=== PATIENT | male | born 1955 | race Caucasian/White ===

== ENCOUNTER 2020-07-14 07:34 | Outpatient (REF) | payer OTHER, SELFPAY | END 2020-07-14 07:35 | disposition home or self-care (01) | LOC: HO.LAB 07:34 | PROVIDERS: PCP Internal Medicine; Visit Provider Internal Medicine | DX: Z12.5 Encounter for screening for malignant neoplasm of prostate (principal) | CPT/HCPCS: 84153 ==

== ENCOUNTER 2021-01-11 09:42 | Outpatient (REF) | payer MEDICARE, SELFPAY ==
[2021-01-11 10:59] LABS: MANUAL DIFF FLAG NO
[2021-01-11 11:07] LABS: Basophils Percent Auto 0.6 % (0-2); Eosinophils Absolute Auto 0.1 X10*3/uL (0.0-0.4); Eosinophils Percent Auto 1.7 % (0-4); Hematocrit 47.8 % (42-52); Hemoglobin 15.9 g/dl (14.0-18.0); Imm Gran Abs Auto 0.01 X10*3/uL (0.00-0.03); Imm Gran Pct Auto 0.2 % (0.0-0.4); Lymphocytes Absolute Auto 1.4 X10*3/uL (1.2-4.9); Lymphocytes Percent Auto 25.9 % (20-40); Mean Corpuscular HGB Conc 33.3 g/dl (31.0-36.0); Mean Corpuscular Hemoglobin 32.7 pg (27.0-33.0); Mean Corpuscular Volume 98.4 fL (80-98); Mean Platelet Volume 11.4 fL (9.4-12.4); Monocytes Absolute Auto 0.5 X10*3/uL (0.1-1.2); Monocytes Percent Auto 10.3 % (2-11); Neutrophils Absolute Auto 3.2 X10*3/uL (2.0-8.3); Neutrophils Percent Auto 61.3 % (45-73); Platelet Count 145 X10*3/uL (160-400); Red Blood Count 4.86 X10*6/uL (4.60-5.80); White Blood Count 5.2 X10*3/uL (4.8-10.8)
[2021-01-11 11:45] LABS: Cholesterol 167 mg/dL; HDL Cholesterol 50 mg/dL; LDL Cholesterol Calculated 96 mg/dl; Triglycerides 107 mg/dL
[2021-01-11 12:01] LABS: Alanine Aminotransferase 14 U/L (0-40); Albumin Level 4.4 g/dL (3.5-5.0); Alkaline Phosphatase 78 U/L (39-117); Anion Gap 10 (12-20); Aspartate Amino Transferase 16 U/L (5-37); Bilirubin Total 1.2 mg/dL (0.0-1.0); Blood Urea Nitrogen 18 mg/dL (9-16); Calcium 8.8 mg/dL (8.4-10.2); Carbon Dioxide 30 mmol/L (22-29); Chloride 106 mmol/L (96-108); Estimated Glomerular Filt Rate 58; Glucose Random 90 mg/dL (60-115); Potassium 4.4 mmol/L (3.3-5.1); Sodium 142 mmol/L (135-145)
[2021-01-11 12:07] LABS: Thyroid Stimulating Hormone 0.64 uIU/mL (0.32-4.0)
[2021-01-14 21:16] LABS: Transferrin 249 mg/dL (188-341)
[2021-01-18 12:27] LABS: VITAMIN D (1,25 OH) D3 49 pg/mL; Vit D (1,25-Dihydroxy) Total 49 pg/mL (18-72); Vitamin D (1,25 OH) D2 <8 pg/mL
== END 2021-01-11 09:43 | disposition home or self-care (01) ==
LOC: HO.LAB 09:42
PROVIDERS: Absent Provider Internal Medicine; PCP Internal Medicine; Visit Provider Orthopaedic Surgery
DX: E78.9 Disorder of lipoprotein metabolism, unspecified (principal); K59.00 Constipation, unspecified; E46 Unspecified protein-calorie malnutrition; E55.9 Vitamin D deficiency, unspecified; M25.551 Pain in right hip
CPT/HCPCS: 36415; 80053; 80061; 82652; 84134; 84443; 84466; 85025

== ENCOUNTER 2021-07-27 08:35 | Outpatient (REF) | payer MEDICARE, OTHER, SELFPAY ==
[2021-07-27 08:56] LABS: MANUAL DIFF FLAG NO
[2021-07-27 09:13] LABS: Basophils Percent Auto 0.9 % (0-2); Eosinophils Absolute Auto 0.1 X10*3/uL (0.0-0.4); Eosinophils Percent Auto 2.6 % (0-4); Hematocrit 44.7 % (42-52); Imm Gran Abs Auto 0.01 X10*3/uL (0.00-0.03); Imm Gran Pct Auto 0.2 % (0.0-0.4); Lymphocytes Percent Auto 23.2 % (20-40); Mean Corpuscular HGB Conc 33.6 g/dl (31.0-36.0); Mean Corpuscular Hemoglobin 33.2 pg (27.0-33.0); Mean Corpuscular Volume 98.9 fL (80-98); Mean Platelet Volume 11.3 fL (9.4-12.4); Monocytes Absolute Auto 0.5 X10*3/uL (0.1-1.2); Monocytes Percent Auto 11.5 % (2-11); Neutrophils Absolute Auto 2.6 X10*3/uL (2.0-8.3); Neutrophils Percent Auto 61.6 % (45-73); Platelet Count 152 X10*3/uL (160-400); Red Blood Count 4.52 X10*6/uL (4.60-5.80); Red Cell Distribution Width 12.5 % (11.0-16.0); White Blood Count 4.3 X10*3/uL (4.8-10.8)
[2021-07-27 09:53] LABS: Alanine Aminotransferase 19 U/L (0-40); Albumin Level 4.2 g/dL (3.5-5.0); Alkaline Phosphatase 78 U/L (39-117); Anion Gap 10 (12-20); Aspartate Amino Transferase 32 U/L (5-37); Bilirubin Total 1.1 mg/dL (0.0-1.0); Blood Urea Nitrogen 12 mg/dL (9-16); Calcium 9.2 mg/dL (8.4-10.2); Carbon Dioxide 29 mmol/L (22-29); Chloride 104 mmol/L (96-108); Estimated Glomerular Filt Rate > 60; Glucose Random 101 mg/dL (60-115); Potassium 4.2 mmol/L (3.3-5.1); Sodium 139 mmol/L (135-145); Total Protein 6.7 g/dL (6.5-8.0)
[2021-07-27 10:13] LABS: Free T4 (Free Thyroxine) 0.92 ng/dL (0.71-1.85)
[2021-07-27 10:14] LABS: Prostate Specific Antigen Scr 1.43 ng/mL (<0.05-4.0); Thyroid Stimulating Hormone 0.47 uIU/mL (0.32-4.0)
[2021-07-27 10:28] LABS: Appearance Urine CLEAR; Color Urine YELLOW; Glucose Urine UA NEG (NEG); Leukocyte Esterase Urine NEG (NEG); Nitrite Urine NEG (NEG); Urine Blood NEG (NEG); Urine Ketones NEG (NEG); Urine Protein NEG (NEG-TRACE)
[2021-07-29 08:01] LABS: HIV AB/AG Nonreactive (Nonreactive); HIV Num 1 0.06 S/CO (0.00-0.99); ~Hepatitis C Antibody Nonreactive (Nonreactive)
== END 2021-07-27 08:36 | disposition home or self-care (01) ==
LOC: HO.LAB 08:35
PROVIDERS: PCP Internal Medicine; Visit Provider Internal Medicine
DX: Z12.5 Encounter for screening for malignant neoplasm of prostate (principal); Z11.59 Encounter for screening for other viral diseases; Z11.4 Encounter for screening for human immunodeficiency virus [HIV]; M89.49 Other hypertrophic osteoarthropathy, multiple sites; R63.4 Abnormal weight loss
CPT/HCPCS: 36415; 80053; 81003; 84153; 84439; 84443; 85025; 86803; 87389

== ENCOUNTER 2022-08-02 07:13 | Outpatient (REF) | payer MEDICARE, SELFPAY ==
[2022-08-02 07:29] LABS: MANUAL DIFF FLAG NO
[2022-08-02 08:09] LABS: Basophils Absolute Auto 0.1 X10*3/uL (0.0-0.2); Basophils Percent Auto 0.8 % (0-2); Eosinophils Absolute Auto 0.3 X10*3/uL (0.0-0.4); Eosinophils Percent Auto 5.6 % (0-4); Hematocrit 47.9 % (42.0-52.0); Hemoglobin 16.1 g/dl (14.0-18.0); Imm Gran Abs Auto 0.01 X10*3/uL (0.00-0.03); Imm Gran Pct Auto 0.2 % (0.0-0.4); Lymphocytes Absolute Auto 1.6 X10*3/uL (1.2-4.9); Lymphocytes Percent Auto 27.1 % (20-40); Mean Corpuscular HGB Conc 33.6 g/dl (31.0-36.0); Mean Corpuscular Hemoglobin 32.3 pg (27.0-33.0); Mean Platelet Volume 10.7 fL (9.4-12.4); Monocytes Absolute Auto 0.6 X10*3/uL (0.1-1.2); Monocytes Percent Auto 10.8 % (2-11); Neutrophils Absolute Auto 3.3 x10*3/uL (2.0-8.3); Neutrophils Percent Auto 55.5 % (45-73); Platelet Count 159 X10*3/uL (160-400); Red Blood Count 4.99 X10*6/uL (4.60-5.80); Red Cell Distribution Width 12.2 % (11.0-16.0); White Blood Count 5.9 X10*3/uL (4.8-10.8)
[2022-08-02 08:19] LABS: Estimated Average Glucose 108 mg/dL; Hemoglobin A1c % 5.4 %
[2022-08-02 08:44] LABS: Alanine Aminotransferase 14 U/L (0-40); Albumin Level 4.2 g/dL (3.5-5.0); Alkaline Phosphatase 76 U/L (39-117); Anion Gap 13 (12-20); Aspartate Amino Transferase 20 U/L (5-37); Bilirubin Total 0.9 mg/dL (0.0-1.0); Blood Urea Nitrogen 14 mg/dL (9-16); Calcium 9.4 mg/dL (8.4-10.2); Carbon Dioxide 29 mmol/L (22-29); Chloride 104 mmol/L (96-108); Cholesterol 168 mg/dL; Estimated Glomerular Filt Rate 58; Glucose Random 94 mg/dL (60-115); HDL Cholesterol 47 mg/dL; LDL Cholesterol Calculated 96 mg/dl; Potassium 4.4 mmol/L (3.3-5.1); Sodium 142 mmol/L (135-145); Total Protein 6.8 g/dL (6.5-8.0); Triglycerides 129 mg/dL
[2022-08-02 09:06] LABS: Free T4 (Free Thyroxine) 0.96 ng/dL (0.71-1.85); Prostate Specific Antigen 1.76 ng/mL (<0.05-4.0); Thyroid Stimulating Hormone 1.04 uIU/mL (0.32-4.0)
== END 2022-08-02 07:14 | disposition home or self-care (01) ==
LOC: HO.LAB 07:13
PROVIDERS: PCP Internal Medicine; Visit Provider Internal Medicine
DX: M15.9 Polyosteoarthritis, unspecified (principal); M79.641 Pain in right hand; M79.642 Pain in left hand; R73.01 Impaired fasting glucose; R53.81 Other malaise; R53.83 Other fatigue; D69.6 Thrombocytopenia, unspecified; Z12.5 Encounter for screening for malignant neoplasm of prostate; Z13.220 Encounter for screening for lipoid disorders
CPT/HCPCS: 36415; 80053; 80061; 83036; 84153; 84439; 84443; 85025

== ENCOUNTER 2023-02-28 08:49 | Outpatient (REF) | payer MEDICARE, OTHER, SELFPAY ==
[2023-02-28 09:07] LABS: MANUAL DIFF FLAG NO
[2023-02-28 09:16] LABS: Basophils Absolute Auto 0.1 X10*3/uL (0.0-0.2); Basophils Percent Auto 0.9 % (0-2); Eosinophils Absolute Auto 0.2 X10*3/uL (0.0-0.4); Eosinophils Percent Auto 4.2 % (0-4); Hematocrit 46.5 % (42.0-52.0); Hemoglobin 15.8 g/dl (14.0-18.0); Imm Gran Abs Auto 0.01 X10*3/uL (0.00-0.03); Imm Gran Pct Auto 0.2 % (0.0-0.4); Lymphocytes Absolute Auto 1.5 X10*3/uL (1.2-4.9); Lymphocytes Percent Auto 25.5 % (20-40); Mean Corpuscular Volume 97.1 fL (80.0-98.0); Mean Platelet Volume 10.8 fL (9.4-12.4); Monocytes Absolute Auto 0.7 X10*3/uL (0.1-1.2); Monocytes Percent Auto 11.3 % (2-11); Neutrophils Absolute Auto 3.3 x10*3/uL (2.0-8.3); Neutrophils Percent Auto 57.9 % (45-73); Platelet Count 149 X10*3/uL (160-400); Red Blood Count 4.79 X10*6/uL (4.60-5.80); Red Cell Distribution Width 12.1 % (11.0-16.0); White Blood Count 5.7 X10*3/uL (4.8-10.8)
[2023-02-28 09:47] LABS: Alanine Aminotransferase 21 U/L (0-40); Alkaline Phosphatase 69 U/L (39-117); Anion Gap 10 (12-20); Aspartate Amino Transferase 21 U/L (5-37); Bilirubin Total 0.9 mg/dL (0.0-1.0); Blood Urea Nitrogen 15 mg/dL (9-16); Calcium 9.1 mg/dL (8.4-10.2); Carbon Dioxide 29 mmol/L (22-29); Chloride 105 mmol/L (96-108); Estimated Glomerular Filt Rate 57; Glucose Random 87 mg/dL (60-115); Potassium 4.1 mmol/L (3.3-5.1); Sodium 140 mmol/L (135-145); Total Protein 6.5 g/dL (6.5-8.0)
== END 2023-02-28 08:50 | disposition home or self-care (01) ==
LOC: HO.LAB 08:49
PROVIDERS: PCP Internal Medicine; Visit Provider Internal Medicine
DX: M15.9 Polyosteoarthritis, unspecified (principal)
CPT/HCPCS: 36415; 80053; 85025

== ENCOUNTER 2023-04-08 13:06 | Outpatient (REF) | payer MEDICARE, OTHER, SELFPAY ==
[2023-04-08 14:32] LABS: Blood Urea Nitrogen 17 mg/dL (9-16); Estimated Glomerular Filt Rate 57
== END 2023-04-08 13:07 | disposition home or self-care (01) ==
LOC: HO.LAB 13:06
PROVIDERS: PCP Internal Medicine; Visit Provider Internal Medicine
DX: R79.89 Other specified abnormal findings of blood chemistry (principal)
CPT/HCPCS: 36415; 82565; 84520

== ENCOUNTER 2023-04-16 08:30 | Outpatient (REF) | payer MEDICARE, OTHER, SELFPAY ==
--- NOTE | ~2023-04-16 | US_ITS ---
EXAMINATION: US RETROPERITONEAL LIMITED (RENAL ONLY) CLINICAL INFORMATION: Renal insufficiency. COMPARISON: None available. TECHNIQUE: Real-time imaging of the kidneys. FINDINGS: RIGHT KIDNEY: 12.6 x 5.6 x 5.8 cm (SAG x AP x TRV). The kidney is normal in size, contour, and echogenicity. Renal cortical thickness is normal. No calculi or focal parenchymal lesions. No hydronephrosis. LEFT KIDNEY: 12.9 x 6.0 x 5.3 cm (SAG x AP x TRV). The kidney is normal in size, contour, and echogenicity. Renal cortical thickness is normal. No calculi or focal parenchymal lesions. No hydronephrosis. US/US renal BI IMPRESSION: No evidence of obstruction, suspicious mass or shadowing calculus. The renal cortex appears normal in thickness and the renal length is within normal limits on each side
== END 2023-04-16 08:31 | disposition home or self-care (01) ==
LOC: HO.US 08:30
PROVIDERS: PCP Internal Medicine; Visit Provider Internal Medicine
DX: N28.9 Disorder of kidney and ureter, unspecified (principal)
CPT/HCPCS: 76775

== ENCOUNTER 2023-04-24 17:44 | Emergency (ER) | payer MEDICARE, OTHER, SELFPAY ==
--- NOTE | ~2023-04-24 | CT_ITS ---
EXAMINATION: CT HEAD WITHOUT CONTRAST CT CERVICAL SPINE WITHOUT CONTRAST CLINICAL INFORMATION: Fall, pain. COMPARISON: None TECHNIQUE: Contiguous axial imaging was performed from the skull base to vertex without intravenous administration of contrast. Contiguous axial imaging was performed from the upper chest through the skull base without intravenous administration of contrast. Coronal and sagittal reformats were obtained at the acquisition workstation. This CT examination was performed using dose optimization techniques as appropriate, variously including the following: *Automated exposure control *Adjustment of mA and/or kV according to patient size (this includes techniques or standardized protocols for targeted exams where dose is matched to indication/reason for exam; i.e. extremities or head) *Use of iterative reconstruction technique DLP: 751 and 607 mGy-cm FINDINGS: Head: There is no evidence of acute intracranial hemorrhage or edematous territorial infarction. A few foci of hypoattenuation in the periventricular and deep white matter are consistent with mild microangiopathy. Luis-white matter differentiation is preserved. Proportional prominence of the ventricles and sulcal spaces. No evidence for obstructive hydrocephalus. No abnormal mass effect or midline shift. No extra-axial fluid collections. No acute soft tissue or osseous abnormalities. Partial opacification of the frontal sinuses and ethmoidal air cells. Small air-fluid level in the sphenoidal sinuses. The mastoids and middle ear cavities are clear. Cervical Spine: The atlantooccipital and atlantoaxial articulations remain well aligned. Straightening of the normal cervical lordosis. Otherwise, there is anatomic alignment of the vertebral bodies and posterior elements. No evidence of acute fracture or subluxation. Mild to moderate multilevel cervical spondylosis leading to various degrees of neural foraminal encroachment. There is no prevertebral soft tissue swelling. The thyroid gland and remaining cervical soft tissues are normal in appearance. The lung apices demonstrate no abnormalities. CT/CT cervical spine wo IV con IMPRESSION: 1. No acute intracranial pathology. 2. No acute cervical spinal fractures or malalignment. 3. Paranasal sinus disease. Correlate clinically for acute sinusitis.
--- NOTE | ~2023-04-24 | XR_ITS ---
EXAMINATION: XR WRIST, RIGHT CLINICAL INFORMATION: Fall, pain. COMPARISON: None available. TECHNIQUE: Four views of the right wrist. FINDINGS: No evidence of acute fractures or subluxation. Moderate joint space narrowing and subcortical sclerosis of the first carpometacarpal joint and triscaphe space. No erosions or abnormal soft tissue calcifications. No unexpected radiopaque foreign bodies. XR/XR wrist RT min 3V IMPRESSION: 1. No acute fractures or subluxation. 2. 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
--- NOTE | ~2023-04-24 | XR_ITS ---
EXAMINATION: XR SHOULDER, RIGHT CLINICAL INFORMATION: Fall. COMPARISON: None available. TECHNIQUE: Four views of the right shoulder. FINDINGS: No acute fractures or subluxation. Moderate narrowing with subcortical sclerosis and proliferative changes in the acromioclavicular joint suggesting degenerative osteoarthritis. No abnormal soft tissue calcifications. Included portions of the right-sided ribs and right lung are within normal limits. XR/XR shoulder RT min 2V IMPRESSION: 1. No acute fractures or subluxation. 2. 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
[2023-04-24 18:47] VITALS: BP 145/91; PULSE 66; RESP 18; TEMP 36.6; O2SAT 95; BMI 33.5
--- NOTE | 2023-04-24 18:49 | ED_ITS ---
HPI - General Adult General Chief complaint: Fall Stated complaint: Fall Time Seen by Provider: 04/24/23 20:51 Source: patient Mode of arrival: ambulatory Limitations: no limitations History of Present Illness HPI narrative: Patient is a 67 year old assigned male at with a history of cervical arthritis presenting to the emergency department today with right wrist, should, and head pain after a fall. Patient states that he was attempting to step around a curb when she tripped and fell, striking his head. Patient denies any loss of consciousness. Patient states that his right wrist and 5th finger knuckle are what hurts the most. Patient denies any dizziness, lightheadedness, abdominal pain, nausea, vomiting, fever, chills, blurry vision, double vision, loss of vision, chest pain, difficulty breathing, shortness of breath, back pain, night sweats, pain with urination, increased urinary frequency, increased urinary urgency, blood in his urine or stool, syncope or a near syncopal episode, bowel incontinence, bladder incontinence, bowel retention, bladder retention, or any other complaints at this time. Onset (ago): hour(s) Location: head, right and upper extremity Severity: mild Severity scale (1-10): 3 Quality: aching and dull Pain Consistency: constant Relieving factors: none Exacerbating factors: none Associated symptoms: denies other symptoms Treatments prior to arrival: none Related Data Allergies Allergy/AdvReac Type Severity Reaction Status Date / Time amoxicillin [AMOXICILLIN] Allergy Unknown HIVES Verified 04/24/23 18:55 diclofenac [DICLOFENAC] Allergy Unknown HIVES Verified 04/24/23 18:55 Review of Systems Constitutional: Constitutional: Reports no additional constitutional complaints, Denies chills, Denies fever(s) and Denies night sweats Eyes: Eyes: Reports no additional eye complaints, Denies blurry vision, Denies change in vision, Denies diplopia, Denies eye discharge, Denies loss of vision and Denies eye pain ENT: Denies dizziness Cardiovascular: Cardiovascular: Reports no additional cardiovascular complaints, Denies chest pain, Denies lightheadedness, Denies Loss of Consciousness and Denies dyspnea Respiratory: Respiratory: Reports no additional respiratory complaints and Denies dyspnea Gastrointestinal: Gastrointestinal: Reports no additional gastrointestinal complaints, Denies abdominal pain, Denies melena, Denies hematochezia, Denies change in bowel habits and Denies change in stool character Genitourinary: Genitourinary: Reports no additional male genitourinary complaints, Denies hematuria, Denies oliguria, Denies difficulty urinating, Denies dysuria, Denies urinary frequency, Denies urinary hesitancy, Denies urinary incontinence and Denies urinary urgency Musculoskeletal: Musculoskeletal: Reports no additional musculoskeletal complaints, Denies numbness and Denies tingling Comments: right shoulder pain, right wrist / 5th knuckle pain, and headache Neurologic: Denies dizziness, Denies loss of vision, Denies numbness and Denies tingling Psychiatric: Psychiatric: Reports no additional psychiatric complaints Endocrine: Endocrine: Reports no additional endocrine complaints Hematologic/Lymphatic: Hematologic/Lymphatic: Reports no additional hematologic/lymphatic complaints Allergic/Immunologic: Allergic/Immunologic: Reports no additional allergic/immunologic complaints PMFSH Past Medical History Attestation statement: The following information was validated with the patient. Source: old records reviewed and nursing notes reviewed Social History Social History Advance Directives: No Advance Directives Information Provided: No Physical Exam ED Vital Signs: Vital Signs - 24 hr 04/24/23 18:47 Temperature 98 F Pulse Rate 66 Respiratory Rate 18 Blood Pressure 145/91 H Pulse Oximetry 95 Oxygen Delivery Method Room Air BMI result Body Mass Index 33.5 Const General: cooperative, no acute distress, alert and awake Nutritional Appearance: well nourished Orientation/consciousness: patient oriented x3 Limitations: no limitations HENMT Head: Yes normal to inspection and Yes atraumatic Ears: hearing grossly normal bilaterally and external ears normal General nose exam: Normal external nose present, no nasal discharge noted and no epistaxis Face and sinus: Yes normal facial exam, No abrasion and No laceration Mouth: Normal oral and palatal mucosa present, no drooling and no muffled voice Eyes General: appearance normal, both eyes and all related structures Periorbital: periorbital findings normal Eyelids: Yes eyelids normal Conjunctivae: conjunctivae normal Pupils: Equal, round and reactive pupils present EOM: EOMs intact bilaterally Neck Neck: Yes normal visual inspection, Yes full ROM and Yes no lymphadenopathy Chest Chest palpation & inspection: normal inspection of the chest Resp Effort & Inspection: normal respiratory effort and able to speak in complete sentences GI Inspection: Yes normal to inspection Neuro General: patient oriented x3 and moves all extremities Cranial nerves: Yes Equal, round and reactive pupils present Cognition (Neuro): normal cognition Motor exam (neuro): 5/5 motor strength present throughout Sensory Exam: Normal double simultaneous stimulation for sensation Coordination: [id number] test normal Extrem Other: abrasions present to the lateral aspect of the right forearm, no active bleeding, no gaping areas. Pain with palpation of the right 5th MCP joint and right wrist General: Yes full ROM and Yes capillary refill normal Psych Appearance: grossly normal Mental Status: mental status grossly normal Affect: normal affect Attitude: cooperative Thought process: Normal thought process present Thought content: Normal thought content present Insight: Good insight present (Psych) Course Course Course Narrative: RME performed by Ann Lorenzo PA-C. Patient is a 67 year old assigned male at presenting to the emergency department with a fall. 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 Patient denies any loss of consciousness. Imaging ordered. Patient placed back in the waiting room pending room availability and results. Medications Administered Discontinued Medications Generic Name Dose Route Start Last Admin Trade Name Freq PRN Reason Stop Dose Admin Bacitracin 1 appl 04/24/23 20:58 04/24/23 21:33 Bacitracin Oint 0.9 Gm Packet TOPICAL 04/24/23 20:59 1 appl ONCE ONE Administration Protocol Procedures Orthopedic Splinting/Casting Injury #1: Side: right Upper Extremity Injury Location: wrist and hand Upper Extremity Immobilizer: sling/shoulder immobilizer and ulnar gutter Medical Decision Making Medical Decision Making MDM Narrative: Patient is a 67] year old assigned male at with a history of cervical arthritis presenting to the emergency department today with right wrist / 5th knuckle pain, right shoulder pain, and a headache. Patient's physical exam was as noted in the physical exam portion of this chart. Patient's right wrist and right shoulder x-rays showed no acute process. Patient's head and C-Spine CTs showed no acute process. Given the patient's pain upon palpation to the right 5th MCP joint and wrist, I splinted the patient's right wrist in an ulnar gutter splint with a sling. Patient's PMS was intact prior to and after splint and sling placement. Patient's abrasions were covered with bacitracin and non- adherent gauze before splint placement. I explained my physical exam findings as well as all test results to the patient. I answered all questions asked by the patient. I stressed the importance of the patient taking his medication as prescribed. I stressed the importance of the patient following up with his primary care provider and an orthopedic provider. I stressed the importance of the patient returning to the emergency department immediately if his symptoms were to worsen or if he were to develop any dizziness, shortness of breath, difficulty breathing, chest pain, blurry vision, loss of vision, nausea, vomiting, abdominal pain, fever, chills, back pain, or any other complaints. Patient verbalized agreement and understanding with this treatment plan and discharge. Differential Diagnosis Differential Diagnoses: The differential diagnosis associated with the presentation includes Right wrist fx Rght wrist sprain Right wrist strain Fall Independent Interpretation I performed an independent interpretation of an: Plain X-Ray Interpretation: My interpretation is in agreement with the radiologist's impression of these imaging studies. EXAMINATION: CT HEAD WITHOUT CONTRAST CT CERVICAL SPINE WITHOUT CONTRAST CLINICAL INFORMATION: Fall, pain.? COMPARISON: None TECHNIQUE: Contiguous axial imaging was performed from the skull base to vertex without intravenous administration of contrast. Contiguous axial imaging was performed from the upper chest through the skull base without intravenous administration of contrast. Coronal and sagittal reformats were obtained at the acquisition workstation. This CT examination was performed using dose optimization techniques as appropriate, variously including the following: *Automated exposure control *Adjustment of mA and/or kV according to patient size (this includes techniques or standardized protocols for targeted exams where dose is matched to indication/reason for exam; i.e. extremities or head) *Use of iterative reconstruction technique DLP: 751 and 607 mGy-cm FINDINGS: Head: There is no evidence of acute intracranial hemorrhage or edematous territorial infarction. A few foci of hypoattenuation in the periventricular and deep white matter are consistent with mild microangiopathy. Luis-white matter differentiation is preserved. Proportional prominence of the ventricles and sulcal spaces. No evidence for obstructive hydrocephalus. No abnormal mass effect or midline shift. No extra-axial fluid collections. No acute soft tissue or osseous abnormalities. Partial opacification of the frontal sinuses and ethmoidal air cells. Small air-fluid level in the sphenoidal sinuses. The mastoids and middle ear cavities are clear. Cervical Spine: The atlantooccipital and atlantoaxial articulations remain well aligned. Straightening of the normal cervical lordosis. Otherwise, there is anatomic alignment of the vertebral bodies and posterior elements. No evidence of acute fracture or subluxation. Mild to moderate multilevel cervical spondylosis leading to various degrees of neural foraminal encroachment. There is no prevertebral soft tissue swelling. The thyroid gland and remaining cervical soft tissues are normal in appearance. The lung apices demonstrate no abnormalities. CT/CT head/brain wo IV con IMPRESSION: 1.? No acute intracranial pathology. 2.? No acute cervical spinal fractures or malalignment. 3.? Paranasal sinus disease. Correlate clinically for acute sinusitis. Dictated By: Mary Zuniga Signed By: Electronically signed by Rosalino 04/24/232024 EXAMINATION: XR WRIST, RIGHT CLINICAL INFORMATION: Fall, pain.? COMPARISON: None available.? TECHNIQUE: Four views of the right wrist. FINDINGS: No evidence of acute fractures or subluxation. Moderate joint space narrowing and subcortical sclerosis of the first carpometacarpal joint and triscaphe space. No erosions or abnormal soft tissue calcifications. No unexpected radiopaque foreign bodies.? XR/XR wrist RT min 3V IMPRESSION: 1.? No acute fractures or subluxation. 2.? 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 Dictated By: Mary Zuniga Signed By: Electronically signed by Mary Zuniga 04/24/231930 EXAMINATION: XR SHOULDER, RIGHT CLINICAL INFORMATION: Fall.? COMPARISON: None available.? TECHNIQUE: Four views of the right shoulder. FINDINGS: No acute fractures or subluxation. Moderate narrowing with subcortical sclerosis and proliferative changes in the acromioclavicular joint suggesting degenerative osteoarthritis. No abnormal soft tissue calcifications. Included portions of the right-sided ribs and right lung are within normal limits.? XR/XR shoulder RT min 2V IMPRESSION: 1.? No acute fractures or subluxation. 2.? 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 Dictated By: Mary Zuniga Signed By: Electronically signed by Rosalino 04/24/231928 Radiology Impression Discussion of test interpretation with radiology: I have reviewed the radiologist's reading. Discharge Plan Discharge Clinical Impression: Sprain of right wrist, Abrasion Patient Disposition: Home, Self-Care Instructions: Sprain (ED) Additional Instructions: Follow up with your primary care provider and an orthopedic provider. Return to the emergency department immediately if your symptoms worsen or if you develop any dizziness, shortness of breath, difficulty breathing, chest pain, blurry vision, loss of vision, nausea, vomiting, abdominal pain, fever, chills, back pain, or any other complaints. Referrals: [facility] [Provider Group] (Call to establish and follow up with an orthopedic provider.) Donald Pérez MD [Primary Care Provider] - Interventions: ED Discharge Assessment Last Done: 04/24/23 21:34 Discharge Date/Time: 04/24/23 22:14 Print Language: Monegasque
[2023-04-24] MEDS: Bacitracin Oint 0.9 GM PACKET 1 APPL TOPICAL (21:33)
== END 2023-04-24 22:14 | disposition home or self-care (01) ==
PROVIDERS: Emergency Provider Emergency Medicine; PCP Internal Medicine
DX: S63.501A Unspecified sprain of right wrist, initial encounter (principal); S50.811A Abrasion of right forearm, initial encounter; W10.1XXA Fall (on)(from) sidewalk curb, initial encounter; R51.9 Headache, unspecified; Y93.9 Activity, unspecified; Y92.480 Sidewalk as the place of occurrence of the external cause; Y99.9 Unspecified external cause status
CPT/HCPCS: 29125; 70450; 72125; 73030; 73110; 99283; 99284

== ENCOUNTER 2023-05-06 12:54 | Outpatient (AMB) | payer MEDICARE, SELFPAY ==
--- NOTE | 2023-05-06 13:15 | MHC.OFFVIS ---
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 Patient reports that he had a fall landing on right shoulder, arm and hip. He [place] [facility] [place] where xrays were taken and was placed in a splint. Currently he has pain in his 5th MCP joint as well as swelling. States tenderness in his right shoulder. Denies numbness or tingling. Hx of hip replacement in January of 2021. 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 He was seen at ER where x-rays were performed and he was placed in a splint. He states he has pain and swelling in his 5th MCP joint. He also c/o tenderness in is right shoulder. He denies any numbness or tingling. [facility] Surgical History (Updated 05/06/23 @ 13:22 by ESSIE Kay) History of right hip replacement Social History (Updated 05/06/23 @ 13:28 by ESSIE Kay) Patient Tobacco Use Status: Never used Tobacco Current occupational status: retired Review of Systems Const All systems reviewed & are unremarkable except as noted in HPI and below Physical Exam Vital Signs: BMI result Body Mass Index 33.5 Extrem Other: Right 5th metacarpal: Pain along the 5th mcp. No pain along the anatomical snuffbox. He is able to make a full fist and fully extend. He does have pain along the Scapholunate distribution. Pain with compression. NVI. Results Reviewed Results Reviewed: Xrays were obtained in the office today and personally reviewed by me of the right hand negative for obvious fracture or dislocation. Assessment & Plan Assessment & Plan (1) Sprain of right wrist: Code(s): S63.501A - Unspecified sprain of right wrist, initial encounter Plan We discussed options which include OT, NSAIDs and bracing. The patient will proceed with PT and NSAIDs. He was given a comfort wrist splint to wear at night and with any type of strenuous activities for the next 3 weeks. If symptoms persist or worsens, patient will contact the office, otherwise follow-up as needed. Orders: Orders XR hand RT min 3V Today M79.641 - Pain in right hand OT Evaluation and Treatment Today S63.501A - Unspecified sprain of right wrist, initial encounter Patient Instructions: Scribed for Dillon Clark PA-C, by Sunny Arango medical detailist, on 05/06/2023 at 1:00 PM EST. I, Dillon Clark PA-C, have personally reviewed and agree with the information entered by the scribe. Coding Level of Care Code New Pt Level 3 (82897) Diagnoses Sprain of right wrist S63.501A
[2023-05-06 13:27] VITALS: BMI 33.5
== END 2023-05-06 14:26 | disposition home or self-care (01) ==
PROVIDERS: PCP Internal Medicine; Visit Provider Physician Assistant
DX: S63.501A Unspecified sprain of right wrist, initial encounter (principal)
CPT/HCPCS: 99203

== ENCOUNTER 2023-05-06 12:54 | Outpatient (REF) | payer MEDICARE, OTHER, SELFPAY ==
--- NOTE | ~2023-05-06 | XR_ITS ---
EXAMINATION: XR HAND, RIGHT CLINICAL INFORMATION: Pain in right hand COMPARISON: None available. TECHNIQUE: PA, lateral, and oblique views of the right hand. FINDINGS: The bones and soft tissues are normal. No fracture. Alignment is anatomic. Joint spaces are maintained. Nonspecific cyst is seen in the navicular bone. Small erosion is seen in the distal first metacarpal. No soft tissue calcifications. XR/XR hand RT min 3V IMPRESSION: No acute bony abnormality.
== END 2023-05-06 12:55 | disposition home or self-care (01) ==
LOC: HO.HOSX 12:54
PROVIDERS: PCP Internal Medicine; Visit Provider Physician Assistant
DX: S63.501A Unspecified sprain of right wrist, initial encounter (principal); M79.641 Pain in right hand; M25.511 Pain in right shoulder; W19.XXXA Unspecified fall, initial encounter; Y93.9 Activity, unspecified; Y92.9 Unspecified place or not applicable; Y99.9 Unspecified external cause status
CPT/HCPCS: 73130; 99202

== ENCOUNTER 2023-07-14 14:00 | Outpatient (RCR) | payer MEDICARE, OTHER, SELFPAY ==
--- NOTE | 2023-07-14 15:09 | MHC.OT.DC ---
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 Continued low wrist pain with end range wrist flexion and extension and with strain at D5 MCP jt . Goals met for ROM , hand function and HEP Wrist discomfort with extensive mousing , spraying with a spray can, opening new jar lids and lifting greater than 5 pounds. Proximal forearm and upper arm pain with heavier weights. Quick DASH score 11.6 points Wrist flexion 60 deg. Wrist ext 70 deg [address]ination [address] R 67 lb L 110 lb Increase in right forearm circumference noted Pt is highly motivated and independent with his HEP. Slow improvement due to unrelated, undiagnosed proximal pathology Goals met Electronically Signed By: Serena Ceballos OT CHT CLT Reviewed/agree with student documentation: Therapist: Please Sign and return to therapist, thank you for your referral.
== END 2023-07-14 15:10 | disposition home or self-care (01) ==
LOC: HO.OT 14:00
PROVIDERS: PCP Internal Medicine; Visit Provider Physician Assistant
DX: S63.501A Unspecified sprain of right wrist, initial encounter (principal)
CPT/HCPCS: 97033; 97110; 97140; 97165

== ENCOUNTER 2023-08-12 12:55 | Outpatient (AMB) | payer MEDICARE, OTHER, SELFPAY ==
--- NOTE | 2023-08-12 13:06 | HO.SPINEOV ---
Intake Intake Visit Reasons: second opinion on SX Intake Note: Mr. Vincent is here today c/o neck and low back pain. Seeking 2nd opinion. MRI done @ [facility]/brought disc. 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 Mehdi Vincent for right arm weakness. HPI: This patient has a longstanding history of posterior neck pain and intermittent right supra clavicular and shoulder pain. Currently has no radiating pain down his arm. His main complaint is atrophy of his biceps and diffuse arm weakness and intermittent numbness of his palmar side of his hand. The weakness is not progressive. In fact, his strength has improved with physical therapy and exercises. 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 He has seen 3 other surgeons. Two of them recommended an anterior diskectomy and fusion while another surgeon advised him to undergo a nonfusion surgery to decompress the C5 and C6 nerve root. A 2nd complaint is moderate right-sided back pain without radiculopathy. He had a diskectomy done 35 years ago. Physical Exam: Pleasant male. On inspection there is atrophy of the biceps musculature. 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 Normal strength on the left arm and lower extremities. Sensory exam is intact. Biceps reflexes absent on the left side. Brachioradial reflex seems to be slightly diminished compared to the left side. Triceps reflexes are absent bilaterally. The left side is unaffected Radiological Studies: MRI of the cervical spine shows multilevel cervical spondylosis. No spinal cord compression. There is [id number] stenosis of the right C4 foramen and moderate to severe C5 and C6 foraminal stenosis with compression of the exiting nerve roots. Impression/Plan: Clinically this patient is suffering from at least a C6 radiculopathy but the C5 nerve root also seems to be involved( deltoid weakness). This corresponds with the MRI findings of C5 and C6 nerve root involvement. However I do think that a plexopathy needs to be excluded. He is scheduled to undergo an EMG in the near future. I am anxious to see what the results are. I told him that I would offer him a posterior C5-C6 foraminotomy if he does not want a fusion. I think this is a very reasonable approach as he only has unilateral symptoms. However, I stressed to him that surgery to improve weakness is not a good indication. I would only offer him surgery if he has progression of his weakness or if he develops radicular pain assuming that his symptoms are coming from the cervical spine. Thank you for allowing me to participate in your patients care. total time spent was 60 minutes in counseling ,coordination of plan, personal review of imaging, surgical decision making and subsequent plan Srinivas Renteria MD, PhD [facility] Trained Neurosurgeon Director, [facility] Coding Level of Care Code New Pt Level 5 (04103) Diagnoses Cervical spondylosis with radiculopathy M47.22
== END 2023-08-12 14:39 | disposition home or self-care (01) ==
PROVIDERS: PCP Internal Medicine; Visit Provider Neurological Surgery
DX: M47.22 Other spondylosis with radiculopathy, cervical region (principal)
CPT/HCPCS: 99205

== ENCOUNTER → 2023-08-12 12:55 | Outpatient (BNVA) | payer MEDICARE, OTHER, SELFPAY | PROVIDERS: PCP Internal Medicine; Visit Provider Neurological Surgery | DX: M47.22 Other spondylosis with radiculopathy, cervical region (principal) | CPT/HCPCS: 99202 ==

== ENCOUNTER 2023-09-11 06:05 | Outpatient (REF) | payer MEDICARE, OTHER, SELFPAY ==
[2023-09-11 06:28] LABS: MANUAL DIFF FLAG NO
[2023-09-11 07:53] LABS: Appearance Urine Clear; Color Urine Yellow; Glucose Urine UA Negative (Negative); Leukocyte Esterase Urine Negative (Negative); Nitrite Urine Negative (Negative); PH 5.5 (5.0-9.0); Specific Gravity - Urine 1.015 (1.005-1.025); Urine Blood Negative (Negative); Urine Ketones Negative (Negative); Urine Protein Negative (Neg-Trace)
[2023-09-11 07:58] LABS: Estimated Average Glucose 111 mg/dL; Hemoglobin A1c % 5.5 % (<6.0)
[2023-09-11 08:00] LABS: Basophils Percent Auto 0.6 % (0-2); Eosinophils Absolute Auto 0.2 X10*3/uL (0.0-0.4); Eosinophils Percent Auto 3.1 % (0-4); Hematocrit 43.9 % (42.0-52.0); Hemoglobin 14.9 g/dl (14.0-18.0); Imm Gran Abs Auto 0.01 X10*3/uL (0.00-0.03); Imm Gran Pct Auto 0.2 % (0.0-0.4); Lymphocytes Absolute Auto 1.4 X10*3/uL (1.2-4.9); Lymphocytes Percent Auto 26.7 % (20-40); Mean Corpuscular HGB Conc 33.9 g/dl (31.0-36.0); Mean Corpuscular Hemoglobin 32.9 pg (27.0-33.0); Mean Corpuscular Volume 96.9 fL (80.0-98.0); Mean Platelet Volume 11.4 fL (9.4-12.4); Monocytes Absolute Auto 0.4 X10*3/uL (0.1-1.2); Monocytes Percent Auto 8.2 % (2-11); Neutrophils Absolute Auto 3.2 x10*3/uL (2.0-8.3); Neutrophils Percent Auto 61.2 % (45-73); Platelet Count 164 X10*3/uL (160-400); Red Blood Count 4.53 X10*6/uL (4.60-5.80); Red Cell Distribution Width 12.5 % (11.0-16.0); White Blood Count 5.2 X10*3/uL (4.8-10.8)
[2023-09-11 08:43] LABS: Alanine Aminotransferase 27 U/L (0-40); Albumin Level 3.7 g/dL (3.5-5.0); Alkaline Phosphatase 58 U/L (39-117); Anion Gap 10 (12-20); Aspartate Amino Transferase 25 U/L (5-37); Bilirubin Total 0.6 mg/dL (0.0-1.0); Blood Urea Nitrogen 14 mg/dL (9-16); Calcium 8.8 mg/dL (8.4-10.2); Carbon Dioxide 27 mmol/L (22-29); Chloride 109 mmol/L (96-108); Estimated Glomerular Filt Rate > 60; Glucose Random 90 mg/dL (60-115); Potassium 3.5 mmol/L (3.3-5.1); Sodium 142 mmol/L (135-145); Total Protein 6.6 g/dL (6.5-8.0)
[2023-09-11 08:51] LABS: Thyroid Stimulating Hormone 0.83 uIU/mL (0.32-4.0)
[2023-09-11 08:56] LABS: Prostate Specific Antigen Scr 1.69 ng/mL (<0.05-4.0)
== END 2023-09-11 06:06 | disposition home or self-care (01) ==
LOC: HO.LAB 06:05
PROVIDERS: PCP Internal Medicine; Visit Provider Internal Medicine
DX: M54.12 Radiculopathy, cervical region (principal); M62.521 Muscle wasting and atrophy, not elsewhere classified, right upper arm; R73.01 Impaired fasting glucose; Z13.220 Encounter for screening for lipoid disorders; Z12.5 Encounter for screening for malignant neoplasm of prostate
CPT/HCPCS: 36415; 80053; 81003; 83036; 84153; 84443; 85025

== ENCOUNTER 2024-09-14 06:53 | Outpatient (REF) | payer MEDICARE, OTHER, SELFPAY ==
[2024-09-14 07:28] LABS: MANUAL DIFF FLAG NO
[2024-09-14 07:39] LABS: Basophils Percent Auto 0.5 % (0-2); Eosinophils Absolute Auto 0.2 X10*3/uL (0.0-0.4); Eosinophils Percent Auto 2.9 % (0-4); Hematocrit 46.3 % (42.0-52.0); Imm Gran Abs Auto 0.01 X10*3/uL (0.00-0.03); Imm Gran Pct Auto 0.2 % (0.0-0.4); Lymphocytes Absolute Auto 1.2 X10*3/uL (1.2-4.9); Lymphocytes Percent Auto 21.1 % (20-40); Mean Corpuscular HGB Conc 34.6 g/dl (31.0-36.0); Mean Corpuscular Hemoglobin 32.7 pg (27.0-33.0); Mean Corpuscular Volume 94.7 fL (80.0-98.0); Mean Platelet Volume 10.7 fL (9.4-12.4); Monocytes Absolute Auto 0.6 X10*3/uL (0.1-1.2); Monocytes Percent Auto 11.6 % (2-11); Neutrophils Absolute Auto 3.5 x10*3/uL (2.0-8.3); Neutrophils Percent Auto 63.7 % (45-73); Platelet Count 158 X10*3/uL (160-400); Red Blood Count 4.89 X10*6/uL (4.60-5.80); Red Cell Distribution Width 12.4 % (11.0-16.0); White Blood Count 5.5 X10*3/uL (4.8-10.8)
[2024-09-14 07:46] LABS: Appearance Urine Clear; Color Urine Dark Yellow; Glucose Urine UA Negative (Negative); Leukocyte Esterase Urine Negative (Negative); Nitrite Urine Negative (Negative); PH 5.5 (5.0-9.0); Specific Gravity - Urine 1.015 (1.005-1.025); Urine Blood Negative (Negative); Urine Ketones Negative (Negative); Urine Protein Negative (Neg-Trace)
[2024-09-14 07:53] LABS: Estimated Average Glucose 108 mg/dL; Hemoglobin A1C 140.6685 umol/L; Hemoglobin A1c % 5.4 % (<6.0); Total Hemoglobin (HGBA1C) 3975.0222 umol/L
[2024-09-14 08:11] LABS: Alanine Aminotransferase 22 U/L (0-40); Alkaline Phosphatase 83 U/L (39-117); Anion Gap 13 (12-20); Aspartate Amino Transferase 25 U/L (5-37); Bilirubin Total 0.9 mg/dL (0.0-1.0); Blood Urea Nitrogen 13 mg/dL (9-16); Calcium 9.3 mg/dL (8.4-10.2); Carbon Dioxide 26 mmol/L (22-29); Chloride 107 mmol/L (96-108); Cholesterol 149 mg/dL (<200); Estimated Glomerular Filt Rate > 60; Glucose Random 97 mg/dL (60-115); HDL Cholesterol 46 mg/dL (>40); LDL Cholesterol Calculated 82 mg/dL (<100); Potassium 3.7 mmol/L (3.3-5.1); Sodium 142 mmol/L (135-145); Total Protein 6.8 g/dL (6.5-8.0); Triglycerides 109 mg/dL (<150)
[2024-09-14 08:23] LABS: Prostate Specific Antigen Scr 2.32 ng/mL (<0.05-4.0)
[2024-09-14 08:31] LABS: Thyroid Stimulating Hormone 1.25 uIU/mL (0.32-4.0)
--- OUTSIDE RECORDS SUMMARY | 2024-09-14 22:42 | XMS_ITS | Data Portability ---
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 Pt had some upper trap compensation and difficulty moving the arm through full ROM but no significant symptoms. Plan: 2x a week for 6 week. Jamaican NMES w/ strengthening activities. [email or web address] Not available 07/19/2024 16:13:33 07/26/2024 07/26/2024 NMES parameters: 5/5 on/off, 50% duty cycle, 50BPS Assessment: Pt able to do all exercise with minimal issue. Pt had some upper trap compensation and difficulty moving the arm through full ROM but no significant symptoms. Plan: 2x a week for 6 week. [place] NMES w/ strengthening activities. [email or web address] Not available 07/28/2024 13:57:14 07/28/2024 07/28/2024 NMES parameters: 5/5 on/off, 50% duty cycle, 50BPS Assessment: Pt able to do all exercise with minimal issue. Pt had some upper trap compensation and difficulty moving the arm through full ROM but no significant symptoms. Plan: 2x a week for 6 week. [place] NMES w/ strengthening activities. Not available 07/31/2024 22:03:50 08/03/2024 08/03/2024 NMES parameters: 5/5 on/off, 50% duty cycle, 50BPS Assessment: Pt able to do all exercise without increase in symptoms. Pt noted some fatigue. Upper trap compensation still noted with movements into flexion and away from the body. Plan: 2x a week for 6 week. [place] NMES w/ strengthening activities. Not available 08/05/2024 16:01:05 08/23/2024 08/23/2024 NMES parameters: 5/5 on/off, 50% duty cycle, 50BPS Assessment: Pt able to do all exercise without increase in symptoms. Pt noted some fatigue. Reduced upper trap compensation noted today. Plan: 2x a week for 6 week. [place] NMES w/ strengthening activities. [email or web address] Not available 08/24/2024 09:29:18 Plan of Treatment Reminders Order Date Submit Date Provider Last Modified By Organization Details Last Modified Time Details Appointments PT ANY 30 2023 03:00P M ADI LUKE DPT Not available Not available Not available PT INITIAL EVAL 2024 03:00P M Savita Garcia, RESEARCH SCHOLAR Not available Not available Not available PT FOLLOW-U P 2024 03:00P M Savita Garcia, RESEARCH SCHOLAR Not available Not available Not available PT FOLLOW-U P 2024 03:00P M Savita Garcia, RESEARCH SCHOLAR Not available Not available Not available PT FOLLOW-U P 2024 03:00P M Savita Garcia, RESEARCH SCHOLAR Not available Not available Not available PT FOLLOW-U P 2024 03:00P M Savita Garcia, RESEARCH SCHOLAR Not available Not available Not available PT FOLLOW-U P 2024 03:00P M Savita Garcia, RESEARCH SCHOLAR Not available Not available Not available PT FOLLOW-U P 2024 03:00P M Savita Garcia, RESEARCH SCHOLAR Not available Not available Not available PT FOLLOW-U P 2024 03:00P M Savita Garcia, RESEARCH SCHOLAR Not available Not available Not available Lab None recorded . Referral None recorded . Procedures None recorded . Surgeries None recorded . Imaging None recorded . Medication Orders None recorded . Patient Targets Encounter Date Encounter Id Patient Goals Patient Target Last Modified By Organization Details Last Modified Time 07/19/2024 [id number] prison goal of Right Shoulder Strength -[id number] Not available Not available Not available long term care administrator goal of Right Shoulder Strength -[id number] Not available Not available Not available long term care administrator goal of Right Shoulder Strength -[id number] Not available Not available Not available 3 weeks of Sleeping -[id number] Not available Not available Not available 3 weeks of Overall ADL's NOTE Not available Not available Not available prison goal of Overall ADL's -[id number] Not available Not available Not available long term care administrator goal of Reaching NOTE Not available Not available Not available long term care administrator goal of Lifting -[id number] Not available Not available Not available 3 weeks of Pain NOTE Not available Not available Not available prison goal of Pain NOTE Not available Not available Not available 07/26/2024 [id number] prison goal of Right Shoulder Strength -[id number] Not available Not available Not available long term care administrator goal of Right Shoulder Strength -[id number] Not available Not available Not available long term care administrator goal of Right Shoulder Strength -[id number] Not available Not available Not available 3 weeks of Sleeping -026092 Not available Not available Not available 3 weeks of Overall ADL's NOTE Not available Not available Not available long term care administrator goal of Overall ADL's -[id number] Not available Not available Not available long term care administrator goal of Reaching NOTE Not available Not available Not available long term care administrator goal of Lifting -[id number] Not available Not available Not available 3 weeks of Pain NOTE Not available Not available Not available prison goal of Pain NOTE Not available Not available Not available 07/28/2024 [id number] long term care administrator goal of Right Shoulder Strength -[id number] Not available Not available Not available prison goal of Right Shoulder Strength -[id number] Not available Not available Not available long term care administrator goal of Right Shoulder Strength -[id number] Not available Not available Not available 3 weeks of Sleeping -[id number] Not available Not available Not available 3 weeks of Overall ADL's NOTE Not available Not available Not available long term care administrator goal of Overall ADL's -[id number] Not available Not available Not available prison goal of Reaching NOTE Not available Not available Not available prison goal of Lifting -046924 Not available Not available Not available 3 weeks of Pain NOTE Not available Not available Not available prison goal of Pain NOTE Not available Not available Not available 08/03/2024 [id number] prison goal of Right Shoulder Strength -[id number] Not available Not available Not available prison goal of Right Shoulder Strength -[id number] Not available Not available Not available long term care administrator goal of Right Shoulder Strength -[id number] Not available Not available Not available 3 weeks of Sleeping -252487 Not available Not available Not available 3 weeks of Overall ADL's NOTE Not available Not available Not available long term care administrator goal of Overall ADL's -[id number] Not available Not available Not available prison goal of Reaching NOTE Not available Not available Not available long term care administrator goal of Lifting -[id number] Not available Not available Not available 3 weeks of Pain NOTE Not available Not available Not available long term care administrator goal of Pain NOTE Not available Not available Not available 08/23/2024 [id number] prison goal of Right Shoulder Strength -399349 Not available Not available Not available long term care administrator goal of Right Shoulder Strength -[id number] Not available Not available Not available long term care administrator goal of Right Shoulder Strength -[id number] Not available Not available Not available 3 weeks of Sleeping -048170 Not available Not available Not available 3 weeks of Overall ADL's NOTE Not available Not available Not available prison goal of Overall ADL's -[id number] Not available Not available Not available prison goal of Reaching NOTE Not available Not available Not available long term care administrator goal of Lifting -[id number] Not available Not available Not available 3 weeks of Pain NOTE Not available Not available Not available long term care administrator goal of Pain NOTE Not available Not available Not available Patient InstructionsNo instructions recorded. Reason for Referral None Reported. Procedures Surgical History Date Name Laterality Status Provider Name and Address Organization Details Recorded Time 4 76901 Therapeutic Exercise (1:1) completed ADI LUKE DPT [address] [facility], [place], [address], [facility] 05/25/2024 22:30:29 4 15669 Therapeutic Exercise (1:1) completed ADI LUKE DPT [address] [facility], [place], [address], [facility] 05/15/2024 19:00:39 4 19631 Therapeutic Exercise (1:1) completed ADI LUKE DPT [address], [place], [address], [facility] 05/10/2024 14:13:34 4 32794 Therapeutic Exercise (1:1) completed ADI LUKE DPT [address], [place], [address], [facility] 05/06/2024 09:30:20 4 14857 Therapeutic Exercise (1:1) completed ADI LUKE, DPT [address], [place], [address], [facility] 04/29/2024 15:35:43 4 58944 Therapeutic Exercise (1:1) completed ADI LUKE, DPT [address], [place], [address], [facility] 04/26/2024 15:40:11 4 41600 Therapeutic Exercise (1:1) completed ADI LUKE, DPT [address], [place], [address], [facility] 04/24/2024 18:36:24 4 45636 Therapeutic Exercise (1:1) completed ADI LUKE, DPT [address], [place], [address], [facility] 04/20/2024 08:02:00 4 30068: Manual therapy completed ADI LUKE, DPT [address], [place], [address], [facility] 04/20/2024 08:02:14 4 78520 Therapeutic Exercise (1:1) completed ADI LUKE, DPT [address], [place], [address], [facility] 04/12/2024 16:54:43 4 01791 Therapeutic Exercise (1:1) completed ADI LUKE, DPT [address], [place], [address], [facility] 04/10/2024 21:14:32 4 88058 Therapeutic Exercise (1:1) completed ADI LUKE, DPT [address], [place], [address], [facility] 04/05/2024 18:44:20 4 73940 Therapeutic Exercise (1:1) completed ADI LUKE DPT [address], [place], [address], [facility] 04/03/2024 20:11:04 4 49122 Therapeutic Exercise (1:1) completed ADI LUKE DPT [address], [place], [address], [facility] 03/30/2024 08:23:10 4 21992 Therapeutic Exercise (1:1) completed ADI LUKE DPT [address], [place], [address], [facility] 03/27/2024 23:05:31 4 64144 Therapeutic Exercise (1:1) completed ADI LUKE DPT [address], [place], [address], [facility] 03/24/2024 07:44:55 4 61091 Therapeutic Exercise (1:1) completed ADI LUKE DPT [address], [place], [address], [facility] 03/17/2024 16:53:43 4 63785 Therapeutic Exercise (1:1) completed ADI LUKE DPT [address], [place], [address], [facility] 03/15/2024 21:42:53 4 75044 Therapeutic Exercise (1:1) completed ADI LUKE, DPT [address], [place], [address], [facility] 03/11/2024 15:23:42 4 76049 Therapeutic Exercise (1:1) completed ADI LUKE, DPT [address], [place], [address], [facility] 03/04/2024 11:54:05 4 87085 Therapeutic Exercise (1:1) completed ADI LUKE DPT [address], [place], [address], [facility] 03/03/2024 08:14:46 4 30844 Therapeutic Exercise (1:1) completed ADI LUKE DPT [address], [place], [address], [facility] 02/24/2024 13:47:11 4 59647 Therapeutic Exercise (1:1) completed ADI LUKE DPT [address], [place], [address], [facility] 02/23/2024 10:20:06 4 78614 Therapeutic Exercise (1:1) completed ADI LUKE DPT [address], [place], [address], [facility] 02/19/2024 12:42:15 4 27118: Low complexity PT Eval completed ADI LUKE DPT [address], [place], [address], [facility] 02/19/2024 12:42:20 4 G8419 BMI Outside Normal Parameters, F/U not Documented completed ADI LUKE DPT [address], [place], [address], [facility] 02/19/2024 12:45:35 4 G8427 Current Medication Documented completed ADI LUKE DPT [address], [place], [address], [facility] 02/19/2024 12:45:40 Imaging Results None recorded. Procedure Notes None recorded. Medical Equipment None Reported. Medications Name Sig Start Date Stop Date Status Note LastModified by Organization Details LastModified Time methocarbamol 750 mg tablet TAKE 1 TABLET BY MOUTH 3 TIMES A DAY NEEDED FOR POST-OP SPASMS active Not Available Not Available No t Available gabapentin 100 mg capsule active Not Available Not Available N ot Available Vitals None Recorded Social History None recorded. Functional Status None recorded. Mental Status None recorded. Family History Nothing Reported. Medical History No medical history recorded. Past Encounters Encounter ID Performer Location Encounter Start Date Encounter Closed Date Diagnosis/Indication Diagnosis SNOMED-CT Code Diagnosis ICD10 Code [id number] [facility] [address] [place] [address] 02/17/2024 15:21:04 02/19/2024 07:26:01 Muscle atrophy 25830351 M62.50 [id number] [facility] [address] [place] [address] 02/22/2024 14:19:17 02/22/2024 16:06:17 Muscle atrophy 12972470 M62.50 [id number] [facility] [address] [place] [address] 02/24/2024 11:58:38 02/24/2024 13:59:25 Muscle atrophy 62566991 M62.50 [id number] [facility] [address] [place] [address] 03/02/2024 14:29:24 03/02/2024 15:41:03 Muscle atrophy 44447879 M62.50 [id number] ADI LUKE DPT [facility] [address] [place] [address] 03/04/2024 08:21:22 03/04/2024 09:38:32 Muscle atrophy 69575917 M62.50 [id number] ADI LUKE DPT [facility] [address] [place] [address] 03/11/2024 13:24:23 03/11/2024 16:07:03 Muscle atrophy 53503583 M62.50 [id number] ADI LUKE DPT [facility] [address] [place] [address] 03/14/2024 14:53:25 03/14/2024 15:59:36 Muscle atrophy 94799559 M62.50 [id number] ADI LUKE DPT [facility] [address] [place] [address] 03/16/2024 14:51:18 03/16/2024 16:02:02 Muscle atrophy 05145063 M62.50 [id number] ADI LUKE, DPT [facility] [address] [place] [address] 03/22/2024 14:48:02 03/22/2024 16:45:17 Muscle atrophy 66986333 M62.50 [id number] ADI LUKE, DPT [facility] [address] [place] [address] 03/25/2024 14:54:34 03/25/2024 15:40:00 Muscle atrophy 83023355 M62.50 [id number] ADI LUEK, DPT [facility] [address] [place] [address] 03/29/2024 15:23:01 03/29/2024 16:36:21 Muscle atrophy 46164315 M62.50 [id number] ADI LUKE, DPT [facility] [address] [place] [address] 04/01/2024 14:21:15 04/01/2024 16:11:49 Muscle atrophy 31367083 M62.50 [id number] ADI LUKE, DPT [facility] [address] [place] [address] 04/05/2024 15:21:15 04/05/2024 17:03:04 Muscle atrophy 74017528 M62.50 [id number] ADI LUKE, DPT [facility] [address] [place] [address] 04/08/2024 13:50:28 04/08/2024 15:15:12 Muscle atrophy 60222835 M62.50 [id number] ADI LUKE, DPT [facility] [address] [place] [address] 04/12/2024 14:53:04 04/12/2024 17:21:48 Muscle atrophy 41116393 M62.50 [id number] ADI LUKE, DPT [facility] [address] [place] [address] 04/19/2024 14:57:12 04/19/2024 16:43:31 Muscle atrophy 33395671 M62.50 [id number] ADI LUKE, DPT [facility] [address], [place] [address] 04/22/2024 13:56:28 04/22/2024 15:37:05 Muscle atrophy 83499697 M62.50 [id number] ADI LUKE, DPT [facility] [address], [place] [address] 04/26/2024 14:52:05 04/26/2024 15:46:02 Muscle atrophy 42160117 M62.50 [id number] ADI LUKE, DPT [facility] [address], [place] [address] 04/29/2024 13:51:22 04/29/2024 15:25:59 Muscle atrophy 02628459 M62.50 [id number] ADI LUKE, DPT [facility] [address], [place] [address] 05/05/2024 15:51:20 05/05/2024 17:31:59 Muscle atrophy 55789140 M62.50 [id number] ADI LUKE, DPT [facility] [address], [place] [address] 05/10/2024 12:17:37 05/10/2024 13:34:40 Muscle atrophy 04019901 M62.50 [id number] ADI LUKE, DPT [facility] [address], [place] [address] 05/13/2024 14:21:35 05/13/2024 15:26:24 Muscle atrophy 45992026 M62.50 [id number] ADI LUKE, DPT [facility] [address], [place] [address] 05/24/2024 11:21:08 05/24/2024 12:35:32 Muscle atrophy 94641932 M62.50 [id number] ADI LUKE, DPT [facility] [address], [place] [address] 05/27/2024 14:28:33 05/27/2024 15:59:03 Muscle atrophy 78804195 M62.50 [id number] ADI LUKE, DPT [facility] [address], [place] [address] 05/31/2024 10:39:06 05/31/2024 11:38:07 Muscle atrophy 28587167 M62.50 [id number] ADI LUKE, DPT [facility] [address], [place] [address] 06/07/2024 10:23:57 06/07/2024 15:35:33 Muscle atrophy 70838589 M62.50 [id number] ADI LUKE, DPT [facility] [address], [place] [address] 06/10/2024 12:49:32 06/10/2024 14:11:12 Muscle atrophy 10753723 M62.50 [id number] ADI LUKE, DPT [facility] [address], [place] [address] 06/21/2024 14:58:11 06/21/2024 16:18:26 Muscle atrophy 68515396 M62.50 [id number] ADI LUKE, DPT [facility] [address], [place] [address] 06/24/2024 15:22:18 06/24/2024 16:07:12 Muscle atrophy 63061832 M62.50 [id number] ADI LUKE, DPT [facility] [address], [place] [address] 06/28/2024 11:56:06 06/28/2024 13:21:44 Muscle atrophy 07065273 M62.50 [id number] ADI LUKE, DPT [facility] [address], [place] [address] 07/01/2024 13:48:59 07/01/2024 15:05:45 Muscle atrophy 70520854 M62.50 [id number] ADI LUKE, DPT [facility] [address], [place] [address] 07/04/2024 14:50:13 07/04/2024 16:00:31 Muscle atrophy 39259686 M62.50 [id number] ADI LUKE, DPT [facility] [address], [place] [address] 07/06/2024 14:54:15 07/06/2024 15:44:19 Muscle atrophy 39338875 M62.50 [id number] ADI LUKE, DPT [facility] [address], [place] [address] 07/13/2024 14:56:46 07/13/2024 15:57:58 Muscle atrophy 60684193 M62.50 [id number] ADI LUKE, [facility] [address] [place] [address] 07/19/2024 14:53:30 07/19/2024 16:22:51 Muscle atrophy 86731692 M62.50 [id number] ADI LUKE DPT [facility] [address] [place] [address] 07/26/2024 14:53:11 07/26/2024 16:06:19 Muscle atrophy 90204875 M62.50 [id number] ADI LUKE DPT [facility] [address] [place] [address] 07/28/2024 14:52:01 07/28/2024 16:31:47 Muscle atrophy 94831479 M62.50 [id number] [facility] [address] [place] [address] 08/03/2024 14:50:13 08/03/2024 15:44:28 Muscle atrophy 70247723 M62.50 [id number] [facility] [address] [place] [address] 08/23/2024 14:53:35 08/23/2024 15:58:43 Muscle atrophy 61263069 M62.50 Health Concerns Section Related Observation LastModified by Organization Detai ls LastModified Time None Recorded Concern Status LastModified by Organization Details LastModified Time None Recorded Advance Directives Directive None Recorded Payers Encounter Date Sequence Insurance Name Policy Number Policy [place] Covered Member ID [place] Member ID Guarantor Name 07/19/2024 2 [facility] [id number] Mehdi Vincent [id number] Mehdi Vincent 07/19/2024 1 [place] [employer] Mehdi Vincent [id number] Mehdi Vincent 07/26/2024 2 [facility] [id number] Mehdi Vincent [id number] Mehdi Vincent 07/26/2024 1 [place] [employer] Mehdi Vincent [id number] Mehdi Vincent 07/28/2024 2 [facility] [id number] Mehdi Duranczak [id number] Mehdi Duranczak 07/28/2024 1 [place] [facility] Mehdi Vincent [id number] Mehdi Vincent 08/03/2024 2 [facility] [id number] Mehdi Vincent [id number] Mehdi Duranczak 08/03/2024 1 [place] [facility] Mehdi Vincent [id number] Mehdi Vincent 08/23/2024 2 [facility] [id number] Mehdi Vincent [id number] Mehdi Duranczak 08/23/2024 1 [place] [facility] Mehdi Vincent [id number] Mehdi Duranczak Notes Date Note Type Note Provider Name and Address Organization Details Recorded Time 07/19/2024 text/html Pt reports that he is doing well today. Pt notes that he was able to lift his arm to above shoulder height to open his garage door over the weekend without issue. ADI LUKE DPT [address], [place], [address], [facility] 07/19/2024 16:13:47 07/26/2024 text/html Pt reports that he is doing well overall. Pt notes that he feels that doing ER to a 90-90 position is getting easier. Pt says that he didn't have any soreness following his last visit. ADI LUKE DPT [address], [place], [address], [facility] 07/28/2024 13:58:25 07/28/2024 text/html Pt reprots that he continues to do well and that he still sees some progress. Pt says that things like reaching overhead continue to improve. ADI LUKE DPT [address], [place], [address], [facility] 07/31/2024 22:05:00 08/03/2024 text/html Pt reports that he is doing well today but is having an arthritis day which has caused some achiness. Pt says that he continues to do his exercises in the gym and feels that he continues to make small gains. ADI LUKE, CAROLYN [address], [place], [address], [facility] 08/05/2024 16:01:59 08/23/2024 text/html Pt reports that he is doing well overall today and has noticed some improvements over the last couple weeks. Pt says that he has been able to raise his arm to shoulder level with reduced effort and hold it there. Pt also says that he has been noticing less shrugging during activities like that. ADI LUKE DPT [address], [place], [address], [facility] 08/24/2024 09:29:37
--- OUTSIDE RECORDS SUMMARY | 2024-09-14 22:42 | XMS_ITS | Continuity of Care Document ---
Author Organization [place] - [facility] [place] [facility] Address [address] [place] [address] Care Team Providers Care Brake Specialist Name Role Phone ELIZABETH WESLEY Referring Provider Assessment Encounter Date Assessment Date Assessment LastModified by Organization Details LastModified Time 08/23/2024 08/23/2024 NMES parameters: 5/5 on/off, 50% duty cycle, 50BPS Assessment: Pt able to do all exercise without increase in symptoms. Pt noted some fatigue. Reduced upper trap compensation noted today. Plan: 2x a week for 6 week. Hong Konger NMES w/ strengthening activities. [email or web address] Not available 08/24/2024 09:29:18 Plan of Treatment Reminders Order Date Submit Date Provider Last Modified By Organization Details Last Modified Time Details Appointments PT ANY 30 2023 03:00P M ADI LUKE, DPT Not available Not available Not available PT INITIAL EVAL 2024 03:00P M Savita Garcia, WASTE WATER OPERATOR Not available Not available Not available PT FOLLOW-U P 2024 03:00P M Savita Garcia, WASTE WATER OPERATOR Not available Not available Not available PT FOLLOW-U P 2024 03:00P M Savita Garcia, WASTE WATER OPERATOR Not available Not available Not available PT FOLLOW-U P 2024 03:00P M Savita Garcia, WASTE WATER OPERATOR Not available Not available Not available PT FOLLOW-U P 2024 03:00P M Savita Garcia, WASTE WATER OPERATOR Not available Not available Not available PT FOLLOW-U P 2024 03:00P M Savita Garcia, WASTE WATER OPERATOR Not available Not available Not available PT FOLLOW-U P 2024 03:00P M Savita Garcia, WASTE WATER OPERATOR Not available Not available Not available PT FOLLOW-U P 2024 03:00P M Savita Garcia, WASTE WATER OPERATOR Not available Not available Not available Lab None recorded . Referral None recorded . Procedures None recorded . Surgeries None recorded . Imaging None recorded . Medication Orders None recorded . Patient Targets Encounter Date Encounter Id Patient Goals Patient Target Last Modified By Organization Details Last Modified Time 08/23/2024 [id number] alf goal of Right Shoulder Strength -[id number] Not available Not available Not available terminal gauger goal of Right Shoulder Strength -[id number] Not available Not available Not available alf goal of Right Shoulder Strength -[id number] Not available Not available Not available 3 weeks of Sleeping -408232 Not available Not available Not available 3 weeks of Overall ADL's NOTE Not available Not available Not available terminal gauger goal of Overall ADL's -[id number] Not available Not available Not available terminal gauger goal of Reaching NOTE Not available Not available Not available alf goal of Lifting -[id number] Not available Not available Not available 3 weeks of Pain NOTE Not available Not available Not available terminal gauger goal of Pain NOTE Not available Not available Not available Patient InstructionsNo instructions recorded. Reason for Referral None Reported. Procedures Surgical History Date Name Laterality Status Provider Name and Address Organization Details Recorded Time 4 43819 Therapeutic Exercise (1:1) completed ADI LUKE DPT [address] [facility], [place], [address], [facility] 05/25/2024 22:30:29 4 09205 Therapeutic Exercise (1:1) completed ADI LUKE DPT [address] [facility], [place], [address], [facility] 05/15/2024 19:00:39 4 28299 Therapeutic Exercise (1:1) completed ADI LUKE DPT [address], [place], [address], [facility] 05/10/2024 14:13:34 4 97273 Therapeutic Exercise (1:1) completed ADI LUKE DPT [address], [place], [address], [facility] 05/06/2024 09:30:20 4 83507 Therapeutic Exercise (1:1) completed ADI LUKE, DPT [address], [place], [address], [facility] 04/29/2024 15:35:43 4 95091 Therapeutic Exercise (1:1) completed ADI LUKE, DPT [address], [place], [address], [facility] 04/26/2024 15:40:11 4 05158 Therapeutic Exercise (1:1) completed ADI LUKE, DPT [address], [place], [address], [facility] 04/24/2024 18:36:24 4 40967 Therapeutic Exercise (1:1) completed ADI LUKE, DPT [address], [place], [address], [facility] 04/20/2024 08:02:00 4 80035: Manual therapy completed ADI LUKE, DPT [address], [place], [address], [facility] 04/20/2024 08:02:14 4 01091 Therapeutic Exercise (1:1) completed ADI LUKE, DPT [address], [place], [address], [facility] 04/12/2024 16:54:43 4 90707 Therapeutic Exercise (1:1) completed ADI LUKE, DPT [address], [place], [address], [facility] 04/10/2024 21:14:32 4 18109 Therapeutic Exercise (1:1) completed ADI LUKE, DPT [address], [place], [address], [facility] 04/05/2024 18:44:20 4 91304 Therapeutic Exercise (1:1) completed ADI MARLY, DPT [address], [place], [address], [facility] 04/03/2024 20:11:04 4 27415 Therapeutic Exercise (1:1) completed ADI MARLY, DPT [address], [place], [address], [facility] 03/30/2024 08:23:10 4 13056 Therapeutic Exercise (1:1) completed ADI MARLY, DPT [address], [place], [address], [facility] 03/27/2024 23:05:31 4 37191 Therapeutic Exercise (1:1) completed ADI VALDOVINOSE, DPT [address], [place], [address], [facility] 03/24/2024 07:44:55 4 38026 Therapeutic Exercise (1:1) completed ADI VALDOVINOSE, DPT [address], [place], [address], [facility] 03/17/2024 16:53:43 4 47702 Therapeutic Exercise (1:1) completed ADI LUKE, DPT [address], [place], [address], [facility] 03/15/2024 21:42:53 4 17318 Therapeutic Exercise (1:1) completed ADI MARLY, DPT [address], [place], [address], [facility] 03/11/2024 15:23:42 4 69336 Therapeutic Exercise (1:1) completed ADI MARLY, DPT [address], [place], [address], [facility] 03/04/2024 11:54:05 4 65585 Therapeutic Exercise (1:1) completed ADI LUKE, DPT [address] [facility], [place], [address], [facility] 03/03/2024 08:14:46 4 21963 Therapeutic Exercise (1:1) completed ADI LUKE, DPT [address], [place], [address], [facility] 02/24/2024 13:47:11 4 30131 Therapeutic Exercise (1:1) completed ADI LUKE, DPT [address], [place], [address], [facility] 02/23/2024 10:20:06 4 20782 Therapeutic Exercise (1:1) completed ADI LUKE DPT [address], [place], [address], [facility] 02/19/2024 12:42:15 4 30397: Low complexity PT Eval completed ADI LUKE DPT [address], [place], [address], [facility] 02/19/2024 12:42:20 4 G8419 BMI Outside Normal Parameters, F/U not Documented completed ADI LUKE DPT [address], [place], [address], [facility] 02/19/2024 12:45:35 4 G8427 Current Medication Documented completed ADI LUKE, DPT [address], [place], [address], [facility] 02/19/2024 12:45:40 Imaging Results None recorded. Procedure [...] Diagnosis/Indication Diagnosis SNOMED-CT Code Diagnosis ICD10 Code [id number] ADI CAROLYN LUKE [facility] [address] [place] [address] 07/26/2024 14:53:11 07/26/2024 16:06:19 Muscle atrophy 73017385 M62.50 [id number] ROSEY CURRIET [facility] [address] [place] [address] 07/28/2024 14:52:01 07/28/2024 16:31:47 Muscle atrophy 34858108 M62.50 [id number] ROSEY CURRIET [facility] [address] [place] [address] 08/03/2024 14:50:13 08/03/2024 15:44:28 Muscle atrophy 96592944 M62.50 [id number] ROSEY CURRIET [facility] [address] [place] [address] 08/23/2024 14:53:35 08/23/2024 15:58:43 Muscle atrophy 37780436 M62.50 Health Concerns Section Related Observation LastModified by Organization Detai ls LastModified Time None Recorded Concern Status LastModified by Organization Details LastModified Time None Recorded Payers Encounter Date Sequence Insurance Name Policy Number Policy Solano Covered Member ID Solano Member ID Guarantor Name 08/23/2024 2 [facility] [id number] Mehdi Vincent [id number] Mehdi Vincent 08/23/2024 1 MEDICARE [place]: [employer] Mehdi Vincent [id number] Mehdi Vincent Notes Date Note Type Note Provider Name and Address Organization Details Recorded Time 08/23/2024 text/html Pt reports that he is doing well overall today and has noticed some improvements over the last couple weeks. Pt says that he has been able to raise his arm to shoulder level with reduced effort and hold it there. Pt also says that he has been noticing less shrugging during activities like that. AID LUKE, DPT [address], [place], [address], [facility] 08/24/2024 09:29:37
--- OUTSIDE RECORDS SUMMARY | 2024-09-14 22:43 | XMS_ITS | Continuity of Care Document ---
Author Organization [place] - [facility] Address [address] [place] [address] Care Team Providers Care Manager Food Beverage Name Role Phone ELIZABETH WESLEY Referring Provider [...] Plan: 2x a week for 6 week. [place] NMES w/ strengthening activities. Not available 07/19/2024 16:13:33 Plan of Treatment Reminders Order Date Submit Date Provider Last Modified By Organization Details Last Modified Time Details Appointments PT ANY 30 2023 03:00P M ADI LUKE DPT Not available Not available Not available PT INITIAL EVAL 2024 03:00P M Savita Garcia, MANAGER OPERATIONS AND PROCUREMENT Not available Not available Not available PT FOLLOW-U P 2024 03:00P M Savita Garcia, MANAGER OPERATIONS AND PROCUREMENT Not available Not available Not available PT FOLLOW-U P 2024 03:00P M Savita Garcia, MANAGER OPERATIONS AND PROCUREMENT Not available Not available Not available PT FOLLOW-U P 2024 03:00P M Savita Garcia, MANAGER OPERATIONS AND PROCUREMENT Not available Not available Not available PT FOLLOW-U P 2024 03:00P M Savita Garcia, MANAGER OPERATIONS AND PROCUREMENT Not available Not available Not available PT FOLLOW-U P 2024 03:00P M Savita Garcia, MANAGER OPERATIONS AND PROCUREMENT Not available Not available Not available PT FOLLOW-U P 2024 03:00P M Savita Radha, MANAGER OPERATIONS AND PROCUREMENT Not available Not available Not available PT FOLLOW-U P 2024 03:00P M Savita Radha, MANAGER OPERATIONS AND PROCUREMENT Not available Not available Not available Lab None recorded . Referral None recorded . Procedures None recorded . Surgeries None recorded . Imaging None recorded . Medication Orders None recorded . Patient Targets Encounter Date Encounter Id Patient Goals Patient Target Last Modified By Organization Details Last Modified Time 07/19/2024 [id number] USP goal of Right Shoulder Strength -[id number] Not available Not available Not available USP goal of Right Shoulder Strength -[id number] Not available Not available Not available terminal make up operator goal of Right Shoulder Strength -063274 Not available Not available Not available 3 weeks of Sleeping -957815 Not available Not available Not available 3 weeks of Overall ADL's NOTE Not available Not available Not available USP goal of Overall ADL's -[id number] Not available Not available Not available terminal make up operator goal of Reaching NOTE Not available Not available Not available USP goal of Lifting -[id number] Not available Not available Not available 3 weeks of Pain NOTE Not available Not available Not available USP goal of Pain NOTE Not available Not available Not available Patient InstructionsNo instructions recorded. Reason for Referral None Reported. Procedures Surgical History Date Name Laterality Status Provider Name and Address Organization Details Recorded Time 4 58916 Therapeutic Exercise (1:1) completed ADI LUKE DPT [address] [facility], [place], [address], [facility] 05/25/2024 22:30:29 4 05031 Therapeutic Exercise (1:1) completed ADI LUKE DPT [address], [place], [address], [facility] 05/15/2024 19:00:39 4 45148 Therapeutic Exercise (1:1) completed ROSEY CURRIET [address], [place], [address], [facility] 05/10/2024 14:13:34 4 69894 Therapeutic Exercise (1:1) completed ADI LUKE DPT [address], [place], [address], [facility] 05/06/2024 09:30:20 4 47374 Therapeutic Exercise (1:1) completed ADI LUKE, DPT [address], [place], [address], [facility] 04/29/2024 15:35:43 4 08261 Therapeutic Exercise (1:1) completed ADI LUKE, DPT [address], [place], [address], [facility] 04/26/2024 15:40:11 4 93159 Therapeutic Exercise (1:1) completed ADI LUKE, DPT [address], [place], [address], [facility] 04/24/2024 18:36:24 4 25826 Therapeutic Exercise (1:1) completed ADI LUKE, DPT [address], [place], [address], [facility] 04/20/2024 08:02:00 4 03724: Manual therapy completed ADI LUKE, DPT [address], [place], [address], [facility] 04/20/2024 08:02:14 4 54761 Therapeutic Exercise (1:1) completed ADI LUKE, DPT [address], [place], [address], [facility] 04/12/2024 16:54:43 4 21896 Therapeutic Exercise (1:1) completed ADI LUKE, DPT [address], [place], [address], [facility] 04/10/2024 21:14:32 4 11190 Therapeutic Exercise (1:1) completed ADI LUKE, DPT [address], [place], [address], [facility] 04/05/2024 18:44:20 4 22971 Therapeutic Exercise (1:1) completed ADI LUKE, DPT [address], [place], [address], [facility] 04/03/2024 20:11:04 4 74389 Therapeutic Exercise (1:1) completed ADI LUKE, DPT [address], [place], [address], [facility] 03/30/2024 08:23:10 4 15140 Therapeutic Exercise (1:1) completed ADI LUKE, DPT [address], [place], [address], [facility] 03/27/2024 23:05:31 4 19361 Therapeutic Exercise (1:1) completed ADI LUKE, DPT [address], [place], [address], [facility] 03/24/2024 07:44:55 4 31503 Therapeutic Exercise (1:1) completed ADI LUKE, DPT [address], [place], [address], [facility] 03/17/2024 16:53:43 4 90700 Therapeutic Exercise (1:1) completed ADI LUKE, DPT [address], [place], [address], [facility] 03/15/2024 21:42:53 4 04172 Therapeutic Exercise (1:1) completed ADI LUKE, DPT [address], [place], [address], [facility] 03/11/2024 15:23:42 4 06412 Therapeutic Exercise (1:1) completed ADI LUKE, DPT [address], [place], [address], [facility] 03/04/2024 11:54:05 4 37863 Therapeutic Exercise (1:1) completed ADI LUKE DPT [address], [place], [address], [facility] 03/03/2024 08:14:46 4 08689 Therapeutic Exercise (1:1) completed ADI LUKE DPT [address], [place], [address], [facility] 02/24/2024 13:47:11 4 02819 Therapeutic Exercise (1:1) completed ADI LUKE DPT [address], [place], [address], [facility] 02/23/2024 10:20:06 4 37875 Therapeutic Exercise (1:1) completed ADI LUKE DPT [address], [place], [address], [facility] 02/19/2024 12:42:15 4 28500: Low complexity PT Eval completed ADI LUKE DPT [address], [place], [address], [facility] 02/19/2024 12:42:20 4 G8419 BMI Outside Normal Parameters, F/U not Documented completed ADI LUKE DPT [address], [place], [address], [facility] 02/19/2024 12:45:35 4 G8427 Current Medication Documented completed ADI LUKE DPT [address], [place], [address], [facility] 02/19/2024 12:45:40 Imaging Results [...] Diagnosis/Indication Diagnosis SNOMED-CT Code Diagnosis ICD10 Code [id number] [facility] CURRI[facility] [address] [place] [address] 06/21/2024 14:58:11 06/21/2024 16:18:26 Muscle atrophy [id number] M62.50 [id number] ADI LUKE DPT [facility] [address] [place] [address] 06/24/2024 15:22:18 06/24/2024 16:07:12 Muscle atrophy 31320462 M62.50 [id number] ROSEY CURRIET [facility] [address] [place] [address] 06/28/2024 11:56:06 06/28/2024 13:21:44 Muscle atrophy 06142660 M62.50 [id number] ROSEY CURRIET [facility] [address] [place] [address] 07/01/2024 13:48:59 07/01/2024 15:05:45 Muscle atrophy 18263738 M62.50 [id number] ADI LUKE DPT [facility] [address] [place] [address] 07/04/2024 14:50:13 07/04/2024 16:00:31 Muscle atrophy 55504217 M62.50 [id number] ADI LUKE DPT [facility] [address] [place] [address] 07/06/2024 14:54:15 07/06/2024 15:44:19 Muscle atrophy 51543519 M62.50 [id number] ADI LUKE DPT [facility] [address] [place] [address] 07/13/2024 14:56:46 07/13/2024 15:57:58 Muscle atrophy 22247200 M62.50 [id number] ADI LUKE DPT [facility] [address] [place] [address] 07/19/2024 14:53:30 07/19/2024 16:22:51 Muscle atrophy 16792530 M62.50 Health Concerns Section Related Observation LastModified by Organization Detai ls LastModified Time None Recorded Concern Status LastModified by Organization Details LastModified Time None Recorded Payers Encounter Date Sequence Insurance Name Policy Number Policy Solano Covered Member ID Solano Member ID Guarantor Name 07/19/2024 2 [facility] [id number] Mehdi Vincent [id number] Mehdi Vincent 07/19/2024 1 MEDICARE [place]: [employer] Mehdi Vincent [id number] Mehdi Vincent Notes Date Note Type Note Provider Name and Address Organization Details Recorded Time 07/19/2024 text/html Pt reports that he is doing well today. Pt notes that he was able to lift his arm to above shoulder height to open his garage door over the weekend without issue. DAI LUKE, DPT [address], [place], [address], [facility] 07/19/2024 16:13:47
--- OUTSIDE RECORDS SUMMARY | 2024-09-14 22:43 | XMS_ITS | Continuity of Care Document ---
Author Organization [place] - [facility] [place] [facility] Address [address] [place] [address] Care Team Providers Care Watchstander Name Role Phone ELIZABETH WESLEY Referring Provider Assessment Encounter Date Assessment Date Assessment LastModified by Organization Details LastModified Time 08/03/2024 08/03/2024 NMES parameters: 5/5 on/off, 50% duty cycle, 50BPS Assessment: Pt able to do all exercise without increase in symptoms. Pt noted some fatigue. Upper trap compensation still noted with movements into flexion and away from the body. Plan: 2x a week for 6 week. Ethiopian NMES w/ strengthening activities. [email or web address] Not available 08/05/2024 16:01:05 Plan of Treatment Reminders Order Date Submit Date Provider Last Modified By Organization Details Last Modified Time Details Appointments PT ANY 30 2023 03:00P M ADI LUKE, DPT Not available Not available Not available PT INITIAL EVAL 2024 03:00P M Savita Garcia, CONSTRUCTION CRAFT LABORER Not available Not available Not available PT FOLLOW-U P 2024 03:00P M Savita Garcia, CONSTRUCTION CRAFT LABORER Not available Not available Not available PT FOLLOW-U P 2024 03:00P M Savita Garcia, CONSTRUCTION CRAFT LABORER Not available Not available Not available PT FOLLOW-U P 2024 03:00P M Savita Garcia, CONSTRUCTION CRAFT LABORER Not available Not available Not available PT FOLLOW-U P 2024 03:00P M Savita Garcia, CONSTRUCTION CRAFT LABORER Not available Not available Not available PT FOLLOW-U P 2024 03:00P M Savita Garcia, CONSTRUCTION CRAFT LABORER Not available Not available Not available PT FOLLOW-U P 2024 03:00P M Savita Lombardoadamarismichelle, CONSTRUCTION CRAFT LABORER Not available Not available Not available PT FOLLOW-U P 2024 03:00P M Savita Radha, CONSTRUCTION CRAFT LABORER Not available Not available Not available Lab None recorded . Referral None recorded . Procedures None recorded . Surgeries None recorded . Imaging None recorded . Medication Orders None recorded . Patient Targets Encounter Date Encounter Id Patient Goals Patient Target Last Modified By Organization Details Last Modified Time 08/03/2024 [id number] local intermodal truck driver goal of Right Shoulder Strength -[id number] Not available Not available Not available local intermodal truck driver goal of Right Shoulder Strength -[id number] Not available Not available Not available assisted goal of Right Shoulder Strength -[id number] Not available Not available Not available 3 weeks of Sleeping -175569 Not available Not available Not available 3 weeks of Overall ADL's NOTE Not available Not available Not available local intermodal truck driver goal of Overall ADL's -[id number] Not available Not available Not available assisted goal of Reaching NOTE Not available Not available Not available assisted goal of Lifting -[id number] Not available Not available Not available 3 weeks of Pain NOTE Not available Not available Not available local intermodal truck driver goal of Pain NOTE Not available Not available Not available Patient InstructionsNo instructions recorded. Reason for Referral None Reported. Procedures Surgical History Date Name Laterality Status Provider Name and Address Organization Details Recorded Time 4 53495 Therapeutic Exercise (1:1) completed ADI LUKE DPT [address] [place], [place], [address], [facility] 05/25/2024 22:30:29 4 76823 Therapeutic Exercise (1:1) completed ADI LUKE DPT [address] [place], [place], [address], [facility] 05/15/2024 19:00:39 4 25653 Therapeutic Exercise (1:1) completed ADI LUKE DPT [address], [place], [address], [facility] 05/10/2024 14:13:34 4 13977 Therapeutic Exercise (1:1) completed ADI LUKE DPT [address], [place], [address], [facility] 05/06/2024 09:30:20 4 93857 Therapeutic Exercise (1:1) completed ADI LUKE, DPT [address], [place], [address], [facility] 04/29/2024 15:35:43 4 19005 Therapeutic Exercise (1:1) completed ADI LUKE, DPT [address], [place], [address], [facility] 04/26/2024 15:40:11 4 37919 Therapeutic Exercise (1:1) completed ADI LUKE, DPT [address], [place], [address], [facility] 04/24/2024 18:36:24 4 33112 Therapeutic Exercise (1:1) completed ADI LUKE, DPT [address], [place], [address], [facility] 04/20/2024 08:02:00 4 17865: Manual therapy completed ADI LUKE, DPT [address], [place], [address], [facility] 04/20/2024 08:02:14 4 05331 Therapeutic Exercise (1:1) completed ADI LUKE, DPT [address], [place], [address], [facility] 04/12/2024 16:54:43 4 13473 Therapeutic Exercise (1:1) completed ADI LUKE, DPT [address], [place], [address], [facility] 04/10/2024 21:14:32 4 84752 Therapeutic Exercise (1:1) completed ADI LUKE, DPT [address], [place], [address], [facility] 04/05/2024 18:44:20 4 63007 Therapeutic Exercise (1:1) completed ADI LUKE DPT [address], [place], [address], [facility] 04/03/2024 20:11:04 4 59001 Therapeutic Exercise (1:1) completed ADI LUKE, DPT [address], [place], [address], [facility] 03/30/2024 08:23:10 4 41695 Therapeutic Exercise (1:1) completed ADI LUKE DPT [address], [place], [address], [facility] 03/27/2024 23:05:31 4 19937 Therapeutic Exercise (1:1) completed ADI LUKE DPT [address], [place], [address], [facility] 03/24/2024 07:44:55 4 01489 Therapeutic Exercise (1:1) completed ADI LUKE DPT [address], [place], [address], [facility] 03/17/2024 16:53:43 4 07104 Therapeutic Exercise (1:1) completed ADI LUKE DPT [address], [place], [address], [facility] 03/15/2024 21:42:53 4 42489 Therapeutic Exercise (1:1) completed ADI LUKE, DPT [address], [place], [address], [facility] 03/11/2024 15:23:42 4 62152 Therapeutic Exercise (1:1) completed ADI LUKE, DPT [address], [place], [address], [facility] 03/04/2024 11:54:05 4 31744 Therapeutic Exercise (1:1) completed ADI LUKE DPT [address], [place], [address], [facility] 03/03/2024 08:14:46 4 01481 Therapeutic Exercise (1:1) completed ADI LUKE DPT [address], [place], [address], [facility] 02/24/2024 13:47:11 4 74790 Therapeutic Exercise (1:1) completed ADI LUKE DPT [address], [place], [address], [facility] 02/23/2024 10:20:06 4 98142 Therapeutic Exercise (1:1) completed ADI LUKE DPT [address], [place], [address], [facility] 02/19/2024 12:42:15 4 68512: Low complexity PT Eval completed ADI LUKE DPT [address], [place], [address], [facility] 02/19/2024 12:42:20 4 G8419 BMI Outside Normal Parameters, F/U not Documented completed ADI LUKE DPT [address], [place], [address], [facility] 02/19/2024 12:45:35 4 G8427 Current Medication Documented completed ADI LUKE DPT [address], [place], [address], [facility] 02/19/2024 12:45:40 Imaging [...] Diagnosis/Indication Diagnosis SNOMED-CT Code Diagnosis ICD10 Code [id number] ADI BANDATAINE ROSEYT [facility] [address] [place] [address] 07/04/2024 14:50:13 07/04/2024 16:00:31 Muscle atrophy 99652596 M62.50 [id number] ADI ROSEY LUKET [facility] [address] [place] [address] 07/06/2024 14:54:15 07/06/2024 15:44:19 Muscle atrophy 01614581 M62.50 [id number] ROSEY CURRIET [facility] [address] [place] [address] 07/13/2024 14:56:46 07/13/2024 15:57:58 Muscle atrophy 86312171 M62.50 [id number] ROSEY CURRIET [facility] [address] [place] [address] 07/19/2024 14:53:30 07/19/2024 16:22:51 Muscle atrophy 81559715 M62.50 [id number] ADI ROSEY LUKET [facility] [address] [place] [address] 07/26/2024 14:53:11 07/26/2024 16:06:19 Muscle atrophy 80456083 M62.50 [id number] ADI LUKE DPT [facility] [address] [place] [address] 07/28/2024 14:52:01 07/28/2024 16:31:47 Muscle atrophy 32063338 M62.50 [id number] ADI LUKE DPT [facility] [address] [place] [address] 08/03/2024 14:50:13 08/03/2024 15:44:28 Muscle atrophy 21869297 M62.50 Health Concerns Section Related Observation LastModified by Organization Raghavendra johnson LastModified Time None Recorded Concern Status LastModified by Organization Details LastModified Time None Recorded Payers Encounter Date Sequence Insurance Name Policy Number Policy Solano Covered Member ID Solano Member ID Guarantor Name 08/03/2024 2 [facility] [id number] Mehdi Milan Carlton [id number] DeonKayli Vincent 08/03/2024 1 MEDICARE [place] [facility] DeonKayli Vincent [id number] Mehdi Vincent Notes Date Note Type Note Provider Name and Address Organization Details Recorded Time 08/03/2024 text/html Pt reports that he is doing well today but is having an arthritis day which has caused some achiness. Pt says that he continues to do his exercises in the gym and feels that he continues to make small gains. ADI LUKE, DPT [address], [place], [address], [facility] 08/05/2024 16:01:59
--- OUTSIDE RECORDS SUMMARY | 2024-09-14 22:43 | XMS_ITS | Continuity of Care Document ---
Author Organization [place] - [facility] [place] [facility] Address [address] [place] [address] Care Team Providers Care Insole Taper Name Role Phone ELIZABETH WESLEY Referring Provider [phone] Assessment Encounter Date Assessment Date Assessment LastModified by Organization Details LastModified Time 07/04/2024 07/04/2024 NMES parameters: 5/5 on/off, 50% duty cycle, 50BPS Assessment: Pt able to do all movements without increase in symptoms. Pt noted fatigue in the anterior shoulder and periscapular muscles. Pt needed verbal cues on occasion to correct upper trap compensation and improve lower and mid trap activation. Plan: 2x a week for 6 week. Montserratian NMES w/ strengthening activities. [email or web address] Not available 07/04/2024 16:08:34 Plan of Treatment Reminders Order Date Submit Date Provider Last Modified By Organization Details Last Modified Time Details Appointments PT ANY 30 2023 03:00P M ADI LUKE DPT Not available Not available Not available PT INITIAL EVAL 2024 03:00P M Savita Garcia, HANDLE TURNER Not available Not available Not available PT FOLLOW-U P 2024 03:00P M Savita Garcia, HANDLE TURNER Not available Not available Not available PT FOLLOW-U P 2024 03:00P M Savita Garcia, HANDLE TURNER Not available Not available Not available PT FOLLOW-U P 2024 03:00P M Savita Garcia, HANDLE TURNER Not available Not available Not available PT FOLLOW-U P 2024 03:00P M Savita Garcia, HANDLE TURNER Not available Not available Not available PT FOLLOW-U P 2024 03:00P M Savita Garcia, HANDLE TURNER Not available Not available Not available PT FOLLOW-U P 2024 03:00P M Savita Garcia, HANDLE TURNER Not available Not available Not available PT FOLLOW-U P 2024 03:00P M Savita Garcia, HANDLE TURNER Not available Not available Not available Lab None recorded . Referral None recorded . Procedures None recorded . Surgeries None recorded . Imaging None recorded . Medication Orders None recorded . Patient Targets Encounter Date Encounter Id Patient Goals Patient Target Last Modified By Organization Details Last Modified Time 07/04/2024 [id number] prison goal of Right Shoulder Strength -[id number] Not available Not available Not available ferry terminal agent goal of Right Shoulder Strength -[id number] Not available Not available Not available ferry terminal agent goal of Right Shoulder Strength -924823 Not available Not available Not available 3 weeks of Sleeping -542047 Not available Not available Not available 3 weeks of Overall ADL's NOTE Not available Not available Not available ferry terminal agent goal of Overall ADL's -167614 Not available Not available Not available prison goal of Reaching NOTE Not available Not available Not available ferry terminal agent goal of Lifting -193742 Not available Not available Not available 3 weeks of Pain NOTE Not available Not available Not available ferry terminal agent goal of Pain NOTE Not available Not available Not available Patient InstructionsNo instructions recorded. Reason for Referral None Reported. Procedures Surgical History Date Name Laterality Status Provider Name and Address Organization Details Recorded Time 4 57142 Therapeutic Exercise (1:1) completed ADI LUKE DPT [address], [place], [address], [facility] 05/25/2024 22:30:29 4 57346 Therapeutic Exercise (1:1) completed ADI LUKE DPT [address], [place], [address], [facility] 05/15/2024 19:00:39 4 98254 Therapeutic Exercise (1:1) completed ROSEY CURRIET [address], [place], [address], [facility] 05/10/2024 14:13:34 4 21485 Therapeutic Exercise (1:1) completed ADI MARLY, DPT [address], [place], [address], [facility] 05/06/2024 09:30:20 4 23506 Therapeutic Exercise (1:1) completed ADI VALDOVINOSE, DPT [address], [place], [address], [facility] 04/29/2024 15:35:43 4 55667 Therapeutic Exercise (1:1) completed ADI VALDOVINOSE, DPT [address], [place], [address], [facility] 04/26/2024 15:40:11 4 33559 Therapeutic Exercise (1:1) completed ADI LUKE, DPT [address], [place], [address], [facility] 04/24/2024 18:36:24 4 26174 Therapeutic Exercise (1:1) completed ADI VALDOVINOSE, DPT [address], [place], [address], [facility] 04/20/2024 08:02:00 4 35502: Manual therapy completed ADI LUKE, DPT [address], [place], [address], [facility] 04/20/2024 08:02:14 4 05659 Therapeutic Exercise (1:1) completed ADI LUKE, DPT [address], [place], [address], [facility] 04/12/2024 16:54:43 4 97007 Therapeutic Exercise (1:1) completed ADI LUKE, DPT [address], [place], [address], [facility] 04/10/2024 21:14:32 4 43462 Therapeutic Exercise (1:1) completed ADI LUKE, DPT [address], [place], [address], [facility] 04/05/2024 18:44:20 4 79895 Therapeutic Exercise (1:1) completed ADI LUKE, DPT [address], [place], [address], [facility] 04/03/2024 20:11:04 4 02189 Therapeutic Exercise (1:1) completed ADI LUKE, DPT [address], [place], [address], [facility] 03/30/2024 08:23:10 4 55021 Therapeutic Exercise (1:1) completed ADI LUKE, DPT [address], [place], [address], [facility] 03/27/2024 23:05:31 4 73567 Therapeutic Exercise (1:1) completed ADI LUKE, DPT [address], [place], [address], [facility] 03/24/2024 07:44:55 4 79504 Therapeutic Exercise (1:1) completed ADI LUKE, DPT [address], [place], [address], [facility] 03/17/2024 16:53:43 4 45176 Therapeutic Exercise (1:1) completed ADI LUKE, DPT [address], [place], [address], [facility] 03/15/2024 21:42:53 4 78789 Therapeutic Exercise (1:1) completed ADI LUKE, DPT [address], [place], [address], [facility] 03/11/2024 15:23:42 4 48606 Therapeutic Exercise (1:1) completed ADI LUKE, DPT [address], [place], [address], [facility] 03/04/2024 11:54:05 4 35564 Therapeutic Exercise (1:1) completed ADI VALDOVINOSE, DPT [address], [place], [address], [facility] 03/03/2024 08:14:46 4 30912 Therapeutic Exercise (1:1) completed ADI ULKE, DPT [address], [place], [address], [facility] 02/24/2024 13:47:11 4 82870 Therapeutic Exercise (1:1) completed ADI LUKE, DPT [address], [place], [address], [facility] 02/23/2024 10:20:06 4 71297 Therapeutic Exercise (1:1) completed ADI LUKE, DPT [address], [place], [address], [facility] 02/19/2024 12:42:15 4 16390: Low complexity PT Eval completed ADI LUKE, DPT [address], [place], [address], [facility] 02/19/2024 12:42:20 4 G8419 BMI Outside Normal Parameters, F/U not Documented completed ADI LUKE, DPT [address], [place], [address], [facility] 02/19/2024 12:45:35 4 G8427 Current Medication Documented completed ADI LUKE, DPT [address], [place], [address], [facility] 02/19/2024 12:45:40 Imaging Results [...] Diagnosis/Indication Diagnosis SNOMED-CT Code Diagnosis ICD10 Code [id number] [facility] [address] [place] [address] 06/07/2024 10:23:57 06/07/2024 15:35:33 Muscle atrophy 75723463 M62.50 [id number] [facility] [address] [place] [address] 06/10/2024 12:49:32 06/10/2024 14:11:12 Muscle atrophy 39293484 M62.50 [id number] [facility] [address] [place] [address] 06/21/2024 14:58:11 06/21/2024 16:18:26 Muscle atrophy 95045788 M62.50 [id number] [facility]RIE [facility] [address] [place] [address] 06/24/2024 15:22:18 06/24/2024 16:07:12 Muscle atrophy 49236630 M62.50 [id number] [facility] CURRIE [facility] [address] [place] [address] 06/28/2024 11:56:06 06/28/2024 13:21:44 Muscle atrophy 38485033 M62.50 [id number] [facility] [address] [place] [address] 07/01/2024 13:48:59 07/01/2024 15:05:45 Muscle atrophy 33037342 M62.50 [id number] [facility] [place] [address] [place] [address] 07/04/2024 14:50:13 07/04/2024 16:00:31 Muscle atrophy 65799408 M62.50 Health Concerns Section Related Observation LastModified by Organization Detai ls LastModified Time None Recorded Concern Status LastModified by Organization Details LastModified Time None Recorded Payers Encounter Date Sequence Insurance Name Policy Number Policy Solano Covered Member ID Solano Member ID Guarantor Name 07/04/2024 2 [facility] [id number] Mehdi Vincent [id number] Mehdi Vincent 07/04/2024 1 MEDICARE B-[place]: [facility] [employer] Mehdi Vincent [id number] Mehdi Vincent Notes Date Note Type Note Provider Name and Address Organization Details Recorded Time 07/04/2024 text/html Pt reports that he is doing well today and that he feels that reaching up for things is getting a little easier. Pt denies any pain today but does notice some tingling on the L LS and ante-cubital fossa. ADI LUKE, DPT [address], [place], [address], [facility] [place] [facility] 07/04/2024 16:10:18
--- OUTSIDE RECORDS SUMMARY | 2024-09-14 22:43 | XMS_ITS | Continuity of Care Document ---
Author Organization [place] - [facility] [place] [facility] Address [address] [place] [address] Care Team Providers Care Title Curator Name Role Phone ELIZABETH WESLEY Referring Provider [phone] Assessment Encounter Date Assessment Date Assessment LastModified by Organization Details LastModified Time 07/28/2024 07/28/2024 NMES parameters: 5/5 on/off, 50% duty cycle, 50BPS Assessment: Pt able to do all exercise with minimal issue. Pt had some upper trap compensation and difficulty moving the arm through full ROM but no significant symptoms. Plan: 2x a week for 6 week. Cameroonian NMES w/ strengthening activities. [email or web address] Not available 07/31/2024 22:03:50 Plan of Treatment Reminders Order Date Submit Date Provider Last Modified By Organization Details Last Modified Time Details Appointments PT ANY 30 2023 03:00P M ADI LUKE DPT Not available Not available Not available PT INITIAL EVAL 2024 03:00P M Savita Garcia, PLATFORM ATTENDANT Not available Not available Not available PT FOLLOW-U P 2024 03:00P M Savita Garcia, PLATFORM ATTENDANT Not available Not available Not available PT FOLLOW-U P 2024 03:00P M Savita Garcia, PLATFORM ATTENDANT Not available Not available Not available PT FOLLOW-U P 2024 03:00P M Savita Garcia, PLATFORM ATTENDANT Not available Not available Not available PT FOLLOW-U P 2024 03:00P M Savita Garcia, PLATFORM ATTENDANT Not available Not available Not available PT FOLLOW-U P 2024 03:00P M Savita Garcia, PLATFORM ATTENDANT Not available Not available Not available PT FOLLOW-U P 2024 03:00P M Savita Radha, PLATFORM ATTENDANT Not available Not available Not available PT FOLLOW-U P 2024 03:00P M Savita Radha, PLATFORM ATTENDANT Not available Not available Not available Lab None recorded . Referral None recorded . Procedures None recorded . Surgeries None recorded . Imaging None recorded . Medication Orders None recorded . Patient Targets Encounter Date Encounter Id Patient Goals Patient Target Last Modified By Organization Details Last Modified Time 07/28/2024 [id number] intermediate goal of Right Shoulder Strength -[id number] Not available Not available Not available intermediate goal of Right Shoulder Strength -[id number] Not available Not available Not available terminal makeup operator goal of Right Shoulder Strength -520915 Not available Not available Not available 3 weeks of Sleeping -012493 Not available Not available Not available 3 weeks of Overall ADL's NOTE Not available Not available Not available intermediate goal of Overall ADL's -[id number] Not available Not available Not available terminal makeup operator goal of Reaching NOTE Not available Not available Not available intermediate goal of Lifting -273528 Not available Not available Not available 3 weeks of Pain NOTE Not available Not available Not available intermediate goal of Pain NOTE Not available Not available Not available Patient InstructionsNo instructions recorded. Reason for Referral None Reported. Procedures Surgical History Date Name Laterality Status Provider Name and Address Organization Details Recorded Time 4 83060 Therapeutic Exercise (1:1) completed ADI LUKE DPT [address] [facility] [place], [place], [address], [facility] 05/25/2024 22:30:29 4 44716 Therapeutic Exercise (1:1) completed ADI LUKE DPT [address], [place], [address], [facility] 05/15/2024 19:00:39 4 09675 Therapeutic Exercise (1:1) completed ROSEY CURRIET [address], [place], [address], [facility] 05/10/2024 14:13:34 4 78723 Therapeutic Exercise (1:1) completed ADI LUKE DPT [address], [place], [address], [facility] 05/06/2024 09:30:20 4 99711 Therapeutic Exercise (1:1) completed ADI LUKE, DPT [address], [place], [address], [facility] 04/29/2024 15:35:43 4 86193 Therapeutic Exercise (1:1) completed ADI LUKE, DPT [address], [place], [address], [facility] 04/26/2024 15:40:11 4 18640 Therapeutic Exercise (1:1) completed ADI LUKE, DPT [address], [place], [address], [facility] 04/24/2024 18:36:24 4 15945 Therapeutic Exercise (1:1) completed ADI LUKE, DPT [address], [place], [address], [facility] 04/20/2024 08:02:00 4 74657: Manual therapy completed ADI LUKE, DPT [address], [place], [address], [facility] 04/20/2024 08:02:14 4 06421 Therapeutic Exercise (1:1) completed ADI LUKE, DPT [address], [place], [address], [facility] 04/12/2024 16:54:43 4 37000 Therapeutic Exercise (1:1) completed ADI LUKE, DPT [address], [place], [address], [facility] 04/10/2024 21:14:32 4 27707 Therapeutic Exercise (1:1) completed ADI LUKE, DPT [address], [place], [address], [facility] 04/05/2024 18:44:20 4 42599 Therapeutic Exercise (1:1) completed ADI LUKE, DPT [address], [place], [address], [facility] 04/03/2024 20:11:04 4 85986 Therapeutic Exercise (1:1) completed ADI LUKE, DPT [address], [place], [address], [facility] 03/30/2024 08:23:10 4 62208 Therapeutic Exercise (1:1) completed ADI LUKE, DPT [address], [place], [address], [facility] 03/27/2024 23:05:31 4 51285 Therapeutic Exercise (1:1) completed ADI LUKE, DPT [address], [place], [address], [facility] 03/24/2024 07:44:55 4 66278 Therapeutic Exercise (1:1) completed ADI LUKE, DPT [address], [place], [address], [facility] 03/17/2024 16:53:43 4 29587 Therapeutic Exercise (1:1) completed ADI LUKE, DPT [address], [place], [address], [facility] 03/15/2024 21:42:53 4 02480 Therapeutic Exercise (1:1) completed ADI LUKE, DPT [address], [place], [address], [facility] 03/11/2024 15:23:42 4 67302 Therapeutic Exercise (1:1) completed ADI LUKE, DPT [address], [place], [address], [facility] 03/04/2024 11:54:05 4 77379 Therapeutic Exercise (1:1) completed ADI LUKE DPT [address], [place], [address], [facility] 03/03/2024 08:14:46 4 31304 Therapeutic Exercise (1:1) completed ADI LUKE DPT [address], [place], [address], [facility] 02/24/2024 13:47:11 4 70085 Therapeutic Exercise (1:1) completed ADI LUKE DPT [address], [place], [address], [facility] 02/23/2024 10:20:06 4 67744 Therapeutic Exercise (1:1) completed ADI LUKE DPT [address], [place], [address], [facility] 02/19/2024 12:42:15 4 15801: Low complexity PT Eval completed ADI LUKE DPT [address], [place], [address], [facility] 02/19/2024 12:42:20 4 G8419 BMI Outside Normal Parameters, F/U not Documented completed ADI LUKE DPT [address], [place], [address], [facility] 02/19/2024 12:45:35 4 G8427 Current Medication Documented completed ADI LUKE DPT [address], [place], [address], [facility] 02/19/2024 12:45:40 Imaging Results [...] Diagnosis/Indication Diagnosis SNOMED-CT Code Diagnosis ICD10 Code [id number] ROSEY CURRIET [facility] [address] [place] [address] 06/28/2024 11:56:06 06/28/2024 13:21:44 Muscle atrophy 28520431 M62.50 [id number] ROSEY CURRIET [facility] [address] [place] [address] 07/01/2024 13:48:59 07/01/2024 15:05:45 Muscle atrophy 95954120 M62.50 [id number] ROSEY CURRIET [facility] [address] [place] [address] 07/04/2024 14:50:13 07/04/2024 16:00:31 Muscle atrophy 68505251 M62.50 [id number] ROSEY CURRIET [facility] [address] [place] [address] 07/06/2024 14:54:15 07/06/2024 15:44:19 Muscle atrophy 99611987 M62.50 [id number] ROSEY CURRIET [facility] [address] [place] [address] 07/13/2024 14:56:46 07/13/2024 15:57:58 Muscle atrophy 60956713 M62.50 [id number] ADI LUKE DPT [facility] [address] [place] [address] 07/19/2024 14:53:30 07/19/2024 16:22:51 Muscle atrophy 41282802 M62.50 [id number] ADI LUKE DPT [facility] [address] [place] [address] 07/26/2024 14:53:11 07/26/2024 16:06:19 Muscle atrophy 21265123 M62.50 [id number] ADI LUKE DPT [facility] [address] [place] [address] 07/28/2024 14:52:01 07/28/2024 16:31:47 Muscle atrophy 37443058 M62.50 Health Concerns Section Related Observation LastModified by Organization Detai ls LastModified Time None Recorded Concern Status LastModified by Organization Details LastModified Time None Recorded Payers Encounter Date Sequence Insurance Name Policy Number Policy Solano Covered Member ID Solano Member ID Guarantor Name 07/28/2024 2 [facility] [id number] Mehdi Vincent [id number] Mehdi Vincent 07/28/2024 1 [place]: [employer] Mehdi Vincent [id number] Mehdi Vincent Notes Date Note Type Note Provider Name and Address Organization Details Recorded Time 07/28/2024 text/html Pt reprots that he continues to do well and that he still sees some progress. Pt says that things like reaching overhead continue to improve. ADI LUKE, DPT [address], [place], [address], [facility] 07/31/2024 22:05:00
--- OUTSIDE RECORDS SUMMARY | 2024-09-14 22:43 | XMS_ITS | Continuity of Care Document ---
Author Organization [place] - [facility] [place] [facility] Address [address] [place] [address] Care Team Providers Care Pool Manager Name Role Phone LUPILLO ELIZABETH Referring Provider [phone] Assessment Encounter Date Assessment Date Assessment LastModified by Organization Details LastModified Time 07/13/2024 07/13/2024 NMES parameters: 5/5 on/off, 50% duty cycle, 50BPS Assessment: Pt able to do all exercies without an increase in discomfort. Pt noted some fatigue and needed rest breaks on occasion. Plan: 2x a week for 6 week. Malawian NMES w/ strengthening activities. [email or web address] Not available 07/14/2024 10:10:30 Plan of Treatment Reminders Order Date Submit Date Provider Last Modified By Organization Details Last Modified Time Details Appointments PT ANY 30 2023 03:00P M ADI LUKE DPT Not available Not available Not available PT INITIAL EVAL 2024 03:00P M Savita Garcia, CANTILEVER CRANE OPERATOR Not available Not available Not available PT FOLLOW-U P 2024 03:00P M Savita Garcia, CANTILEVER CRANE OPERATOR Not available Not available Not available PT FOLLOW-U P 2024 03:00P M Savita Garcia, CANTILEVER CRANE OPERATOR Not available Not available Not available PT FOLLOW-U P 2024 03:00P M Savita Garcia, CANTILEVER CRANE OPERATOR Not available Not available Not available PT FOLLOW-U P 2024 03:00P M Savita Garcia, CANTILEVER CRANE OPERATOR Not available Not available Not available PT FOLLOW-U P 2024 03:00P M Savita Garcia, CANTILEVER CRANE OPERATOR Not available Not available Not available PT FOLLOW-U P 2024 03:00P M Savita Garcia, CANTILEVER CRANE OPERATOR Not available Not available Not available PT FOLLOW-U P 2024 03:00P M Savita Garcia, CANTILEVER CRANE OPERATOR Not available Not available Not available Lab None recorded . Referral None recorded . Procedures None recorded . Surgeries None recorded . Imaging None recorded . Medication Orders None recorded . Patient Targets Encounter Date Encounter Id Patient Goals Patient Target Last Modified By Organization Details Last Modified Time 07/13/2024 [id number] oysterman goal of Right Shoulder Strength -[id number] Not available Not available Not available care home goal of Right Shoulder Strength -[id number] Not available Not available Not available oysterman goal of Right Shoulder Strength -300985 Not available Not available Not available 3 weeks of Sleeping -251191 Not available Not available Not available 3 weeks of Overall ADL's NOTE Not available Not available Not available oysterman goal of Overall ADL's -392950 Not available Not available Not available oysterman goal of Reaching NOTE Not available Not available Not available care home goal of Lifting -323270 Not available Not available Not available 3 weeks of Pain NOTE Not available Not available Not available oysterman goal of Pain NOTE Not available Not available Not available Patient InstructionsNo instructions recorded. Reason for Referral None Reported. Procedures Surgical History Date Name Laterality Status Provider Name and Address Organization Details Recorded Time 4 85568 Therapeutic Exercise (1:1) completed ADI LUKE DPT [address] [facility], [place], [address], [facility] 05/25/2024 22:30:29 4 15303 Therapeutic Exercise (1:1) completed ADI LUKE DPT [address] [facility], [place], [address], [facility] 05/15/2024 19:00:39 4 55522 Therapeutic Exercise (1:1) completed ADI LUKE DPT [address], [place], [address], [facility] 05/10/2024 14:13:34 4 05677 Therapeutic Exercise (1:1) completed ADI LUKE DPT [address] [facility], [place], [address], [facility] 05/06/2024 09:30:20 4 29469 Therapeutic Exercise (1:1) completed ADI LUKE DPT [address], [place], [address], [facility] 04/29/2024 15:35:43 4 69355 Therapeutic Exercise (1:1) completed ADI LUKE, DPT [address], [place], [address], [facility] 04/26/2024 15:40:11 4 64557 Therapeutic Exercise (1:1) completed ADI LUKE, DPT [address], [place], [address], [facility] 04/24/2024 18:36:24 4 19103 Therapeutic Exercise (1:1) completed ADI LUKE, DPT [address], [place], [address], [facility] 04/20/2024 08:02:00 4 46984: Manual therapy completed ADI LUKE, DPT [address], [place], [address], [facility] 04/20/2024 08:02:14 4 49147 Therapeutic Exercise (1:1) completed ADI LUKE DPT [address], [place], [address], [facility] 04/12/2024 16:54:43 4 85316 Therapeutic Exercise (1:1) completed ADI LUKE, DPT [address], [place], [address], [facility] 04/10/2024 21:14:32 4 04976 Therapeutic Exercise (1:1) completed ADI LUEK, DPT [address], [place], [address], [facility] 04/05/2024 18:44:20 4 28962 Therapeutic Exercise (1:1) completed ADI MARLY, DPT [address], [place], [address], [facility] 04/03/2024 20:11:04 4 54805 Therapeutic Exercise (1:1) completed ADI LUKE, DPT [address], [place], [address], [facility] 03/30/2024 08:23:10 4 19074 Therapeutic Exercise (1:1) completed ADI LUKE, DPT [address], [place], [address], [facility] 03/27/2024 23:05:31 4 25784 Therapeutic Exercise (1:1) completed ADI LUKE, DPT [address], [place], [address], [facility] 03/24/2024 07:44:55 4 85744 Therapeutic Exercise (1:1) completed ADI LUKE, DPT [address], [place], [address], [facility] 03/17/2024 16:53:43 4 60956 Therapeutic Exercise (1:1) completed ADI LUKE, DPT [address], [place], [address], [facility] 03/15/2024 21:42:53 4 77836 Therapeutic Exercise (1:1) completed ADI LUKE, DPT [address], [place], [address], [facility] 03/11/2024 15:23:42 4 78803 Therapeutic Exercise (1:1) completed ADI LUKE, DPT [address], [place], [address], [facility] 03/04/2024 11:54:05 4 32037 Therapeutic Exercise (1:1) completed ADI LUKE, DPT [address] [facility], [place], [address], [facility] 03/03/2024 08:14:46 4 72577 Therapeutic Exercise (1:1) completed ADI LUKE, DPT [address], [place], [address], [facility] 02/24/2024 13:47:11 4 46288 Therapeutic Exercise (1:1) completed ADI LUKE, DPT [address], [place], [address], [facility] 02/23/2024 10:20:06 4 27740 Therapeutic Exercise (1:1) completed ADI LUKE DPT [address], [place], [address], [facility] 02/19/2024 12:42:15 4 91552: Low complexity PT Eval completed ADI LUKE DPT [address], [place], [address], [facility] 02/19/2024 12:42:20 4 G8419 BMI Outside Normal Parameters, F/U not Documented completed ADI LUKE DPT [address], [place], [address], [facility] 02/19/2024 12:45:35 4 G8427 Current Medication Documented completed ADI LUKE, DPT [address], [place], [address], [facility] 02/19/2024 12:45:40 Imaging Results None recorded. Procedure [...] Diagnosis/Indication Diagnosis SNOMED-CT Code Diagnosis ICD10 Code [id number] ADI BANDATAINKaris RO[facility] [address] [place] [address] 06/21/2024 14:58:11 06/21/2024 16:18:26 Muscle atrophy 39823559 M62.50 [id number] ADI BANDAELIEZER DPT [facility] [address] [place] [address] 06/24/2024 15:22:18 06/24/2024 16:07:12 Muscle atrophy 90572156 M62.50 [id number] ADI MARLY DPT [facility] [address] [place] [address] 06/28/2024 11:56:06 06/28/2024 13:21:44 Muscle atrophy 59751353 M62.50 [id number] ADI LUKE DPT [facility] [address] [place] [address] 07/01/2024 13:48:59 07/01/2024 15:05:45 Muscle atrophy 94682941 M62.50 [id number] ADI MARLY DPT [facility] [address] [place] [address] 07/04/2024 14:50:13 07/04/2024 16:00:31 Muscle atrophy 55787269 M62.50 [id number] ADI MARLY DPT [facility] [address] [place] [address] 07/06/2024 14:54:15 07/06/2024 15:44:19 Muscle atrophy 17681819 M62.50 [id number] ADI LUKE DPT [facility] [address] [place] [address] 07/13/2024 14:56:46 07/13/2024 15:57:58 Muscle atrophy 70500668 M62.50 Health Concerns Section Related Observation LastModified by Organization Detai ls LastModified Time None Recorded Concern Status LastModified by Organization Details LastModified Time None Recorded Payers Encounter Date Sequence Insurance Name Policy Number Policy Solano Covered Member ID Solano Member ID Guarantor Name 07/13/2024 2 [facility] [id number] Mehdi Milan Carlton [id number] Mehdi Milan Carlton 07/13/2024 1 MED[place]: [facility] Mehdi Vincent [id number] Mehdi Milan Carlton Notes Date Note Type Note Provider Name and Address Organization Details Recorded Time 07/13/2024 text/html Pt reports that he is doing okay today. Pt says that he has had a lot of stress recently and he has been trying to stay on top of things. Pt notes that his arm is doing okay and he continues to do his exercises at the gym and continues to feel that he is making some progress. ADI LUKE, DPT [address], [place], [address], [facility] 07/14/2024 10:11:45
--- OUTSIDE RECORDS SUMMARY | 2024-09-14 22:43 | XMS_ITS | Continuity of Care Document ---
Author Organization [place] - [facility] [place] [facility] Address [address] [place] [address] Care Team Providers Care Processor Helper Name Role Phone LUPILLO ELIZABETH Referring Provider Assessment Encounter Date Assessment Date Assessment LastModified by Organization Details LastModified Time 07/06/2024 07/06/2024 NMES parameters: 5/5 on/off, 50% duty cycle, 50BPS Assessment: Pt able to do all exercies without an increase in discomfort. Pt noted some fatigue and needed rest breaks on occasion. Plan: 2x a week for 6 week. [place] NMES w/ strengthening activities. [email or web address] Not available 07/11/2024 20:38:43 Plan of Treatment Reminders Order Date Submit Date Provider Last Modified By Organization Details Last Modified Time Details Appointments PT ANY 30 2023 03:00P M ADI LUKE DPT Not available Not available Not available PT INITIAL EVAL 2024 03:00P M Savita Garcia, LABORER PIPELINES Not available Not available Not available PT FOLLOW-U P 2024 03:00P M Savita Garcia, LABORER PIPELINES Not available Not available Not available PT FOLLOW-U P 2024 03:00P M Savita Garcia, LABORER PIPELINES Not available Not available Not available PT FOLLOW-U P 2024 03:00P M Savita Garcia, LABORER PIPELINES Not available Not available Not available PT FOLLOW-U P 2024 03:00P M Savita Garcia, LABORER PIPELINES Not available Not available Not available PT FOLLOW-U P 2024 03:00P M Savita Garcia, LABORER PIPELINES Not available Not available Not available PT FOLLOW-U P 2024 03:00P M Savita Garcia, LABORER PIPELINES Not available Not available Not available PT FOLLOW-U P 2024 03:00P M Savita Garcia, LABORER PIPELINES Not available Not available Not available Lab None recorded . Referral None recorded . Procedures None recorded . Surgeries None recorded . Imaging None recorded . Medication Orders None recorded . Patient Targets Encounter Date Encounter Id Patient Goals Patient Target Last Modified By Organization Details Last Modified Time 07/06/2024 [id number] rn long term care goal of Right Shoulder Strength -[id number] Not available Not available Not available group home goal of Right Shoulder Strength -[id number] Not available Not available Not available rn long term care goal of Right Shoulder Strength -[id number] Not available Not available Not available 3 weeks of Sleeping -[id number] Not available Not available Not available 3 weeks of Overall ADL's NOTE Not available Not available Not available rn long term care goal of Overall ADL's -[id number] Not available Not available Not available rn long term care goal of Reaching NOTE Not available Not available Not available group home goal of Lifting -[id number] Not available Not available Not available 3 weeks of Pain NOTE Not available Not available Not available rn long term care goal of Pain NOTE Not available Not available Not available Patient InstructionsNo instructions recorded. Reason for Referral None Reported. Procedures Surgical History Date Name Laterality Status Provider Name and Address Organization Details Recorded Time 4 72940 Therapeutic Exercise (1:1) completed ADI LUKE DPT [address] [facility] [place], [place], [address], [facility] 05/25/2024 22:30:29 4 60714 Therapeutic Exercise (1:1) completed ADI LUKE DPT [address] [facility] [place], [place], [address], [facility] 05/15/2024 19:00:39 4 58246 Therapeutic Exercise (1:1) completed ADI LUKE DPT [address], [place], [address], [facility] 05/10/2024 14:13:34 4 15799 Therapeutic Exercise (1:1) completed ADI LUKE DPT [address] [facility] [place], [place], [address], [facility] 05/06/2024 09:30:20 4 86573 Therapeutic Exercise (1:1) completed ADI LUKE DPT [address], [place], [address], [facility] 04/29/2024 15:35:43 4 90075 Therapeutic Exercise (1:1) completed ADI LUKE, DPT [address], [place], [address], [facility] 04/26/2024 15:40:11 4 23908 Therapeutic Exercise (1:1) completed ADI LUKE, DPT [address], [place], [address], [facility] 04/24/2024 18:36:24 4 13156 Therapeutic Exercise (1:1) completed ADI LUKE, DPT [address], [place], [address], [facility] 04/20/2024 08:02:00 4 71850: Manual therapy completed ADI LUKE, DPT [address], [place], [address], [facility] 04/20/2024 08:02:14 4 05233 Therapeutic Exercise (1:1) completed ADI LUKE DPT [address], [place], [address], [facility] 04/12/2024 16:54:43 4 69605 Therapeutic Exercise (1:1) completed ADI LKUE, DPT [address], [place], [address], [facility] 04/10/2024 21:14:32 4 30060 Therapeutic Exercise (1:1) completed ADI LUKE, DPT [address], [place], [address], [facility] 04/05/2024 18:44:20 4 84644 Therapeutic Exercise (1:1) completed ADI MARLY, DPT [address], [place], [address], [facility] 04/03/2024 20:11:04 4 21625 Therapeutic Exercise (1:1) completed ADI LUKE, DPT [address], [place], [address], [facility] 03/30/2024 08:23:10 4 80068 Therapeutic Exercise (1:1) completed ADI LUKE, DPT [address], [place], [address], [facility] 03/27/2024 23:05:31 4 25449 Therapeutic Exercise (1:1) completed ADI LUKE, DPT [address], [place], [address], [facility] 03/24/2024 07:44:55 4 77766 Therapeutic Exercise (1:1) completed ADI LUKE, DPT [address], [place], [address], [facility] 03/17/2024 16:53:43 4 64485 Therapeutic Exercise (1:1) completed ADI LUKE, DPT [address], [place], [address], [facility] 03/15/2024 21:42:53 4 70364 Therapeutic Exercise (1:1) completed ADI LUKE, DPT [address], [place], [address], [facility] 03/11/2024 15:23:42 4 57235 Therapeutic Exercise (1:1) completed ADI LUKE, DPT [address], [place], [address], [facility] 03/04/2024 11:54:05 4 29364 Therapeutic Exercise (1:1) completed ADI LUKE, DPT [address] [facility] [place], [place], [address], [facility] 03/03/2024 08:14:46 4 40291 Therapeutic Exercise (1:1) completed ADI LUKE, DPT [address], [place], [address], [facility] 02/24/2024 13:47:11 4 18918 Therapeutic Exercise (1:1) completed ADI LUKE, DPT [address], [place], [address], [facility] 02/23/2024 10:20:06 4 02382 Therapeutic Exercise (1:1) completed ADI LUKE DPT [address], [place], [address], [facility] 02/19/2024 12:42:15 4 80135: Low complexity PT Eval completed ADI LUKE DPT [address], [place], [address], [facility] 02/19/2024 12:42:20 4 G8419 BMI Outside Normal Parameters, F/U not Documented completed ADI LUKE DPT [address], [place], [address], [facility] 02/19/2024 12:45:35 4 G8427 Current Medication Documented completed ADI LUKE, DPT [address], [place], [address], [facility] 02/19/2024 12:45:40 Imaging Results None [...] Diagnosis/Indication Diagnosis SNOMED-CT Code Diagnosis ICD10 Code 3026489 ADI MARLY DPT [facility] [address] [place] [address] 06/07/2024 10:23:57 06/07/2024 15:35:33 Muscle atrophy 62524997 M62.50 [id number] ADI MARLY DPT [facility] [address] [place] [address] 06/10/2024 12:49:32 06/10/2024 14:11:12 Muscle atrophy 71166173 M62.50 [id number] ADI LUKE DPT [facility] [address] [place] [address] 06/21/2024 14:58:11 06/21/2024 16:18:26 Muscle atrophy 91384364 M62.50 [id number] ADI LUKE DPT [facility] [address] [place] [address] 06/24/2024 15:22:18 06/24/2024 16:07:12 Muscle atrophy 35917939 M62.50 [id number] ADI LUKE DPT [facility] [address] [place] [address] 06/28/2024 11:56:06 06/28/2024 13:21:44 Muscle atrophy 87794319 M62.50 [id number] ADI LUKE DPT [facility] [address] [place] [address] 07/01/2024 13:48:59 07/01/2024 15:05:45 Muscle atrophy 77195944 M62.50 [id number] ADI LUKE DPT [facility] [address] [place] [address] 07/04/2024 14:50:13 07/04/2024 16:00:31 Muscle atrophy 08986135 M62.50 [id number] ADI LUKE DPT [facility] [address] [place] [address] 07/06/2024 14:54:15 07/06/2024 15:44:19 Muscle atrophy 47616573 M62.50 Health Concerns Section Related Observation LastModified by Organization Detai ls LastModified Time None Recorded Concern Status LastModified by Organization Details LastModified Time None Recorded Payers Encounter Date Sequence Insurance Name Policy Number Policy Solano Covered Member ID Solano Member ID Guarantor Name 07/06/2024 2 [facility] [id number] Mehdi Vincent [id number] Mehdi Vincent 07/06/2024 1 MEDICARE [place]: [employer] Mehdi Vincent [id number] Mehdi Vincent Notes Date Note Type Note Provider Name and Address Organization Details Recorded Time 07/06/2024 text/html Pt notes that he is doing well today and feels that the new exercises have posed a new challenge and that he has been doing them at the gym. Pt notes that they do cause some soreness but no increase in weakness. ADI LUKE, DPT [address], [place], [address], [facility] 07/11/2024 20:38:58
--- OUTSIDE RECORDS SUMMARY | 2024-09-14 22:43 | XMS_ITS | Continuity of Care Document ---
Author Organization [place] - [facility] [place] [facility] Address [address] [place] [address] Care Team Providers Care Ski Topper Name Role Phone ELIZABETH WESLEY Referring Provider Assessment Encounter Date Assessment Date Assessment LastModified by Organization Details LastModified Time 07/26/2024 07/26/2024 NMES parameters: 5/5 on/off, 50% duty cycle, 50BPS Assessment: Pt able to do all exercise with minimal issue. Pt had some upper trap compensation and difficulty moving the arm through full ROM but no significant symptoms. Plan: 2x a week for 6 week. [place]ic NMES w/ strengthening activities. [email or web address] Not available 07/28/2024 13:57:14 Plan of Treatment Reminders Order Date Submit Date Provider Last Modified By Organization Details Last Modified Time Details Appointments PT ANY 30 2023 03:00P M ADI LUKE DPT Not available Not available Not available PT INITIAL EVAL 2024 03:00P M Savita Garcia, FLEET ADMINISTRATOR Not available Not available Not available PT FOLLOW-U P 2024 03:00P M Savita Garcia, FLEET ADMINISTRATOR Not available Not available Not available PT FOLLOW-U P 2024 03:00P M Savita Garcia, FLEET ADMINISTRATOR Not available Not available Not available PT FOLLOW-U P 2024 03:00P M Savita Garcia, FLEET ADMINISTRATOR Not available Not available Not available PT FOLLOW-U P 2024 03:00P M Savita Garcia, FLEET ADMINISTRATOR Not available Not available Not available PT FOLLOW-U P 2024 03:00P M Savita Garcia, FLEET ADMINISTRATOR Not available Not available Not available PT FOLLOW-U P 2024 03:00P M Savita Radha, FLEET ADMINISTRATOR Not available Not available Not available PT FOLLOW-U P 2024 03:00P M Savita Radha, FLEET ADMINISTRATOR Not available Not available Not available Lab None recorded . Referral None recorded . Procedures None recorded . Surgeries None recorded . Imaging None recorded . Medication Orders None recorded . 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 goal of Right Shoulder Strength -[id number] Not available Not available Not available 3 weeks of Sleeping -422094 Not available Not available Not available 3 weeks of Overall ADL's NOTE Not available Not available Not available alf goal of Overall ADL's -[id number] Not available Not available Not available automobile service station manager goal of Reaching NOTE Not available Not available Not available alf goal of Lifting -[id number] Not available Not available Not available 3 weeks of Pain NOTE Not available Not available Not available alf goal of Pain NOTE Not available Not available Not available Patient InstructionsNo instructions recorded. Reason for Referral None Reported. Procedures Surgical History Date Name Laterality Status Provider Name and Address Organization Details Recorded Time 4 37000 Therapeutic Exercise (1:1) completed ADI LUKE DPT [address] [facility] [place], [place], [address], [facility] 05/25/2024 22:30:29 4 19240 Therapeutic Exercise (1:1) completed ADI LUKE DPT [address], [place], [address], [facility] 05/15/2024 19:00:39 4 10207 Therapeutic Exercise (1:1) completed ROSEY CURRIET [address], [place], [address], [facility] 05/10/2024 14:13:34 4 16661 Therapeutic Exercise (1:1) completed ADI LUKE DPT [address], [place], [address], [facility] 05/06/2024 09:30:20 4 35462 Therapeutic Exercise (1:1) completed ADI LUKE, DPT [address], [place], [address], [facility] 04/29/2024 15:35:43 4 94778 Therapeutic Exercise (1:1) completed ADI LUKE, DPT [address], [place], [address], [facility] 04/26/2024 15:40:11 4 28512 Therapeutic Exercise (1:1) completed ADI LUKE, DPT [address], [place], [address], [facility] 04/24/2024 18:36:24 4 23050 Therapeutic Exercise (1:1) completed ADI LUKE, DPT [address], [place], [address], [facility] 04/20/2024 08:02:00 4 74272: Manual therapy completed ADI LUKE, DPT [address], [place], [address], [facility] 04/20/2024 08:02:14 4 90250 Therapeutic Exercise (1:1) completed ADI LUKE, DPT [address], [place], [address], [facility] 04/12/2024 16:54:43 4 78787 Therapeutic Exercise (1:1) completed ADI LUKE, DPT [address], [place], [address], [facility] 04/10/2024 21:14:32 4 05972 Therapeutic Exercise (1:1) completed ADI LUKE, DPT [address], [place], [address], [facility] 04/05/2024 18:44:20 4 33947 Therapeutic Exercise (1:1) completed ADI LUKE, DPT [address], [place], [address], [facility] 04/03/2024 20:11:04 4 13126 Therapeutic Exercise (1:1) completed ADI LUKE, DPT [address], [place], [address], [facility] 03/30/2024 08:23:10 4 63234 Therapeutic Exercise (1:1) completed ADI LUKE, DPT [address], [place], [address], [facility] 03/27/2024 23:05:31 4 67972 Therapeutic Exercise (1:1) completed ADI LUKE, DPT [address], [place], [address], [facility] 03/24/2024 07:44:55 4 79803 Therapeutic Exercise (1:1) completed ADI LUKE, DPT [address], [place], [address], [facility] 03/17/2024 16:53:43 4 53269 Therapeutic Exercise (1:1) completed ADI LUKE, DPT [address], [place], [address], [facility] 03/15/2024 21:42:53 4 27862 Therapeutic Exercise (1:1) completed ADI LUKE, DPT [address], [place], [address], [facility] 03/11/2024 15:23:42 4 22006 Therapeutic Exercise (1:1) completed ADI LUKE, DPT [address], [place], [address], [facility] 03/04/2024 11:54:05 4 03248 Therapeutic Exercise (1:1) completed ADI LUKE DPT [address], [place], [address], [facility] 03/03/2024 08:14:46 4 67977 Therapeutic Exercise (1:1) completed ADI LUKE DPT [address], [place], [address], [facility] 02/24/2024 13:47:11 4 74531 Therapeutic Exercise (1:1) completed ADI LUKE DPT [address], [place], [address], [facility] 02/23/2024 10:20:06 4 40973 Therapeutic Exercise (1:1) completed ADI LUKE DPT [address], [place], [address], [facility] 02/19/2024 12:42:15 4 73338: Low complexity PT Eval completed ADI LUKE DPT [address], [place], [address], [facility] 02/19/2024 12:42:20 4 G8419 BMI Outside Normal Parameters, F/U not Documented completed ADI LUKE DPT [address], [place], [address], [facility] 02/19/2024 12:45:35 4 G8427 Current Medication Documented completed ADI LUKE DPT [address], [place], [address], [facility] 02/19/2024 12:45:40 Imaging [...] Diagnosis/Indication Diagnosis SNOMED-CT Code Diagnosis ICD10 Code [id number] ADI BANDACAROLYN MARTINS [facility] [address] [place] [address] 06/28/2024 11:56:06 06/28/2024 13:21:44 Muscle atrophy 94538491 M62.50 [id number] ADI ROSEY LUKET [facility] [address] [place] [address] 07/01/2024 13:48:59 07/01/2024 15:05:45 Muscle atrophy 25981420 M62.50 [id number] ADI ROSEY LUKET [facility] [address] [place] [address] 07/04/2024 14:50:13 07/04/2024 16:00:31 Muscle atrophy 28139659 M62.50 [id number] ADI ROSEY LUKET [facility] [address] [place] [address] 07/06/2024 14:54:15 07/06/2024 15:44:19 Muscle atrophy 19349885 M62.50 [id number] ROSEY CURRIET [facility] [address] [place] [address] 07/13/2024 14:56:46 07/13/2024 15:57:58 Muscle atrophy 18426146 M62.50 [id number] ROSEY CURRIET [facility] [address] [place] [address] 07/19/2024 14:53:30 07/19/2024 16:22:51 Muscle atrophy 72207765 M62.50 [id number] ROSEY CURRIET [facility] [address] [place] [address] 07/26/2024 14:53:11 07/26/2024 16:06:19 Muscle atrophy 49312218 M62.50 Health Concerns Section Related Observation LastModified by Organization Detai ls LastModified Time None Recorded Concern Status LastModified by Organization Details LastModified Time None Recorded Payers Encounter Date Sequence Insurance Name Policy Number Policy Solano Covered Member ID Solano Member ID Guarantor Name 07/26/2024 2 [facility] [id number] Mehdi Duranczak [id number] Mehdi Milan Carlton 07/26/2024 1 MEDICARE B-[place]: [facility] Mehdi Duranczak [id number] Mehdi Milan Carlton Notes Date Note Type Note Provider Name and Address Organization Details Recorded Time 07/26/2024 text/html Pt reports that he is doing well overall. Pt notes that he feels that doing ER to a 90-90 position is getting easier. Pt says that he didn't have any soreness following his last visit. ADI LUKE, ROSEYT [address], [place], [address], [facility] 07/28/2024 13:58:25 07/28/2024 text/html Pt reprots that he continues to do well and that he still sees some progress. Pt says that things like reaching overhead continue to improve. ADI LUKE, CAROLYN [address], [place], [address], [facility] 07/31/2024 22:05:00
--- OUTSIDE RECORDS SUMMARY | 2024-09-14 22:44 | XMS_ITS | Continuity of Care Document ---
Author Organization [place] - [facility] Address [address] [place] [address] Care Team Providers Care Airplane Rental Clerk Name Role Phone ELIZABETH WESLEY Referring Provider Assessment Encounter Date Assessment Date Assessment LastModified by Organization Details LastModified Time 07/01/2024 07/01/2024 NMES parameters: 5/5 on/off, 50% duty cycle, 50BPS Assessment: Pt able to do all movements without increase in symptoms. Pt noted fatigue in the anterior shoulder and periscapular muscles. Pt needed verbal cues on occasion to correct upper trap compensation and improve lower and mid trap activation. Plan: 2x a week for 6 week. Congolese NMES w/ strengthening activities. [email or web address] Not available 07/03/2024 20:02:56 Plan of Treatment Reminders Order Date Submit Date Provider Last Modified By Organization Details Last Modified Time Details Appointments PT ANY 30 2023 03:00P M ADI LUKE DPT Not available Not available Not available PT INITIAL EVAL 2024 03:00P M Savita Garcia, WATERSHED MANAGER Not available Not available Not available PT FOLLOW-U P 2024 03:00P M Savita Garcia, WATERSHED MANAGER Not available Not available Not available PT FOLLOW-U P 2024 03:00P M Savita Garcia, WATERSHED MANAGER Not available Not available Not available PT FOLLOW-U P 2024 03:00P M Savita Garcia, WATERSHED MANAGER Not available Not available Not available PT FOLLOW-U P 2024 03:00P M Savita Garcia, WATERSHED MANAGER Not available Not available Not available PT FOLLOW-U P 2024 03:00P M Savita Garcia, WATERSHED MANAGER Not available Not available Not available PT FOLLOW-U P 2024 03:00P M Savita Garcia, WATERSHED MANAGER Not available Not available Not available PT FOLLOW-U P 2024 03:00P M Savita Garcia, WATERSHED MANAGER Not available Not available Not available Lab None recorded . Referral None recorded . Procedures None recorded . Surgeries None recorded . Imaging None recorded . Medication Orders None recorded . Patient Targets Encounter Date Encounter Id Patient Goals Patient Target Last Modified By Organization Details Last Modified Time 07/01/2024 [id number] USP goal of Right Shoulder Strength -[id number] Not available Not available Not available long term care phlebotomist goal of Right Shoulder Strength -[id number] Not available Not available Not available long term care phlebotomist goal of Right Shoulder Strength -[id number] Not available Not available Not available 3 weeks of Sleeping -[id number] Not available Not available Not available 3 weeks of Overall ADL's NOTE Not available Not available Not available long term care phlebotomist goal of Overall ADL's -[id number] Not available Not available Not available USP goal of Reaching NOTE Not available Not available Not available long term care phlebotomist goal of Lifting -[id number] Not available Not available Not available 3 weeks of Pain NOTE Not available Not available Not available long term care phlebotomist goal of Pain NOTE Not available Not available Not available Patient InstructionsNo instructions recorded. Reason for Referral None Reported. Procedures Surgical History Date Name Laterality Status Provider Name and Address Organization Details Recorded Time 4 77733 Therapeutic Exercise (1:1) completed ADI LUKE DPT [address], [place], [address], [facility] 05/25/2024 22:30:29 4 81960 Therapeutic Exercise (1:1) completed ADI LUKE DPT [address], [place], [address], [facility] 05/15/2024 19:00:39 4 46158 Therapeutic Exercise (1:1) completed ROSEY CURRIET [address], [place], [address], [facility] 05/10/2024 14:13:34 4 73983 Therapeutic Exercise (1:1) completed ADI MARLY, DPT [address], [place], [address], [facility] 05/06/2024 09:30:20 4 24348 Therapeutic Exercise (1:1) completed ADI VALDOVINOSE, DPT [address], [place], [address], [facility] 04/29/2024 15:35:43 4 99620 Therapeutic Exercise (1:1) completed ADI VALDOVINOSE, DPT [address], [place], [address], [facility] 04/26/2024 15:40:11 4 14673 Therapeutic Exercise (1:1) completed ADI LUKE, DPT [address], [place], [address], [facility] 04/24/2024 18:36:24 4 10988 Therapeutic Exercise (1:1) completed ADI VALDOVINOSE, DPT [address], [place], [address], [facility] 04/20/2024 08:02:00 4 18090: Manual therapy completed ADI LUKE, DPT [address], [place], [address], [facility] 04/20/2024 08:02:14 4 66258 Therapeutic Exercise (1:1) completed ADI LUKE, DPT [address], [place], [address], [facility] 04/12/2024 16:54:43 4 23040 Therapeutic Exercise (1:1) completed ADI LUKE, DPT [address], [place], [address], [facility] 04/10/2024 21:14:32 4 66374 Therapeutic Exercise (1:1) completed ADI LUKE, DPT [address], [place], [address], [facility] 04/05/2024 18:44:20 4 76084 Therapeutic Exercise (1:1) completed ADI LUKE, DPT [address], [place], [address], [facility] 04/03/2024 20:11:04 4 02869 Therapeutic Exercise (1:1) completed ADI LUKE, DPT [address], [place], [address], [facility] 03/30/2024 08:23:10 4 94927 Therapeutic Exercise (1:1) completed ADI LUKE, DPT [address], [place], [address], [facility] 03/27/2024 23:05:31 4 79704 Therapeutic Exercise (1:1) completed ADI LUKE, DPT [address], [place], [address], [facility] 03/24/2024 07:44:55 4 74475 Therapeutic Exercise (1:1) completed ADI LUKE, DPT [address], [place], [address], [facility] 03/17/2024 16:53:43 4 28830 Therapeutic Exercise (1:1) completed ADI LUKE, DPT [address], [place], [address], [facility] 03/15/2024 21:42:53 4 85713 Therapeutic Exercise (1:1) completed ADI LUKE, DPT [address], [place], [address], [facility] 03/11/2024 15:23:42 4 24849 Therapeutic Exercise (1:1) completed ADI LUKE, DPT [address], [place], [address], [facility] 03/04/2024 11:54:05 4 45548 Therapeutic Exercise (1:1) completed ADI VALDOVINOSE, DPT [address], [place], [address], [facility] 03/03/2024 08:14:46 4 67982 Therapeutic Exercise (1:1) completed ADI LUKE, DPT [address], [place], [address], [facility] 02/24/2024 13:47:11 4 05697 Therapeutic Exercise (1:1) completed ADI LUKE, DPT [address], [place], [address], [facility] 02/23/2024 10:20:06 4 21737 Therapeutic Exercise (1:1) completed ADI LUKE, DPT [address], [place], [address], [facility] 02/19/2024 12:42:15 4 66606: Low complexity PT Eval completed ADI LUKE, DPT [address], [place], [address], [facility] 02/19/2024 12:42:20 4 G8419 BMI Outside Normal Parameters, F/U not Documented completed ADI LUKE, DPT [address], [place], [address], [facility] 02/19/2024 12:45:35 4 G8427 Current Medication Documented completed ADI LUKE, DPT [address], [place], [address], [facility] 02/19/2024 12:45:40 Imaging [...] Diagnosis/Indication Diagnosis SNOMED-CT Code Diagnosis ICD10 Code [id number] CAROLYN CURRIE PT [address] [place] [address] 05/31/2024 10:39:06 05/31/2024 11:38:07 Muscle atrophy 56558533 M62.50 [id number] CAROLYN CURRIE PT [address] [place] [address] 06/07/2024 10:23:57 06/07/2024 15:35:33 Muscle atrophy 69008565 M62.50 [id number] CAROLYN CURRIE PT [address] [place] [address] 06/10/2024 12:49:32 06/10/2024 14:11:12 Muscle atrophy 45787432 M62.50 [id number] CAROLYN CURRIE PT [address] [place] [address] 06/21/2024 14:58:11 06/21/2024 16:18:26 Muscle atrophy 08831646 M62.50 [id number] CAROLYN CURRIE PT [address] [place] [address] 06/24/2024 15:22:18 06/24/2024 16:07:12 Muscle atrophy 69231662 M62.50 [id number] CAROLYN CURRIElow PT [address] [place] [address] 06/28/2024 11:56:06 06/28/2024 13:21:44 Muscle atrophy 91653743 M62.50 [id number] CAROLYN CURRIElow PT [address] [place] [address] 07/01/2024 13:48:59 07/01/2024 15:05:45 Muscle atrophy 46902165 M62.50 Health Concerns Section Related Observation LastModified by Organization Detai ls LastModified Time None Recorded Concern Status LastModified by Organization Details LastModified Time None Recorded Payers Encounter Date Sequence Insurance Name Policy Number Policy Solano Covered Member ID Solano Member ID Guarantor Name 07/01/2024 2 [facility] [id number] Mehdi Vincent [id number] Mehdi Vincent 07/01/2024 1 [place]ICARE [place]: [facility] [employer] Mehdi Vincent [id number] Mehdi Vincent Notes Date Note Type Note Provider Name and Address Organization Details Recorded Time 07/01/2024 text/html Pt reports that he continues to do well and feels that he is getting a little more muscle mass and functional strength back. ADI LUKE, DPT [address], [place], [address], [facility] 07/03/2024 20:04:43
--- OUTSIDE RECORDS SUMMARY | 2024-09-14 22:44 | XMS_ITS | Continuity of Care Document ---
Author Organization [place] - [facility] [place] PT Address [address] [place] [address] Care Team Providers Care Machine Sprayer Name Role Phone ELIZABETH WESLEY Referring Provider [phone] Assessment Encounter Date Assessment Date Assessment LastModified by Organization Details LastModified Time 06/21/2024 06/21/2024 NMES parameters: 5/5 on/off, 50% duty cycle, 50BPS Assessment: Pt able to do all exercise without an increase in discomfort. Pt noted some fatigue but still able to complete full volume of exercise. Some upper trap compensation still apparent but has reduced as time has gone on. Plan: 2x a week for 6 week. Venezuelan NMES w/ strengthening activities. [email or web address] Not available 06/21/2024 15:32:30 Plan of Treatment Reminders Order Date Submit Date Provider Last Modified By Organization Details Last Modified Time Details Appointments PT ANY 30 2023 03:00P M ADI LUKE DPT Not available Not available Not available PT INITIAL EVAL 2024 03:00P M Savita Garcia, CORPORATION OFFICER Not available Not available Not available PT FOLLOW-U P 2024 03:00P M Savita Garcia, CORPORATION OFFICER Not available Not available Not available PT FOLLOW-U P 2024 03:00P M Savita Garcia, CORPORATION OFFICER Not available Not available Not available PT FOLLOW-U P 2024 03:00P M Savita Garcia, CORPORATION OFFICER Not available Not available Not available PT FOLLOW-U P 2024 03:00P M Savita Garcia, CORPORATION OFFICER Not available Not available Not available PT FOLLOW-U P 2024 03:00P M Savita Garcia, CORPORATION OFFICER Not available Not available Not available PT FOLLOW-U P 2024 03:00P M Savita Radha, CORPORATION OFFICER Not available Not available Not available PT FOLLOW-U P 2024 03:00P M Savita Radha, CORPORATION OFFICER Not available Not available Not available Lab None recorded . Referral None recorded . Procedures None recorded . Surgeries None recorded . Imaging None recorded . Medication Orders None recorded . Patient Targets Encounter Date Encounter Id Patient Goals Patient Target Last Modified By Organization Details Last Modified Time 06/21/2024 [id number] intermediate accountant goal of Right Shoulder Strength -[id number] Not available Not available Not available senior living goal of Right Shoulder Strength -[id number] Not available Not available Not available intermediate accountant goal of Right Shoulder Strength -[id number] Not available Not available Not available 3 weeks of Sleeping -819102 Not available Not available Not available 3 weeks of Overall ADL's NOTE Not available Not available Not available intermediate accountant goal of Overall ADL's -[id number] Not available Not available Not available senior living goal of Reaching NOTE Not available Not available Not available senior living goal of Lifting -[id number] Not available Not available Not available 3 weeks of Pain NOTE Not available Not available Not available senior living goal of Pain NOTE Not available Not available Not available Patient InstructionsNo instructions recorded. Reason for Referral None Reported. Procedures Surgical History Date Name Laterality Status Provider Name and Address Organization Details Recorded Time 4 47740 Therapeutic Exercise (1:1) completed ADI LUKE DPT [address], [place], [address], [facility] 05/25/2024 22:30:29 4 33791 Therapeutic Exercise (1:1) completed ROSEY CURRIET [address], [place], [address], [facility] 05/15/2024 19:00:39 4 44176 Therapeutic Exercise (1:1) completed ROSEY CURRIET [address], [place], [address], [facility] 05/10/2024 14:13:34 4 64937 Therapeutic Exercise (1:1) completed ADI MARLY, DPT [address], [place], [address], [facility] 05/06/2024 09:30:20 4 29406 Therapeutic Exercise (1:1) completed ADI LUKE, DPT [address], [place], [address], [facility] 04/29/2024 15:35:43 4 54564 Therapeutic Exercise (1:1) completed ADI LUKE, DPT [address], [place], [address], [facility] 04/26/2024 15:40:11 4 11667 Therapeutic Exercise (1:1) completed ADI LUKE, DPT [address], [place], [address], [facility] 04/24/2024 18:36:24 4 83872 Therapeutic Exercise (1:1) completed ADI LUKE, DPT [address], [place], [address], [facility] 04/20/2024 08:02:00 4 82370: Manual therapy completed ADI LUKE, DPT [address], [place], [address], [facility] 04/20/2024 08:02:14 4 60131 Therapeutic Exercise (1:1) completed ADI LUKE, DPT [address], [place], [address], [facility] 04/12/2024 16:54:43 4 34954 Therapeutic Exercise (1:1) completed ADI LUKE, DPT [address], [place], [address], [facility] 04/10/2024 21:14:32 4 58317 Therapeutic Exercise (1:1) completed ADI LUKE, DPT [address], [place], [address], [facility] 04/05/2024 18:44:20 4 19427 Therapeutic Exercise (1:1) completed ADI MARLY, DPT [address], [place], [address], [facility] 04/03/2024 20:11:04 4 58361 Therapeutic Exercise (1:1) completed ADI MARLY, DPT [address], [place], [address], [facility] 03/30/2024 08:23:10 4 90721 Therapeutic Exercise (1:1) completed ADI LUKE, DPT [address], [place], [address], [facility] 03/27/2024 23:05:31 4 66725 Therapeutic Exercise (1:1) completed ADI VALDOVINOSE, DPT [address], [place], [address], [facility] 03/24/2024 07:44:55 4 68615 Therapeutic Exercise (1:1) completed ADI VALDOVINOSE, DPT [address], [place], [address], [facility] 03/17/2024 16:53:43 4 36984 Therapeutic Exercise (1:1) completed ADI VALDOVINOSE, DPT [address], [place], [address], [facility] 03/15/2024 21:42:53 4 45133 Therapeutic Exercise (1:1) completed ADI MARLY, DPT [address], [place], [address], [facility] 03/11/2024 15:23:42 4 23093 Therapeutic Exercise (1:1) completed ADI MARLY, DPT [address], [place], [address], [facility] 03/04/2024 11:54:05 4 26781 Therapeutic Exercise (1:1) completed ADI LUKE, DPT [address], [place], [address], [facility] 03/03/2024 08:14:46 4 15494 Therapeutic Exercise (1:1) completed ADI LUKE, DPT [address], [place], [address], [facility] 02/24/2024 13:47:11 4 32696 Therapeutic Exercise (1:1) completed ADI LUKE, DPT [address], [place], [address], [facility] 02/23/2024 10:20:06 4 49637 Therapeutic Exercise (1:1) completed ADI LUKE, DPT [address], [place], [address], [facility] 02/19/2024 12:42:15 4 05948: Low complexity PT Eval completed ADI LUKE, DPT [address], [place], [address], [facility] 02/19/2024 12:42:20 4 G8419 BMI Outside Normal Parameters, F/U not Documented completed ADI LUKE DPT [address], [place], [address], [facility] 02/19/2024 12:45:35 4 G8427 Current Medication Documented completed ADI LUKE, DPT [address], [place], [address], [facility] 02/19/2024 12:45:40 [...] Diagnosis/Indication Diagnosis SNOMED-CT Code Diagnosis ICD10 Code [id number] CAROLYN CURRIE PT [address] [place] [address] 05/24/2024 11:21:08 05/24/2024 12:35:32 Muscle atrophy 22793854 M62.50 [id number] CAROLYN CURRIE PT [address] [place] [address] 05/27/2024 14:28:33 05/27/2024 15:59:03 Muscle atrophy 31340207 M62.50 [id number] CAROLYN CURRIE PT [address] [place] [address] 05/31/2024 10:39:06 05/31/2024 11:38:07 Muscle atrophy 63678515 M62.50 [id number] CAROLYN CURRIE PT [address] [place] [address] 06/07/2024 10:23:57 06/07/2024 15:35:33 Muscle atrophy 37198270 M62.50 [id number] CAROLYN CURRIE PT [address] [place] [address] 06/10/2024 12:49:32 06/10/2024 14:11:12 Muscle atrophy 15050174 M62.50 [id number] CAROLYN CURRIElow PT [address] [place] [address] 06/21/2024 14:58:11 06/21/2024 16:18:26 Muscle atrophy 49258714 M62.50 Health Concerns Section Related Observation LastModified by Organization Detai ls LastModified Time None Recorded Concern Status LastModified by Organization Details LastModified Time None Recorded Payers Encounter Date Sequence Insurance Name Policy Number Policy Solano Covered Member ID Solano Member ID Guarantor Name 06/21/[address] [place] [address] [id number] Mehdi Milan Carlton [id number] Mehdi Milan Carlton 06/21/2024 1 MEDICARE [place]: [employer] Mehdi Duranczak [id number] Mehdi Milan Carlton Notes Date Note Type Note Provider Name and Address Organization Details Recorded Time 06/21/2024 text/html Pt reports that he was on vacation last week and that he was not very consistent with exercises and felt that he was not able to lift his arm as well. Pt says that he does feel that he doesn't get as fatigued at the gym though. ADI LUKE, DPT [address] [facility] [address], [place], [address], [facility] [place] [facility] 06/23/2024 07:56:01
--- OUTSIDE RECORDS SUMMARY | 2024-09-14 22:44 | XMS_ITS | Continuity of Care Document ---
Author Organization [place] - [facility] [place] [facility] Address [address] [place] [address] Care Team Providers Care Upfitter Name Role Phone ELIZABETH WESLEY Referring Provider [phone] Assessment Encounter Date Assessment Date Assessment LastModified by Organization Details LastModified Time 06/28/2024 06/28/2024 NMES parameters: 5/5 on/off, 50% duty cycle, 50BPS Assessment: Pt able to do all movements without increase in symptoms. Pt noted fatigue in the anterior shoulder and periscapular muscles. Pt needed verbal cues on occasion to correct upper trap compensation and improve lower and mid trap activation. Plan: 2x a week for 6 week. Martiniquais NMES w/ strengthening activities. [email or web address] Not available 06/28/2024 12:46:47 Plan of Treatment Reminders Order Date Submit Date Provider Last Modified By Organization Details Last Modified Time Details Appointments PT ANY 30 2023 03:00P M ADI LUKE DPT Not available Not available Not available PT INITIAL EVAL 2024 03:00P M Savita Garcia, RECORD PRESSMAN Not available Not available Not available PT FOLLOW-U P 2024 03:00P M Savita Garcia, RECORD PRESSMAN Not available Not available Not available PT FOLLOW-U P 2024 03:00P M Savita Garcia, RECORD PRESSMAN Not available Not available Not available PT FOLLOW-U P 2024 03:00P M Savita Garcia, RECORD PRESSMAN Not available Not available Not available PT FOLLOW-U P 2024 03:00P M Savita Garcia, RECORD PRESSMAN Not available Not available Not available PT FOLLOW-U P 2024 03:00P M Savita Garcia, RECORD PRESSMAN Not available Not available Not available PT FOLLOW-U P 2024 03:00P M Savita Garcia, RECORD PRESSMAN Not available Not available Not available PT FOLLOW-U P 2024 03:00P M Savita Garcia, RECORD PRESSMAN Not available Not available Not available Lab None recorded . Referral None recorded . Procedures None recorded . Surgeries None recorded . Imaging None recorded . Medication Orders None recorded . Patient Targets Encounter Date Encounter Id Patient Goals Patient Target Last Modified By Organization Details Last Modified Time 06/28/2024 [id number] prison goal of Right Shoulder Strength -[id number] Not available Not available Not available extermination inspector goal of Right Shoulder Strength -[id number] Not available Not available Not available extermination inspector goal of Right Shoulder Strength -[id number] Not available Not available Not available 3 weeks of Sleeping -[id number] Not available Not available Not available 3 weeks of Overall ADL's NOTE Not available Not available Not available extermination inspector goal of Overall ADL's -[id number] Not available Not available Not available prison goal of Reaching NOTE Not available Not available Not available extermination inspector goal of Lifting -[id number] Not available Not available Not available 3 weeks of Pain NOTE Not available Not available Not available extermination inspector goal of Pain NOTE Not available Not available Not available Patient InstructionsNo instructions recorded. Reason for Referral None Reported. Procedures Surgical History Date Name Laterality Status Provider Name and Address Organization Details Recorded Time 4 23581 Therapeutic Exercise (1:1) completed ADI LUKE DPT [address], [place], [address], [facility] 05/25/2024 22:30:29 4 93639 Therapeutic Exercise (1:1) completed ADI LUKE DPT [address], [place], [address], [facility] 05/15/2024 19:00:39 4 15751 Therapeutic Exercise (1:1) completed ROSEY CURRIET [address], [place], [address], [facility] 05/10/2024 14:13:34 4 04081 Therapeutic Exercise (1:1) completed ADI MARLY, DPT [address], [place], [address], [facility] 05/06/2024 09:30:20 4 34324 Therapeutic Exercise (1:1) completed ADI VALDOVINOSE, DPT [address], [place], [address], [facility] 04/29/2024 15:35:43 4 30562 Therapeutic Exercise (1:1) completed ADI VALDOVINOSE, DPT [address], [place], [address], [facility] 04/26/2024 15:40:11 4 33716 Therapeutic Exercise (1:1) completed ADI LUKE, DPT [address], [place], [address], [facility] 04/24/2024 18:36:24 4 57851 Therapeutic Exercise (1:1) completed ADI VALDOVINOSE, DPT [address], [place], [address], [facility] 04/20/2024 08:02:00 4 01221: Manual therapy completed ADI LUKE, DPT [address], [place], [address], [facility] 04/20/2024 08:02:14 4 42243 Therapeutic Exercise (1:1) completed ADI LUKE, DPT [address], [place], [address], [facility] 04/12/2024 16:54:43 4 50579 Therapeutic Exercise (1:1) completed ADI LUKE, DPT [address], [place], [address], [facility] 04/10/2024 21:14:32 4 96996 Therapeutic Exercise (1:1) completed ADI LUKE, DPT [address], [place], [address], [facility] 04/05/2024 18:44:20 4 08718 Therapeutic Exercise (1:1) completed ADI LUKE, DPT [address], [place], [address], [facility] 04/03/2024 20:11:04 4 24808 Therapeutic Exercise (1:1) completed ADI LUKE, DPT [address], [place], [address], [facility] 03/30/2024 08:23:10 4 13669 Therapeutic Exercise (1:1) completed ADI LUKE, DPT [address], [place], [address], [facility] 03/27/2024 23:05:31 4 99038 Therapeutic Exercise (1:1) completed ADI LUKE, DPT [address], [place], [address], [facility] 03/24/2024 07:44:55 4 14486 Therapeutic Exercise (1:1) completed ADI LUKE, DPT [address], [place], [address], [facility] 03/17/2024 16:53:43 4 38208 Therapeutic Exercise (1:1) completed ADI LUKE, DPT [address], [place], [address], [facility] 03/15/2024 21:42:53 4 65643 Therapeutic Exercise (1:1) completed ADI LUKE, DPT [address], [place], [address], [facility] 03/11/2024 15:23:42 4 12621 Therapeutic Exercise (1:1) completed ADI LUKE, DPT [address], [place], [address], [facility] 03/04/2024 11:54:05 4 31299 Therapeutic Exercise (1:1) completed ADI VALDOVINOSE, DPT [address], [place], [address], [facility] 03/03/2024 08:14:46 4 61447 Therapeutic Exercise (1:1) completed ADI LUKE, DPT [address], [place], [address], [facility] 02/24/2024 13:47:11 4 37397 Therapeutic Exercise (1:1) completed ADI LUKE, DPT [address], [place], [address], [facility] 02/23/2024 10:20:06 4 75805 Therapeutic Exercise (1:1) completed ADI LUKE, DPT [address], [place], [address], [facility] 02/19/2024 12:42:15 4 07264: Low complexity PT Eval completed ADI LUKE, DPT [address], [place], [address], [facility] 02/19/2024 12:42:20 4 G8419 BMI Outside Normal Parameters, F/U not Documented completed ADI LUKE, DPT [address], [place], [address], [facility] 02/19/2024 12:45:35 4 G8427 Current Medication Documented completed ADI LUKE, DPT [address], [place], [address], [facility] 02/19/2024 12:45:40 [...] Diagnosis/Indication Diagnosis SNOMED-CT Code Diagnosis ICD10 Code [id number] CAROLYN CURRIE PT [address] [place] [address] 05/31/2024 10:39:06 05/31/2024 11:38:07 Muscle atrophy 27996231 M62.50 [id number] [facility] PT [address] [place] [address] 06/07/2024 10:23:57 06/07/2024 15:35:33 Muscle atrophy 60824720 M62.50 [id number] [facility] PT [address] [place] [address] 06/10/2024 12:49:32 06/10/2024 14:11:12 Muscle atrophy 47996086 M62.50 [id number] CAROLYN CURRIE PT [address] [place] [address] 06/21/2024 14:58:11 06/21/2024 16:18:26 Muscle atrophy 12385291 M62.50 [id number] CAROLYN CURRIE PT [address] [place] [address] 06/24/2024 15:22:18 06/24/2024 16:07:12 Muscle atrophy 87917318 M62.50 [id number] CAR[facility]YN CURRIE[facility] PT [address] [place] [address] 06/28/2024 11:56:06 06/28/2024 13:21:44 Muscle atrophy 27965986 M62.50 Health Concerns Section Related Observation LastModified by Organization Detai ls LastModified Time None Recorded Concern Status LastModified by Organization Details LastModified Time None Recorded Payers Encounter Date Sequence Insurance Name Policy Number Policy Solano Covered Member ID Solano Member ID Guarantor Name 06/28/2024 [facility] [id number] Mehdi Milan Carlton [id number] Mehdi Milan Carlton 06/28/2024 1 [place]IC[place]: [employer] Mehdi Duranczak [id number] Mehdi Milan Carlton Notes Date Note Type Note Provider Name and Address Organization Details Recorded Time 06/28/2024 text/html Pt reports that he is doing well overall today. Pt says that he feels that his anterior and lateral delt is coming back a bit and he is noticing more muscle bulk in those areas. Pt says that he has been consistent on his gym routine at this time. ADI LUKE, DPT [address] [facility] [address], [place], [address], [facility] 06/28/2024 22:01:59
--- OUTSIDE RECORDS SUMMARY | 2024-09-14 22:44 | XMS_ITS | Continuity of Care Document ---
Author Organization [place] - [facility] [place] [facility] Address [address] [place] [address] Care Team Providers Care Data Storage Specialist Name Role Phone ELIZABETH WESLEY Referring Provider Assessment Encounter Date Assessment Date Assessment LastModified by Organization Details LastModified Time 06/24/2024 06/24/2024 NMES parameters: 5/5 on/off, 50% duty cycle, 50BPS Assessment: Pt able to do all exercise without an increase in discomfort. Pt noted some fatigue but still able to complete full volume of exercise. Some upper trap compensation still apparent but has reduced as time has gone on. Plan: 2x a week for 6 week. Tunisian NMES w/ strengthening activities. [email or web address] Not available 06/26/2024 20:51:01 Plan of Treatment Reminders Order Date Submit Date Provider Last Modified By Organization Details Last Modified Time Details Appointments PT ANY 30 2023 03:00P M ADI LUKE DPT Not available Not available Not available PT INITIAL EVAL 2024 03:00P M Savita Garcia, CONTRACT ASSOCIATE Not available Not available Not available PT FOLLOW-U P 2024 03:00P M Savita Garcia, CONTRACT ASSOCIATE Not available Not available Not available PT FOLLOW-U P 2024 03:00P M Savita Garcia, CONTRACT ASSOCIATE Not available Not available Not available PT FOLLOW-U P 2024 03:00P M Savita Garcia, CONTRACT ASSOCIATE Not available Not available Not available PT FOLLOW-U P 2024 03:00P M Savita Garcia, CONTRACT ASSOCIATE Not available Not available Not available PT FOLLOW-U P 2024 03:00P M Savita Garcia, CONTRACT ASSOCIATE Not available Not available Not available PT FOLLOW-U P 2024 03:00P M Savita Radha, CONTRACT ASSOCIATE Not available Not available Not available PT FOLLOW-U P 2024 03:00P M Savita Radha, CONTRACT ASSOCIATE Not available Not available Not available Lab None recorded . Referral None recorded . Procedures None recorded . Surgeries None recorded . Imaging None recorded . Medication Orders None recorded . Patient Targets Encounter Date Encounter Id Patient Goals Patient Target Last Modified By Organization Details Last Modified Time 06/24/2024 [id number] terminal manager goal of Right Shoulder Strength -[id number] Not available Not available Not available nursing home goal of Right Shoulder Strength -[id number] Not available Not available Not available terminal manager goal of Right Shoulder Strength -[id number] Not available Not available Not available 3 weeks of Sleeping -381736 Not available Not available Not available 3 weeks of Overall ADL's NOTE Not available Not available Not available terminal manager goal of Overall ADL's -[id number] Not available Not available Not available nursing home goal of Reaching NOTE Not available Not available Not available nursing home goal of Lifting -[id number] Not available Not available Not available 3 weeks of Pain NOTE Not available Not available Not available nursing home goal of Pain NOTE Not available Not available Not available Patient InstructionsNo instructions recorded. Reason for Referral None Reported. Procedures Surgical History Date Name Laterality Status Provider Name and Address Organization Details Recorded Time 4 18628 Therapeutic Exercise (1:1) completed ADI LUKE DPT [address], [place], [address], [facility] 05/25/2024 22:30:29 4 79010 Therapeutic Exercise (1:1) completed ROSEY CURRIET [address], [place], [address], [facility] 05/15/2024 19:00:39 4 76166 Therapeutic Exercise (1:1) completed ROSEY CURRIET [address], [place], [address], [facility] 05/10/2024 14:13:34 4 30326 Therapeutic Exercise (1:1) completed ADI MARLY, DPT [address], [place], [address], [facility] 05/06/2024 09:30:20 4 17572 Therapeutic Exercise (1:1) completed ADI LUKE, DPT [address], [place], [address], [facility] 04/29/2024 15:35:43 4 81694 Therapeutic Exercise (1:1) completed ADI LUKE, DPT [address], [place], [address], [facility] 04/26/2024 15:40:11 4 34424 Therapeutic Exercise (1:1) completed ADI LUKE, DPT [address], [place], [address], [facility] 04/24/2024 18:36:24 4 75260 Therapeutic Exercise (1:1) completed ADI LUKE, DPT [address], [place], [address], [facility] 04/20/2024 08:02:00 4 46800: Manual therapy completed ADI LUKE, DPT [address], [place], [address], [facility] 04/20/2024 08:02:14 4 46205 Therapeutic Exercise (1:1) completed ADI LUKE, DPT [address], [place], [address], [facility] 04/12/2024 16:54:43 4 47139 Therapeutic Exercise (1:1) completed ADI LUKE, DPT [address], [place], [address], [facility] 04/10/2024 21:14:32 4 11820 Therapeutic Exercise (1:1) completed ADI LUKE, DPT [address], [place], [address], [facility] 04/05/2024 18:44:20 4 99515 Therapeutic Exercise (1:1) completed ADI MARLY, DPT [address], [place], [address], [facility] 04/03/2024 20:11:04 4 60706 Therapeutic Exercise (1:1) completed ADI MARLY, DPT [address], [place], [address], [facility] 03/30/2024 08:23:10 4 52255 Therapeutic Exercise (1:1) completed ADI LUKE, DPT [address], [place], [address], [facility] 03/27/2024 23:05:31 4 58346 Therapeutic Exercise (1:1) completed ADI VALDOVINOSE, DPT [address], [place], [address], [facility] 03/24/2024 07:44:55 4 05399 Therapeutic Exercise (1:1) completed ADI VALDOVINOSE, DPT [address], [place], [address], [facility] 03/17/2024 16:53:43 4 85633 Therapeutic Exercise (1:1) completed ADI VALDOVINOSE, DPT [address], [place], [address], [facility] 03/15/2024 21:42:53 4 79932 Therapeutic Exercise (1:1) completed ADI MARLY, DPT [address], [place], [address], [facility] 03/11/2024 15:23:42 4 82872 Therapeutic Exercise (1:1) completed ADI MARLY, DPT [address], [place], [address], [facility] 03/04/2024 11:54:05 4 58169 Therapeutic Exercise (1:1) completed ADI LUKE, DPT [address], [place], [address], [facility] 03/03/2024 08:14:46 4 05148 Therapeutic Exercise (1:1) completed ADI LUKE, DPT [address], [place], [address], [facility] 02/24/2024 13:47:11 4 40514 Therapeutic Exercise (1:1) completed ADI LUKE, DPT [address], [place], [address], [facility] 02/23/2024 10:20:06 4 53973 Therapeutic Exercise (1:1) completed ADI LUKE, DPT [address], [place], [address], [facility] 02/19/2024 12:42:15 4 91187: Low complexity PT Eval completed ADI LUKE, DPT [address], [place], [address], [facility] 02/19/2024 12:42:20 4 G8419 BMI Outside Normal Parameters, F/U not Documented completed ADI LUKE DPT [address], [place], [address], [facility] 02/19/2024 12:45:35 4 G8427 Current Medication Documented completed ADI LUKE, DPT [address], [place], [address], [facility] 02/19/2024 12:45:40 Imaging [...] Diagnosis/Indication Diagnosis SNOMED-CT Code Diagnosis ICD10 Code [id number] CAROLYN CURRIE PT [address] [place] [address] 05/24/2024 11:21:08 05/24/2024 12:35:32 Muscle atrophy 21348524 M62.50 [id number] CAROLYN CURRIE PT [address] [place] [address] 05/27/2024 14:28:33 05/27/2024 15:59:03 Muscle atrophy 23873912 M62.50 [id number] CAROLYN CURRIE PT [address] [place] [address] 05/31/2024 10:39:06 05/31/2024 11:38:07 Muscle atrophy 05791349 M62.50 [id number] CAROLYN CURRIE PT [address] [place] [address] 06/07/2024 10:23:57 06/07/2024 15:35:33 Muscle atrophy 33075421 M62.50 [id number] CAROLYN CURRIE PT [address] [place] [address] 06/10/2024 12:49:32 06/10/2024 14:11:12 Muscle atrophy 55066085 M62.50 [id number] [facility] PT [address] [place] [address] 06/21/2024 14:58:11 06/21/2024 16:18:26 Muscle atrophy 04747329 M62.50 [id number] [facility] PT [address] [place] [address] 06/24/2024 15:22:18 06/24/2024 16:07:12 Muscle atrophy 87871688 M62.50 Health Concerns Section Related Observation LastModified by Organization Detai ls LastModified Time None Recorded Concern Status LastModified by Organization Details LastModified Time None Recorded Payers Encounter Date Sequence Insurance Name Policy Number Policy Solano Covered Member ID Solano Member ID Guarantor Name 06/24/2024 2 [facility] [id number] Mehdi Milan Carlton [id number] Mehdi Milan Carlton 06/24/2024 1 MEDICARE [place]: [facility] [employer] Mehdi Milan Carlton [id number] Mehdi Vincent Notes Date Note Type Note Provider Name and Address Organization Details Recorded Time 06/24/2024 text/html Pt reports that he is doing well today. Pt says that he continues to do his exercises at the gym and that he feels that he is regaining a little bit of musculature on his lateral and anterior arm. ADI LUKE, DPT [address], [place], [address], [facility] 06/26/2024 20:53:13
== END 2024-09-14 06:54 | disposition home or self-care (01) ==
LOC: HO.LAB 06:53
PROVIDERS: PCP Internal Medicine; Visit Provider Internal Medicine
DX: M54.50 Low back pain, unspecified (principal); G89.29 Other chronic pain; Z13.220 Encounter for screening for lipoid disorders; Z13.1 Encounter for screening for diabetes mellitus; Z12.5 Encounter for screening for malignant neoplasm of prostate
CPT/HCPCS: 36415; 80053; 80061; 81003; 83036; 84153; 84443; 85025

== ENCOUNTER 2025-07-26 15:18 | Outpatient (REF) | payer MEDICARE, OTHER, SELFPAY ==
--- NOTE | ~2025-07-26 | XR_ITS ---
EXAMINATION: XR SHOULDER 2 OR MORE VIEWS BILATERAL HISTORY: PAIN COMPARISON: Comparison is made with the prior examination of the right shoulder dated 04/24/2023. FINDINGS: Eight views of the bilateral shoulders are submitted. Osseous mineralization is normal. There is no fracture or dislocation. The glenohumeral joints are maintained. There is severe osteoarthritis of the bilateral AC joints with joint space narrowing and osteophyte formation. The soft tissues are unremarkable. 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 Electronically signed by: Dejon Valencia MD 07/26/2025 03:44 PM EDT
--- OUTSIDE RECORDS SUMMARY | 2025-07-26 21:33 | XMS_ITS | Encounter Summary ---
Author Organization [facility] Address [address] [place] [address] Phone Care Team Providers Care Rotary Driller Prospecting Name Role Phone Donald Pérez MD Unavailable [phone] Donald Pérez MD Primary Care Provider [phone] Donald Pérez MD Unavailable [phone] Nino Mullins MD Unavailable [phone] Daniel Toure MD Unavailable Encounter Details Date Type Department Care Team (Late st Contact Info) Description 07/21/2023 Transcribe Orders [facility] Laboratory [address], [place] [id number] Donald Pérez MD [address], [place] [id number] [email or web address] Social History Tobacco Use Types Packs/Day Years Used Date Smoking Tobacco: Never Smokeless Tobacco: Never Alcohol Use Standard Drinks/Week Comments No 0 (1 standard drink = 0.6 oz pur e alcohol) Education Answer Date Recorded Are you interested in more education? Not on contreras e 01/29/2023 Are you concerned about learning? Not on file 01/29/2023 No 01/29/2023 No 01/29/2023 Digital Access Answer Date Recorded No 02/24/2023 No 02/24/2023 Reliable internet access at home? Not on file 02/24/2023 Device with a working camera? Not on file Sex and Gender Information Value Date Recorded Sex Assigned at Male 06/18/2023 10:17 AM EDT Legal Sex Male 9:55 PM EDT Gender Identity Male 06/18/2023 10:17 AM EDT Sexual Orientation Straight 06/18/2023 10 :17 AM EDT documented as of this encounter Plan of Treatment Upcoming Encounters Date Type Department Care Team (Late st Contact Info) Description 01/05/2026 4:00 PM EDT Office Visit [facility] Internal Medicine [address], [place] [id number] Donald Pérez MD [address] [place] [address] [email or web address] documented as of this encounter Visit Diagnoses Not on filedocumented in this encounter Additional Health Concerns Infection Onset Date Last Indicated Resolved Time CDiff-Risk 04/03/2025 04/06/2025 04/06/2025 6:55 PM EDT Assessment Noted Time PHQ-2 Depression Total Score: 0 07/14/20 1:24 PM EDT documented as of this encounter Care Teams Rotary Driller Prospecting Relationship Specialty Start Date End Date Donald Pérez MD [address] [place] [address] PCP - General Internal Medicine 12/06/19 Donald Pérez MD [address] [place] [address] Historical LMR Provider 07/26/17 09/15/23 Donald Pérez MD [address] [place] [address] [email or web address] Insurance Assigned Provider 01/09/24 Nino Mullins MD [address] [address] Neurosurgery 09/16/23 Daniel Toure MD 22 [facility], [address] [place] [address] [email or web address] Neurology 01/05/24 documented as of this encounter Additional Source Comments The information contained in this document represents components of the legal health record. It is not the complete legal health record.[facility]
--- OUTSIDE RECORDS SUMMARY | 2025-07-26 21:33 | XMS_ITS | Encounter Summary ---
Author Organization [facility] Address [address] [facility] [address] [place] [phone] Phone Care Team Providers Care Cow Rider Name Role Phone Donald Pérez MD Unavailable Donald Pérez MD Primary Care Provider [phone] Donald Pérez MD Unavailable [phone] Nino Mullins MD Unavailable [phone] Daniel Toure MD Unavailable Encounter Details Date Type Department Care Team (Latest Contact Info) Description 06/26/2023 Prep for Surgery [facility] Orthopedics [address] [address] Herrera Virgen MD [address] [place] [id number] [email or web address] Cervical stenosis of spine (Primary Dx); Cervical radiculopathy; Cervical spondylosis Social History Tobacco Use Types Packs/Day Years [...] Description 01/05/2026 4:00 PM EDT Office Visit [facility] Internal Medicine [address] [place] [address] Donald Pérez MD [address] [place] [address] documented as of this encounter Visit Diagnoses Diagnosis Cervical stenosis of spine- Primary Spinal stenosis in cervical region Cervical radiculopathy Brachial neuritis or radiculitis nos Cervical spondylosis Cervical spondylosis without myelopathy documented in this encounter Additional Health Concerns Infection Onset Date Last Indicated Resolved Time CDiff-Risk 04/03/2025 04/06/2025 04/06/2025 6:55 PM EDT Assessment Noted Time PHQ-2 Depression Total Score: 0 07/14/20 22 9:37 AM EDT documented as of this encounter Care Teams Cow Rider Relationship Specialty Start Date End Date Donald Pérez MD [address] [place] [address] PCP - General Internal Medicine 12/06/19 Donald Pérez MD [address] [place] [address] Historical LMR Provider 07/26/17 09/15/23 Donald Pérez MD [address] [place] [address] [email or web address] Insurance Assigned Provider 01/09/24 Nino Mullins MD [address] [address] Neurosurgery 09/16/23 Daniel Toure MD [address] [facility], 2nd [place] [address] [email or web address] Neurology 01/05/24 documented as of this encounter Additional Source Comments The information contained in this document represents components of the legal health record. It is not the complete legal health record.[facility]
--- OUTSIDE RECORDS SUMMARY | 2025-07-26 21:34 | XMS_ITS | Patient Health Record ---
[facility] Address [address] [facility] [place] [address] Care Team Providers Care Channel Marketing Coordinator Name Role Phone Donald Pérez MD Primary Care Provider Unavaila Josiah Ureña Unavailable [phone] Erwin Becker Unavailable [phone] Allergies Allergen (clinical drug ingredient) Drug/Non Drug Allergy documented on EMR Reaction Allergy Type Onset Date Status amoxicillin Amoxicillin Unknown Drug Allergy Act elmer Diclofenac Unknown Drug Allergy Active Reason For Referral No Information Medications Medication SIG (Take, Route, Fr equency, Duration) Notes Start Date End Date Status Ammonium Lactate 12 % 1 application Exte rnally to affected areas of dry skin to feet except for between the toes Twice a day; Duration: 30 days Active Gabapentin 100 MG 6 daily Orally Once a day Active Immunizations Vaccine Route Administration Date Status Comme nts Influenza Unknown 05/03/2025 Refused Social History Tobacco Use: Social History Observation Description Date Details (start date - stop date) Never Smoker NA - NA Tobacco use other than smoking: Question Answer Notes Are you an other tobacco user? No Tobacco Control (Standard) Question Answer Notes Tobacco use: Nonsmoker Additional Findings: Tobacco non-user Current no nsmoker AUDIT-C (Standard) Question Answer Notes Did you have a drink containing alcohol in the p ast year? No Points 0 Interpretation Negative Problems Problem Type SNOMED Code ICD Code Onset Dates Problem Status W/U Status Risk Notes Problem Bilateral atherosclerosis of arteries of lower limbs (disorder) (05104383161281122 ) Atherosclerosis of artery of both lower extremities (I70.203) Active confirmed Q7(A), Q8(2B), Q9(1B,2 C) Vital Signs Blood pressure diastolic 75 mm Hg 11/02/2024 Height 6ft 6.5in in 05/03/2025 Blood pressure systolic 140 mm Hg 11/02/2024 Weight 275 lbs 05/03/2025 BMI 31.37 kg/m2 05/03/2025 Procedures Procedure Date Ordered Date Performed Result Body Sit e 74711-XGKSARM NAIL, 1-5 11/02/2024 N/A 66752-KZRZ SKIN LESIONS, OVER 4 11/02/2024 N/A K6878-RWAGOVAG DYSTROPHIC NAILS ANY # 11/02/2024 N/A 23812-YUFVIKU NAIL, 1-5 02/01/2025 N/A 35121-YADU SKIN LESIONS, OVER 4 02/01/2025 N/A F3523-NEGIGVTR DYSTROPHIC NAILS ANY # 02/01/2025 N/A 08438-WEYQNLL NAIL, 1-5 05/03/2025 N/A 31951-XWJB SKIN LESIONS, OVER 4 05/03/2025 N/A O0705-BMDGSRAI DYSTROPHIC NAILS ANY # 05/03/2025 N/A Encounters Encounter Location Date Provider Diagnosis [address] [address] 08/02/2024 Erwin Becker Pain in left foot M79.672 ; Pain in right foot M79.671 ; Xerosis cutis L85.3 ; Tinea unguium B35.1 ; Ataxic gait R26.0 and Neuralgia and neuritis, unspecified M79.[address] [address] 11/02/2024 Josiah Haas Atherosclerosis of artery of both lower extremities I70.203 ; Tinea unguium B35.1 ; Pain in right toe(s) M79.674 ; Pain in left toe(s) M79.675 and Xerosis of skin L85.[address] [address] 02/01/2025 Josiah Waldo Atherosclerosis of artery of both lower extremities I70.203 ; Tinea unguium B35.1 ; Pain in right toe(s) M79.674 ; Pain in left toe(s) M79.675 and Xerosis of skin L85.3 [facility] [address] [address] 05/03/2025 Josiah Haas Atherosclerosis of artery of both lower extremities I70.203 ; Tinea unguium B35.1 ; Pain in right toe(s) M79.674 and Pain in left toe(s) M79.675 [facility] [address] [place] [address] 08/11/2024 Josiah Haas [facility] [address] [place] [phone] 08/26/2024 Josiah Waldo [address] [address] 11/16/2024 Josiah Waldo [address] [address] 02/01/2025 Josiah Haas [address] [address] 05/03/2025 Josiah Haas Assessments Encounter Date Diagnosis (ICD Code) Assessment Notes Treatment Notes Treatment Clinical Notes Section Notes 08/02/2024 Pain in right foot (ICD-10 - M79.671) 08/02/2024 Pain in left foot (ICD-10 - M79.672) 11/02/2024 Atherosclerosis of artery of both lower extremities (ICD-10 - I70.203) Q7(A), Q8(2B), Q9(1B,2C) 02/01/2025 Tinea unguium (ICD-10 - B35.1) 02/01/2025 Atherosclerosis of artery of both lower extremities (ICD-10 - I70.203) Q7(A), Q8(2B), Q9(1B,2C) 05/03/2025 Tinea unguium (ICD-10 - B35.1) 05/03/2025 Atherosclerosis of artery of both lower extremities (ICD-10 - I70.203) Q7(A), Q8(2B), Q9(1B,2C) 05/03/2025 Pain in right toe(s) (ICD-10 - M79.674) 02/01/2025 Pain in right toe(s) (ICD-10 - M79.674) 08/02/2024 Xerosis cutis (ICD-10 - L85.3) 11/02/2024 Tinea unguium (ICD-10 - B35.1) 08/02/2024 Tinea unguium (ICD-10 - B35.1) 02/01/2025 Pain in left toe(s) (ICD-10 - M79.675) 11/02/2024 Pain in right toe(s) (ICD-10 - M79.674) 05/03/2025 Pain in left toe(s) (ICD-10 - M79.675) 02/01/2025 Xerosis of skin (ICD-10 - L85.3) 11/02/2024 Pain in left toe(s) (ICD-10 - M79.675) 08/02/2024 Ataxic gait (ICD-10 - R26.0) 08/02/2024 Neuralgia and neuritis, unspecified (ICD-10 - M79.2) 11/02/2024 Xerosis of skin (ICD-10 - L85.3) Plan Of Treatment Pending Test Test Name Order Date X ray : Foot, left 2V 02/12/2016 X ray : Foot, left 2V 08/11/2017 X ray : Foot, left 2V 08/25/2017 X ray : Foot, left 2V 10/20/2017 X ray : Foot, left 2V 07/27/2018 X ray : Foot, right 2V 07/27/2018 X ray : Foot, right 2V 02/12/2016 X ray : Foot, right 2V 10/20/2017 X ray : Foot, right 2V 08/25/2017 X ray : Foot, right 2V 06/30/2017 X ray : Foot, right 2V 07/14/2017 X ray : Foot, right 2V 07/28/2017 *Uric Acid, Serum 12/26/2022 *Sedimentation Rate-Westergren 08699-HHBFYIL NAIL, 1-5 11/02/2024 31084-SLZWAJJ NAIL, 1-5 02/01/2025 71797-VTZULRQ NAIL, 1-05/03/2025 58741-WFYH SKIN LESIONS, OVER 4 05/03/20 25 08412-CQBC SKIN LESIONS, OVER 4 02/02/20 47339-MDFL SKIN LESIONS, OVER 4 11/02/19 25 Y6362-CAVVSXZL DYSTROPHIC NAILS ANY # U0684-NFMKZCTN DYSTROPHIC NAILS ANY # V8568-LPZROVSE DYSTROPHIC NAILS ANY # 57998-YCJSGLDW OF HEMATOMA/FLUID 022 Next Appt Details Provider Name:Josiah Haas , 08/17/2025 02:00:00 PM, [address] [facility], [address], [place], [address], Insurance Providers Payer Name Payer Address Payer Phone Subscriber Number Group Number Insured Name Patient Relationship to Insured Coverage Start Date Coverage End Date Medicare [employer] [address] [facility] [place] [address] [id number] Mehdi Vincent Self - patient is the insured [facility] [address] [place] [address] [id number] Mehdi Vincent Self - patient is the insured Medical (General) History Medical History History ICD Code Arthritis Measles Chicken pox Neuropathy - Idiopathic Surgical History Surgery Date(Month/Year) lower back 1987? Hammertoe repair with flex tend right fo ot 06/25/2017 HT L 2-4 W/P sap 08/06/17 cervical spine surgery 10/13/23 left hip replacement 12/2024
--- OUTSIDE RECORDS SUMMARY | 2025-07-26 21:34 | XMS_ITS | Clinical Summary ---
Author Organization [facility] [address] [facility] Address [address] [place] [address] Phone Care Team Providers Care Finished Stock Inspector Name Role Phone Donald Pérez MD Primary Care Provider [phone] Allergies Active Allergy Reactions Criticality Noted Date Comments Amoxicillin Hives 06/12/2025 Diclofenac 06/12/2025 Medications gabapentin (NEURONTIN) 100 mg capsule Take 6 capsules (600 mg total) by mouth 1 (one) time each day. 08/06/2020 Active glucosamine-cho ndroitin 500-400 mg tablet Take 1 tablet by mouth 1 (one) time each day. Active cholecalciferol (VITAMIN D-3) 25 mcg (1,000 unit) tablet Take 1 tablet (1,000 Units total) by mouth 2 (two) times a day. Active ascorbic acid (VITAMIN C) 1,000 mg tablet Take 1 tablet (1,000 mg total) by mouth 1 (one) time each day. Active lactobacillus acidoph-l.bulga r 100 million cell granules in packet Take 1 packet by mouth 1 (one) time each day. Active Active Problems Problem Noted Date Diagnosed Date Hyperlipidemia 01/28/2018 Low back pain 01/28/2018 Encounters Date Type Department Care Team Description 06/15/2025 Telephone Gastroenterology - [address] [phone] Brittany Lebron [place] 06/12/2025 3:11 PM EDT - 06/12/2025 11:59 PM EDT Hospital Encounter [facility] Xray [address] [place] [phone] Irritable bowel syndrome with both constipation and diarrhea Discharge Disposition: Home or Self Care 06/12/2025 2:40 PM EDT Consult Gastroenterology - [address] [facility] [address] [place] [phone] Monica Alva PA Irritable bowel syndrome with both constipation and diarrhea (Primary Dx) from Last 3 Months Surgical History Surgery Date Site/Laterality Comments FOOT SURGERY PROCEDURE:FOOT SURGERY BACK SURGERY PROCEDURE:BACK SURGERY HIP SURGERY Bilateral PROCEDURE:HIP SURGERY COLONOSCOPY 05/05/2023 7 yr recall JOINT REPLACEMENT 2020 & 2024 Medical History Medical History Date Comments Sleep apnea slight - 2009? Colon polyp 2012 GERD (gastroesophageal reflux disease) February 2025 Arthritis 2010 Family History Medical History Relation Name Comments Calloway's esophagus Brother Rectal cancer Father's Brother Tacos Salazar Relation Name Status Comments Brother Father's Brother Tacos Salazar Social History Tobacco Use Types Packs/Day Years Used Date Smoking Tobacco: Never Smokeless Tobacco: Never Tobacco Cessation:Counseling Given: Not Answered Alcohol Use Standard Drinks/Week Comments Never 0 (1 standard drink = 0.6 oz pur e alcohol) Sex and Gender Information Value Date Recorded Sex Assigned at Not on file Legal Sex Male 9:23 AM EST Gender Identity Not on file Sexual Orientation Not on file Obstetrics History Last Filed Vital Signs Vital Sign Reading Time Taken Comments Blood Pressure - - Pulse - - Temperature - - Respiratory Rate - - Oxygen Saturation - - Inhaled Oxygen Concentration - - Weight 125 kg (276 lb) 06/12/2025 2:37 PM EDT Height 199.4 cm (6' 6.5 ) 06/12/2025 2:37 PM EDT Body Mass Index 31.49 06/12/2025 2:37 PM EDT Plan of Treatment Health Maintenance Due Date Last Done Comments Pneumococcal Vaccine: 50+ Years (1 of 1 - PCV) 12/08/2005 Falls Risk Assessment 09/07/2022 Hepatitis C Screening 09/07/2022 Medicare Annual Wellness Visit 09/07/2022 Social Influencers of Health Screening 09/07/2022 Depression Screening 10/05/2024 COVID-19 Vaccine ( - 2023-2 5 season) 2025 Influenza Vaccine (#1) 2025 DTaP,Tdap,and Td Vaccines (3 - Td or Tdap) 01/29/2028 01/28/2018, 10/05/2007 Cholesterol Screening (Lipid Panel) 11/28/2029 11/28/2024 RSV Immunization Adult Patients (1 - 1-dose 75+ series) 12/08/2030 Colorectal Cancer Screening: Colonoscopy 06/08/2035 06/08/2025 Zoster Vaccines Completed 10/22/2019, 08/06/2019 HIB Vaccines Aged Out No longer eligi ble based on patient's age to complete this topic HPV Vaccines Aged Out No longer eligi ble based on patient's age to complete this topic Hepatitis A Vaccines Aged Out No long er eligible based on patient's age to complete this topic Hepatitis B Vaccines Aged Out No long er eligible based on patient's age to complete this topic IPV Vaccines Aged Out No longer eligi ble based on patient's age to complete this topic MMR Vaccines Aged Out No longer eligi ble based on patient's age to complete this topic Meningococcal ACWY Vaccine Aged Out N o longer eligible based on patient's age to complete this topic Meningococcal B Vaccine Aged Out No l onger eligible based on patient's age to complete this topic RSV Immunization Patients Under 20 months Aged Out No longer eligible b ased on patient's age to complete this topic Varicella Vaccines Aged Out No longer eligible based on patient's age to complete this topic Procedures Procedure Name Priority Date/Time Associated Diagnosis Comments XR ABDOMEN 1 VIEW Routine 06/12/2025 3:2 1 PM EDT Irritable bowel syndrome with both constipation and diarrhea EXTERNAL COLONOSCOPY REPORT Routine 06/08/2025 1:36 PM EDT from Last 3 Months Results * XR Abdomen 1 View (06/12/2025 3:21 PM EDT) Anatomical Region Laterality Modality Body Radiographic Brittni ging 06/13/2025 11:4 0 AM EDT Impressions 06/13/2025 11:41 AM EDT Nonobstructive bowel gas pattern. There is evidence of moderate constipation. Code 87362 -------- FINAL REPORT -------- Dictated By: Tank Hyde Dictated Date: 06/13/2025 11:40 ET Assigned Physician: Tank Hyde Reviewed and Electronically Signed By: Tank Hyde Signed Date: 06/13/2025 11:41 ET Workstation ID: [id number] Transcribed By: Self Edit Transcribed Date: 06/13/2025 11:40 ET Narrative 06/13/2025 11:41 AM EDT HISTORY: The patient is a 69-year-old male with constipation. FINDINGS: Supine radiographs of the abdomen, without previous for comparison, demonstrate that the patient has undergone previous total bilateral hip replacement surgery. The included portions of the prostheses appear well-positioned and intact. There are degenerative changes of lumbar spine and included portion of the thoracic spine. The bowel gas pattern is nonobstructive. A moderate amount of fecal material is present in the colon from the cecum to the distal descending colon consistent with moderate constipation. No mass or radiopaque calculus is seen. Procedure Note Tank Hyde MD - 06/13/2025 HISTORY: The patient is a 69-year-old male with constipation. FINDINGS: Supine radiographs of the abdomen, without previous forcomparison, demonstrate that the patient has undergone previous totalbilateral hip replacement surgery. The included portions of theprostheses appear well-positioned and intact. There are degenerativechanges of lumbar spine and included portion of the thoracic spine. Thebowel gas pattern is nonobstructive. A moderate amount of fecal materialis present in the colon from the cecum to the distal descending colonconsistent with moderate constipation. No mass or radiopaque calculus isseen. IMPRESSION: Nonobstructive bowel gas pattern. There is evidence of moderateconstipation. Code 87312 -------- FINAL REPORT -------- Dictated By: Tank Hyde Dictated Date: 06/13/2025 11:40 ET Assigned Physician: Tank Hyde Reviewed and Electronically Signed By: Tank Hyde Signed Date: 06/13/2025 11:41 ET Workstation ID: [id number] Transcribed By: Self Edit Transcribed Date: 06/13/2025 11:40 ET us Monica ALVAREZ IMG XR PROCEDURES Final Result * External Colonoscopy Report (06/08/2025 1:36 PM EDT) Anatomical Region Laterality Modality Endoscopy us Historical Provider MD GAINES~PROCEDURE ORDERABLES F inal Result from Last 3 Months Insurance MEDICARE [facility] Care Teams Finished Stock Inspector Relationship Specialty Start Date End Date Donald Pérez MD [address] [place] [address] PCP - General Internal Medicine 05/16/21
--- OUTSIDE RECORDS SUMMARY | 2025-07-26 21:34 | XMS_ITS | Data Portability ---
Author Organization [facility] Jose Francisco Dougherty [facility], [facility] [place] Address [address] [place] [address] Care Team Providers Care Research Investigator Name Role Phone ELIZABETH WESLEY Referring Provider Assessment Encounter Date Assessment Date Assessment LastModified by Organization Details LastModified Time 11/25/2024 11/25/2024 Assessment: Pt able to do all exercise with minimal issue. Pt noted some fatigue and needed occasional rest breaks. Pt noted reduced UT utilization during front raises. Plan: 2x per week for 6 weeks. Use of [place] ESTIM for UE strengthening. [email or web address] Not available 11/27/2024 12:59:03 11/29/2024 11/29/2024 Assessment: Pt able to do all exercise. Pt noted some fatigue but was able to complete therex without significant issue. More focus on stretching based movements vs strengthening today. Plan: 2x per week for 6 weeks. Use of [place] ESTIM for UE strengthening. [email or web address] Not available 11/30/2024 12:24:26 12/01/2024 12/01/2024 Assessment: Reduced loading and ROM focused on today. No increase in symptoms with any exercise today. Reduced stiffness noted following today's session. Plan: 2x per week for 6 weeks. Use of [place] ESTIM for UE strengthening. [email or web address] Not available 12/01/2024 18:27:29 2024 2024 Assessment: Pt had increased discomfort today secondary to overuse. Pt able to do all stretches and exercises with minimal issue. Plan: 2x per week for 6 weeks. Use of [place] ESTIM for UE strengthening. [email or web address] Not available 12/11/2024 16:43:57 12/16/2024 12/16/2024 Assessment: D/C from therapy to focus on hip surgery recovery. Plan: D/C from therapy. Not available 12/25/2024 19:36:21 Plan of Treatment Reminders Order Date Submit Date Provider Last Modified By Organization Details Last Modified Time Details Appointments None record ed. Lab None record ed. Referral None record ed. Procedures None record ed. Surgeries None record ed. Imaging None record ed. Medication Orders None record ed. Patient TargetsNo targets recorded. Patient InstructionsNo instructions recorded. Reason for Referral None Reported. Results Created Date Observation Date Name Description Value Unit Range Abnormal Flag Note LastModifiedBy Organization Detail LastModifiedTime Result Notes None recorded. Procedures Surgical History Date Name Laterality Status Provider Name and Address Organization Details Recorded Time 5 94479 Therapeutic Exercise (1:1) completed ROSEY CURRIET [address] [facility], [place], [address], [facility] 12/25/2024 19:34:51 5 17318: Manual therapy completed ADI LUKE DPT [address], [place], [address], [facility] 12/25/2024 19:34:51 5 43406 Therapeutic Exercise (1:1) completed ADI LUKE DPT [address], [place], [address], [facility] 12/11/2024 16:42:25 5 97456: Manual therapy completed ADI LUKE DPT [address], [place], [address], [facility] 12/11/2024 16:42:34 5 60378 Therapeutic Exercise (1:1) completed ADI LUKE DPT [address], [place], [address], [facility] 12/01/2024 18:27:43 5 35074 Therapeutic Exercise (1:1) completed ADI LUKE DPT [address], [place], [address], [facility] 11/30/2024 12:23:20 5 20219 Therapeutic Exercise (1:1) completed ADI LUKE, DPT [address], [place], [address], [facility] 11/27/2024 12:57:30 5 44820 Therapeutic Exercise (1:1) completed ADI LUKE, DPT [address], [place], [address], [facility] 11/24/2024 18:47:47 5 21391 Therapeutic Exercise (1:1) completed ADI LUKE, DPT [address], [place], [address], [facility] 11/22/2024 17:46:00 5 81468 Therapeutic Exercise (1:1) completed ADI LUKE, DPT [address], [place], [address], [facility] 11/16/2024 14:47:54 5 10401 Therapeutic Exercise (1:1) completed ADI LUKE, DPT [address], [place], [address], [facility] 11/13/2024 14:43:56 5 28179 Therapeutic Exercise (1:1) completed ADI LUKE, DPT [address], [place], [address], [facility] 11/08/2024 11:21:17 5 16615 Therapeutic Exercise (1:1) completed ADI LUKE, DPT [address], [place], [address], [facility] 11/06/2024 22:14:33 5 04627 Therapeutic Exercise (1:1) completed ADI LUKE, DPT [address], [place], [address], [facility] 11/01/2024 18:47:48 5 84220 Therapeutic Exercise (1:1) completed ADI LUKE, DPT [address], [place], [address], [facility] 10/30/2024 21:40:15 5 79806 Therapeutic Exercise (1:1) completed ADI LUKE, DPT [address], [place], [address], [facility] 10/26/2024 12:28:07 5 07967 Therapeutic Exercise (1:1) completed ADI LUKE, DPT [address], [place], [address], [facility] 10/23/2024 16:04:43 5 27149 Therapeutic Exercise (1:1) completed ADI LUKE, DPT [address], [place], [address], [facility] 10/20/2024 13:40:42 5 17091: Low complexity PT Eval completed ADI LUKE, DPT [address], [place], [address], [facility] 10/20/2024 13:32:06 5 G8419 BMI Outside Normal Parameters, F/U not Documented completed ADI LUKE, DPT [address], [place], [address], [facility] 10/20/2024 13:40:31 5 G8427 Current Medication Documented completed ADI LUKE, DPT [address], [place], [address], [facility] 10/20/2024 13:40:26 4 21434 Therapeutic Exercise (1:1) completed ADI LUKE, DPT [address], [place], [address], [facility] 09/18/2024 19:44:32 4 82795 Therapeutic Exercise (1:1) completed ADI LUKE, DPT [address], [place], [address], [facility] 08/24/2024 09:27:16 4 02340 Therapeutic Exercise (1:1) completed ADI LUKE, DPT [address], [place], [address], [facility] 08/05/2024 16:00:12 4 13826 Therapeutic Exercise (1:1) completed ADI LUKE, DPT [address], [place], [address], [facility] 07/31/2024 22:04:50 4 80918 Therapeutic Exercise (1:1) completed ADI LUKE, DPT [address], [place], [address], [facility] 07/28/2024 13:58:14 4 60022 Therapeutic Exercise (1:1) completed ADI LUKE, DPT [address], [place], [address], [facility] 07/19/2024 16:11:11 4 31453 Therapeutic Exercise (1:1) completed ADI LUKE, DPT [address], [place], [address], [facility] 07/14/2024 10:10:30 4 69886 Therapeutic Exercise (1:1) completed ADI LUKE, DPT [address], [place], [address], [facility] 07/11/2024 20:36:59 38366 Therapeutic Exercise (1:1) completed ADI LUKE, DPT [address], [place], [address], [facility] 07/04/2024 16:08:34 4 91387 Therapeutic Exercise (1:1) completed ADI MARLY, DPT [address], [place], [address], [facility] 07/03/2024 20:04:23 4 79940 Therapeutic Exercise (1:1) completed ADI MARLY, DPT [address], [place], [address], [facility] 06/28/2024 22:01:48 4 22585 Therapeutic Exercise (1:1) completed ADI LUKE, DPT [address], [place], [address], [facility] 06/26/2024 20:51:01 4 14174 Therapeutic Exercise (1:1) completed ADI LUKE, DPT [address], [place], [address], [facility] 06/21/2024 15:32:30 4 59026 Therapeutic Exercise (1:1) completed ADI LUKE, DPT [address], [place], [address], [facility] 06/12/2024 21:46:30 4 77659 Therapeutic Exercise (1:1) completed ADI LUKE, DPT [address], [place], [address], [facility] 06/08/2024 20:57:10 4 53191 Therapeutic Exercise (1:1) completed ADI MARLY, DPT [address], [place], [address], [facility] 05/31/2024 11:06:39 4 99987 Therapeutic Exercise (1:1) completed ADI MARLY, DPT [address], [place], [address], [facility] 05/30/2024 20:20:14 08/20/202 4 46285 Therapeutic Exercise (1:1) completed ADI MARLY, DPT [address], [place], [address], [facility] 05/25/2024 22:30:29 4 10478 Therapeutic Exercise (1:1) completed ADI MARLY, DPT [address], [place], [address], [facility] 05/15/2024 19:00:39 4 19124 Therapeutic Exercise (1:1) completed ADI MARLY, DPT [address], [place], [address], [facility] 05/10/2024 14:13:34 4 01526 Therapeutic Exercise (1:1) completed ADI LUKE, DPT [address], [place], [address], [facility] 05/06/2024 09:30:20 4 92451 Therapeutic Exercise (1:1) completed ADI MARLY, DPT [address], [place], [address], [facility] 04/29/2024 15:35:43 4 41874 Therapeutic Exercise (1:1) completed ADI LUKE, DPT [address], [place], [address], [facility] 04/26/2024 15:40:11 4 78637 Therapeutic Exercise (1:1) completed ADI MARLY, DPT [address], [place], [address], [facility] 04/24/2024 18:36:24 4 42521 Therapeutic Exercise (1:1) completed ADI MARLY, DPT [address], [place], [address], [facility] 04/20/2024 08:02:00 4 82428: Manual therapy completed AID MARLY, DPT [address], [place], [address], [facility] 04/20/2024 08:02:14 4 36444 Therapeutic Exercise (1:1) completed ADI MARLY, DPT [address], [place], [address], [facility] 04/12/2024 16:54:43 4 33107 Therapeutic Exercise (1:1) completed ADI MARLY, DPT [address], [place], [address], [facility] 04/10/2024 21:14:32 4 93846 Therapeutic Exercise (1:1) completed ADI MARLY, DPT [address], [place], [address], [facility] 04/05/2024 18:44:20 4 63654 Therapeutic Exercise (1:1) completed ADI MARLY, DPT [address], [place], [address], [facility] 04/03/2024 20:11:04 4 02302 Therapeutic Exercise (1:1) completed ADI MARLY, DPT [address], [place], [address], [facility] 03/30/2024 08:23:10 4 63917 Therapeutic Exercise (1:1) completed ADI MARLY, DPT [address], [place], [address], [facility] 03/27/2024 23:05:31 4 99791 Therapeutic Exercise (1:1) completed ADI MARLY, DPT [address], [place], [address], [facility] 03/24/2024 07:44:55 4 65459 Therapeutic Exercise (1:1) completed ADI MARLY, DPT [address], [place], [address], [facility] 03/17/2024 16:53:43 4 29644 Therapeutic Exercise (1:1) completed ADI MARLY, DPT [address], [place], [address], [facility] 03/15/2024 21:42:53 4 22110 Therapeutic Exercise (1:1) completed ADI MARLY, DPT [address], [place], [address], [facility] 03/11/2024 15:23:42 4 62223 Therapeutic Exercise (1:1) completed ADI MARLY, DPT [address], [place], [address], [facility] 03/04/2024 11:54:05 4 25498 Therapeutic Exercise (1:1) completed ADI MARLY, DPT [address], [place], [address], [facility] 03/03/2024 08:14:46 4 98540 Therapeutic Exercise (1:1) completed ADI MARLY, DPT [address], [place], [address], [facility] 02/24/2024 13:47:11 4 54441 Therapeutic Exercise (1:1) completed ADI MARLY, DPT [address], [place], [address], [facility] 02/23/2024 10:20:06 4 34768 Therapeutic Exercise (1:1) completed ADI MARLY, DPT [address], [place], [address], [facility] 02/19/2024 12:42:15 4 03929: Low complexity PT Eval completed ADI MARLY, DPT [address], [place], [address], [facility] 02/19/2024 12:42:20 4 G8419 BMI Outside Normal Parameters, F/U not Documented completed ADI LUKE DPT [address], [place], [address], [facility] 02/19/2024 12:45:35 4 G8427 Current Medication Documented completed ADI LUKE DPT [address], [place], [address], [facility] 02/19/2024 12:45:40 Imaging Results None recorded. Procedure Notes None recorded. Medical Equipment None Reported. Medications Name Sig Start Date Stop Date Status Note LastModified by Organization Details LastModified Time cyclobenzaprine 10 mg tablet active Not Available Not Available Not Available clindamycin HCl 300 mg capsule active Not Available Not Availab le Not Available prednisone 20 mg tablet active Not Available Not Available Not Available methocarbamol 750 mg tablet TAKE 1 TABLET BY MOUTH 3 TIMES A DAY NEEDED FOR POST-OP SPASMS active Not Available Not Available No t Available ammonium lactate 12 % topical cream active Not Available Not Available Not Available gabapentin 100 mg capsule active Not Available Not Available N ot Available Vitals None Recorded Social History None recorded. Functional Status None recorded. Mental Status None recorded. Family History Nothing Reported. Medical History No medical history recorded. Past Encounters Encounter ID Performer Location Encounter Start Date Encounter Closed Date Diagnosis/Indication Diagnosis SNOMED-CT Code Diagnosis ICD10 Code Diagnosis IMO Codes Diagnosis Note [id number] ROSEY CURRIET [facility] [address] [place] [address] 02/17/2024 15:21:04 02/19/2024 07:26:01 Muscle atrophy 61459500 M62.50 [id number] ROSEY CURRIET [facility] [address] [place] [address] 02/22/2024 14:19:17 02/22/2024 16:06:17 Muscle atrophy 08878802 M62.50 [id number] ADI LUKE DPT [facility] [address] [place] [address] 02/24/2024 11:58:38 02/24/2024 13:59:25 Muscle atrophy 87628082 M62.50 [id number] ADI LUKE, DPT [facility] [address] [place] [address] 03/02/2024 14:29:24 03/02/2024 15:41:03 Muscle atrophy 57135832 M62.50 [id number] ADI LUKE, DPT [facility] [address] [place] [address] 03/04/2024 08:21:22 03/04/2024 09:38:32 Muscle atrophy 38433958 M62.50 [id number] ADI LUKE, DPT [facility] [place] 03/11/2024 13:24:23 03/11/2024 16:07:03 Muscle atrophy 97802843 M62.50 [id number] ADI LUKE DPT [facility] [address] [place] [address] 03/14/2024 14:53:25 03/14/2024 15:59:36 Muscle atrophy 76506161 M62.50 [id number] ADI LUKE, DPT [facility] [address] [place] [address] 03/16/2024 14:51:18 03/16/2024 16:02:02 Muscle atrophy 48509842 M62.50 [id number] ADI LUKE DPT [facility] [address] [place] [address] 03/22/2024 14:48:02 03/22/2024 16:45:17 Muscle atrophy 37764279 M62.50 [id number] ADI LUKE, DPT [facility] [address] [place] [address] 03/25/2024 14:54:34 03/25/2024 15:40:00 Muscle atrophy 49831614 M62.50 [id number] ADI LUKE DPT [facility] [address] [place] [address] 03/29/2024 15:23:01 03/29/2024 16:36:21 Muscle atrophy 27056697 M62.50 [id number] ADI LUKE, DPT [facility] [address] [place], [place] [address] 04/01/2024 14:21:15 04/01/2024 16:11:49 Muscle atrophy 63978873 M62.50 [id number] ADI LUKE, DPT [facility] [address] [place], [place] [address] 04/05/2024 15:21:15 04/05/2024 17:03:04 Muscle atrophy 22958327 M62.50 [id number] ADI LUKE, DPT [facility] [address] [place], [place] [address] 04/08/2024 13:50:28 04/08/2024 15:15:12 Muscle atrophy 49893599 M62.50 [id number] ADI LUKE, DPT [facility] [address] [place], [place] [address] 04/12/2024 14:53:04 04/12/2024 17:21:48 Muscle atrophy 60636714 M62.50 [id number] ADI LUKE, DPT [facility] [address] [place], [place] [address] 04/19/2024 14:57:12 04/19/2024 16:43:31 Muscle atrophy 29812185 M62.50 [id number] ADI LUKE, DPT [facility] [address] [place], [place] [address] 04/22/2024 13:56:28 04/22/2024 15:37:05 Muscle atrophy 28200279 M62.50 [id number] ADI LUKE, DPT [facility] [address] [place], [place] [address] 04/26/2024 14:52:05 04/26/2024 15:46:02 Muscle atrophy 51009508 M62.50 [id number] ADI LUKE, DPT [facility] [address] [place], [place] [address] 04/29/2024 13:51:22 04/29/2024 15:25:59 Muscle atrophy 09921311 M62.50 [id number] ADI LUKE, DPT [facility] [address] [place], [place] [address] 05/05/2024 15:51:20 05/05/2024 17:31:59 Muscle atrophy 07304098 M62.50 [id number] ADI LUKE, DPT [facility] [address] [place], [place] [address] 05/10/2024 12:17:37 05/10/2024 13:34:40 Muscle atrophy 26207783 M62.50 [id number] ADI LUKE, DPT [facility] [address] [place], [place] [address] 05/13/2024 14:21:35 05/13/2024 15:26:24 Muscle atrophy 23737623 M62.50 [id number] ADI LUKE, DPT [facility] [address] [place], [place] [address] 05/24/2024 11:21:08 05/24/2024 12:35:32 Muscle atrophy 60600428 M62.50 [id number] ADI LUKE, DPT [facility] [address] [place], [place] [address] 05/27/2024 14:28:33 05/27/2024 15:59:03 Muscle atrophy 97233131 M62.50 [id number] ADI LUKE, DPT [facility] [address] [place], [place] [address] 05/31/2024 10:39:06 05/31/2024 11:38:07 Muscle atrophy 58863648 M62.50 [id number] ADI LUKE, DPT [facility] [address] [place], [place] [address] 06/07/2024 10:23:57 06/07/2024 15:35:33 Muscle atrophy 89032121 M62.50 [id number] ADI LUKE, DPT [facility] [address] [place], [place] [address] 06/10/2024 12:49:32 06/10/2024 14:11:12 Muscle atrophy 74574578 M62.50 [id number] ADI LUKE, DPT [facility] [address] [place], [place] [address] 06/21/2024 14:58:11 06/21/2024 16:18:26 Muscle atrophy 91210042 M62.50 [id number] ADI LUKE, DPT [facility] [address] [place] [address] 06/24/2024 15:22:18 06/24/2024 16:07:12 Muscle atrophy 79552897 M62.50 [id number] ADI LUKE, DPT [facility] [address] [place] [address] 06/28/2024 11:56:06 06/28/2024 13:21:44 Muscle atrophy 06262441 M62.50 [id number] ADI LUKE, DPT [facility] [address] [place] [address] 07/01/2024 13:48:59 07/01/2024 15:05:45 Muscle atrophy 79939169 M62.50 [id number] ADI LUKE, DPT [facility] [address] [place] [address] 07/04/2024 14:50:13 07/04/2024 16:00:31 Muscle atrophy 83668639 M62.50 [id number] ADI LUKE, DPT [facility] [address] [place] [address] 07/06/2024 14:54:15 07/06/2024 15:44:19 Muscle atrophy 17180889 M62.50 [id number] ADI LUKE, DPT [facility] [address] [place] [address] 07/13/2024 14:56:46 07/13/2024 15:57:58 Muscle atrophy 48759143 M62.50 [id number] ADI LUKE, DPT [facility] [address] [place] [address] 07/19/2024 14:53:30 07/19/2024 16:22:51 Muscle atrophy 69064834 M62.50 [id number] ADI LUKE, DPT [facility] [address] [place] [address] 07/26/2024 14:53:11 07/26/2024 16:06:19 Muscle atrophy 71702340 M62.50 [id number] ADI LUKE, DPT [facility] [address] [place] [address] 07/28/2024 14:52:01 07/28/2024 16:31:47 Muscle atrophy 05117921 M62.50 [id number] ADI LUKE, DPT [facility] [address] [place] [address] 08/03/2024 14:50:13 08/03/2024 15:44:28 Muscle atrophy 86039680 M62.50 [id number] ADI LUKE, DPT [facility] [address] [place] [address] 08/23/2024 14:53:35 08/23/2024 15:58:43 Muscle atrophy 74098924 M62.50 [id number] ADI LUKE, DPT [facility] [address] [place] [address] 09/16/2024 14:53:32 09/16/2024 15:42:40 Muscle atrophy 30904098 M62.50 [id number] ADI LUKE, DPT [facility] [address] [place] [address] 10/18/2024 15:27:04 10/18/2024 16:12:29 Muscle atrophy 46859472 M62.50 [id number] ADI LUKE, DPT [facility] [address] [place] [address] 10/21/2024 14:48:22 10/21/2024 16:05:00 Muscle atrophy 27567584 M62.50 [id number] ADI LUKE, DPT [facility] [address] [place] [address] 10/25/2024 14:49:07 10/25/2024 15:51:19 Muscle atrophy 82507756 M62.50 [id number] ADI LUKE DPT [facility] [address] [place] [address] 10/28/2024 14:55:28 10/28/2024 16:06:33 Muscle atrophy 91703245 M62.50 [id number] ADI LUKE, DPT [facility] [address] [place] [address] 11/01/2024 14:55:10 11/01/2024 15:52:31 Muscle atrophy 51919459 M62.50 [id number] ADI LUKE, DPT [facility] [address] [place] [address] 11/04/2024 14:54:44 11/04/2024 15:29:30 Muscle atrophy 49443392 M62.50 [id number] ADI LUKE, DPT [facility] [address] [place] [address] 11/08/2024 14:56:48 11/08/2024 16:45:46 Muscle atrophy 29309570 M62.50 [id number] ADI LUKE, DPT [facility] [address] [place] [address] 11/11/2024 14:53:55 11/11/2024 15:59:16 Muscle atrophy 71255936 M62.50 [id number] ADI LUKE, DPT [facility] [address] [place] [address] 11/15/2024 15:22:40 11/15/2024 16:21:51 Muscle atrophy 15365940 M62.50 [id number] ADI LUKE, DPT [facility] [address] [place] [address] 11/18/2024 15:24:15 11/18/2024 16:08:16 Muscle atrophy 30683553 M62.50 [id number] ADI LUKE, DPT [facility] [address] [place] [address] 11/22/2024 17:25:10 11/22/2024 21:00:54 Muscle atrophy 03503317 M62.50 [id number] ADI LUKE, DPT [facility] [address] [place] [address] 11/25/2024 14:27:16 11/25/2024 15:17:06 Muscle atrophy 00487055 M62.50 [id number] ADI LUKE, DPT [facility] [address] [place] [address] 11/29/2024 15:23:56 11/29/2024 16:34:13 Muscle atrophy 74096101 M62.50 [id number] ADI LUKE, DPT [facility] [address] [place] [place] [address] 12/01/2024 16:55:10 12/01/2024 17:52:57 Muscle atrophy [id number] M62.50 [id number] CAROLYN CURRIE PT [address] [place] [address] 2024 15:27:23 2024 16:09:29 Muscle atrophy [id number] M62.50 [id number] CAROLYN CURRIE PT [address] [place] [address] 12/16/2024 15:28:25 12/16/2024 15:52:35 Muscle atrophy [id number] M62.50 [id number] Health Concerns Section Related Observation LastModified by Organization Detai ls LastModified Time None Recorded Concern Status LastModified by Organization Details LastModified Time None Recorded Advance Directives Directive None Recorded Payers Insurance Date Sequence Insurance Name Policy Number Policy Solano Covered Member ID Solano Member ID Guarantor Name 12/26/2024 2 [facility] [id number] Mehdi Vincent [id number] Mehdi Vincent 12/03/2024 1 [place]MENT [employer] Mehdi Vincent [id number] Mehdi Vincent 09/07/2024 2 [facility] - MEDICARE ADVANTAGE PLAN (MEDICARE REPLACEMENT HMO) Mehdi Longoria [id number] Mehdi Vincent 09/07/2024 2 [facility] Mehdi Longoria [id number] Mehdi Vincent Notes Date Note Type Note Provider Name and Address Organization Details Recorded Time 11/25/2024 text/html Pt reports that he is doing well today. pt says that he continues to feel he is making slow but steady progress. Pt notes that he feels that he may be getting some muscle bulk back on the front of his shoulder. ADI LUKE DPT [address], [place], [address], [facility] 11/27/2024 12:59:44 11/29/2024 text/html Pt reports that he is sore and tired today. Pt notes that he is getting his hip replaced in december and it is starting to slow him down and cause greater fatigue. Pt notes that the shoulder is fatigued an sore today. ADI LUKE DPT [address], [place], [address], [facility] 11/30/2024 12:24:53 12/01/2024 text/html Pt reports that he is tired today. Pt says that he helped move a couch the other day and has been having some shoulder discomfort and fatigue since. ADI LUKE DPT [address], [place], [address], [facility] 12/01/2024 18:28:02 2024 text/html Pt reports that he has been having some discomfort in the shoulder over the last week or two. Pt notes that he feels that it has been getting a little better over the last week but still has some pain in the lateral shoulder. ADI LUKE DPT [address], [place], [address], [facility] 12/11/2024 16:44:10 12/16/2024 text/html Pt reports that the shoulder discomfort is getting a little better but still has some. Pt notes that he is getting hip surgery on the and will be focusing on that and will D/C from therapy at this time. ADI LUKE DPT [address], [place], [address], [facility] 12/25/2024 19:36:34
--- OUTSIDE RECORDS SUMMARY | 2025-07-26 21:34 | XMS_ITS | Clinical Summary ---
Author Organization [facility] Address [address] [facility] [address] [place] [address] Phone Care Team Providers Care Rickshaw Driver Name Role Phone Donald Pérez MD Primary Care Provider [phone] Donald Pérez MD Unavailable [phone] Nino Mullins MD Unavailable [phone] Daniel Toure MD Unavailable Allergies Active Allergy Reactions Criticality Noted Date Comments Amoxicillin Rash,Hives Low 01/26/2018 Diclofenac Hives 04/24/2023 Diclofenac Sodium Rash Low 01/26/2018 Medications cholecalciferol (VITAMIN D3) 2,000 unit capsule Take 2,000 Units by mouth 2 (two) times a day. Active Lactobacillus acidophilus (PROBIOTIC) 10 billion cell Cap Take 1 capsule by mouth every morning. Active multivitamin per tablet Take 1 tablet by mouth daily. Active ascorbic acid, vitamin C, (VITAMIN C) 1000 MG tablet Take 1,000 mg by mouth daily. Active glucosam/chond-m sm1/C/monico/bor (GLUCOSAMINE-CHO ND-MSM COMPLEX ORAL) Take 2 capsules by mouth daily. 3 Active wheat dextrin (BENEFIBER SUGAR FREE, DEXTRIN, ORAL) Take 3 teaspoonful by mouth every morning. Active gabapentin (NEURONTIN) 100 MG capsuleIndicatio ns:Restless legs Take 6 capsules (600 mg total) by mouth nightly at bedtime. 540 capsule 3 5 Active Medication-Free Text Take 1 capsule by mouth every morning. And 1 by mouth every other evening Active ammonium lactate (AMLACTIN) 12 % cream Apply 1 Application topically 2 (two) times a day. On toes and heals Active clindamycin (CLEOCIN) 300 MG capsule Take 2 capsules 1 hour prior to dental procedure Active polyethylene glycol (MIRALAX) 17 gram/dose powder Take 17 g by mouth Every Afternoon. Active Active Problems Problem Noted Date Diagnosed Date Cervicalgia 06/02/2024 Overview (06/02/2024): Had PT at [facility] 05/05/24 Weight loss 07/15/2021 Partial tear of left Achilles tendon 02/02/2021 Achillodynia 01/28/2018 Diverticulosis of colon 01/28/2018 Erectile dysfunction 01/28/2018 Hyperhidrosis 01/28/2018 Hyperlipidemia 01/28/2018 Low back pain 01/28/2018 Nocturia 01/28/2018 Restless legs syndrome 01/28/2018 Thrombocytopenia 01/28/2018 Screening for prostate cancer 01/28/2018 Encounters Date Type Department Care Team Description 07/26/2025 1:30 PM EDT Office Visit [facility] [address] [place] [address] Donald Pérez MD Routine general medical examination at a health care facility (Primary Dx); Chronic pain of both shoulders; Need for pneumococcal 20-valent conjugate vaccination; Constipation, unspecified constipation type; Muscle weakness of right upper extremity; Screening for prostate cancer; Impaired fasting glucose; Lipid screening from Last 3 Months Immunizations Immunization Administration Dates Next Due Pneumococcal conjugate PCV20 07/26/2025 Td (adult) 5 Lf Tetanus Toxoid, PF, Adsorbed ,10/05/2007 Zoster recombinant 10/22/2019,08/06/2019 Family History Medical History Relation Comments Coarctation of the aorta Brother Cancer Father Lymphoma Father Alzheimer's disease Mother Dementia Mother Relation Status Comments Brother Father non hodkins lymp cheo Mother (Age 93) [id number] Social History Tobacco Use Types Packs/Day Years Used Date Smoking Tobacco: Never Smokeless Tobacco: Never Tobacco Cessation:Counseling Given: Not Answered Alcohol Use Standard Drinks/Week Comments Not Currently 0 (1 standard drink = 0.6 oz [...] with a working camera? Not on file Intimate Partner Violence Answer Date R ecorded Denied Basic Needs Not on file 07/19/2025 In the past 12 months have y ou been in a relationship with a person who hurts, threatens, or tries to control you? No 07/19/2025 Worried food would run out Not on file 07/19 In the past 12 months have y ou been in a relationship with a person who hurts, threatens, or tries to control you? No 07/19/2025 Sex and Gender Information Value Date Recorded Sex Assigned at Male 06/18/2023 10:17 AM EDT Legal Sex Male 9:55 PM EDT Gender Identity Male 06/18/2023 10:17 AM EDT Sexual Orientation Straight 06/18/2023 10 :17 AM EDT Last Filed Vital Signs Vital Sign Reading Time Taken Comments Blood Pressure 118/74 07/26/2025 2:14 PM EDT Pulse 66 07/26/2025 1:29 PM EDT Temperature 36.7 C (98.1 F) 07/26/2025 1:29 PM EDT Respiratory Rate 16 07/26/2025 1:29 PM EDT Oxygen Saturation 97% 07/26/2025 1:29 PM EDT Inhaled Oxygen Concentration - - Weight 123.6 kg (272 lb 6.4 oz) 07/26/2025 1:29 PM EDT Height 196.2 cm (6' 5.24 ) 07/26/2025 1:29 PM ED T Body Mass Index 32.1 07/26/2025 1:29 PM EDT Plan of Treatment Upcoming Encounters Date Type Department Care Team (Late st Contact Info) Description 01/05/2026 4:00 PM EDT [facility] [address] [place] [address] Donald Pérez MD [address] [place] [address] [email or web address] Health Maintenance Due Date Last Done Comments COLOGUARD 12/08/2000 FIT TEST 12/08/2000 FOBT 12/08/2000 SIGMOIDOSCOPY 12/08/2000 VIRTUAL COLONOSCOPY 12/08/2000 INFLUENZA VACCINE (#1) 2025 COVID-19 VACCINE ( season) 2025 DEPRESSION SCREENING 07/19/2026 07/19/2025 Adult Td,Tdap Booster 01/29/2028 01/28/2018, 008 SCREENING FOR DIABETES 04/22/2028 , 04/22/2025, 01/11/2021, Additional history exists COLONOSCOPY 05/05/2028 05/05/2023, 07/0 06/2018, 04/06/2013 COLORECTAL CANCER SCREENING 05/05/2028 LIPID PANEL 11/28/2029 11/28/2024, 09/04, 09/14/2024, Additional history exists RSV VACCINE (1 - 1-dose 75+ series) 12/08/2030 ZOSTER VACCINES Completed 10/22/2019, 08/06/2019 HEPATITIS C SCREENING Completed 07/27/2021, 021 PNEUMOCOCCAL VACCINES (50+ years) Completed 07/26/2025 SMOKING STATUS SCREENING (Once After 26 Yrs) Completed 07/26/2025 HEPATITIS A VACCINES Aged Out No long er eligible based on patient's age to complete this topic HIB VACCINES Aged Out No longer eligi ble based on patient's age to complete this topic MENINGOCOCCAL VACCINES (ACWY) Aged Out No longer eligible based on patient's age to complete this topic MENINGOCOCCAL VACCINES (B) Aged Out N o longer eligible based on patient's age to complete this topic Medical Devices Not on file Procedures Procedure Name Priority Date/Time Associated Diagnosis Comments XR SHOULDER (BILATERAL) Routine 07/26/2025 1:52 PM EDT Chronic pain of both shoulders XR SHOULDER (BILATERAL) Routine 07/10/2025 7:22 PM EDT Pain of both shoulder joints LIPID PANEL Routine 11/28/2024 8:02 AM EST Lipid screening COLONOSCOPY FOR RESULT ENTRY ONLY Routine 05/05/2023 HEPATITIS C ANTIBODY, QUALITATIVE Routine 07/27/2021 OUTSIDE GLUCOSE FASTING Routine 01/11/2021 from Last 3 Months or Most Recently Relevant to Health Maintenance Results * (ABNORMAL) Lipid panel (11/28/2024 8:02 AM EST) HDL 51 mg/dL [facility] Comment: Interpretation <40 mg/dL: Low HDL cholesterol (major risk factor for CHD) Greater than or equal to 60 mg/dL: High HDL cholesterol ( negative risk factor for CHD) HDL - cholesterol is affected by a number of factors, e.g. smoking, excerise, hormones, sex and age. CHOLESTEROL 167 0 - 240 mg/dL [facility] TRIGLYCERIDES 126 30 - 160 mg/dL [facility] LDL 91 50 - 129 mg/dL [facility] Comment: LDL levels in terms of risk for coronary heart disease: <100 mg/dL: Optimal 100-129 mg/dL: Near or above optimal 130-159 mg/dL: Borderline high 160-189 mg/dL: High >190 mg/dL: Very High CARDIAC RISK RATIO 3.3(L) 3.4 - 5.0 [facility] Blood 11/28/2024 8:02 AM EST 11/28/2024 8:13 AM EST Donald Pérez MD LAB BLOOD ORDERABLES Final Re sult [address] [address] * COLONOSCOPY FOR RESULT ENTRY ONLY (05/05/2023) us Donald Pérez MD HEALTH MAINTENANCE Edited Res ult - Final * Hepatitis C antibody, qualitative (07/27/2021) Donald Pérez MD LAB BLOOD ORDERABLES Edited R esult - Final * Outside Glucose,Fasting (01/11/2021) [facility] Glucose, fasting - External 90 65 - 99 mg/dL Historical Provider LAB BLOOD ORDERABLES Joanna l Result from Last 3 Months or Most Recently Relevant [place] [id number] [facility] MEDICARE SUPPLEMENT MEDICARE PART A & B MEDICARE SUPPLEMENT MEDICARE PART A & B MEDICARE SUPPLEMENT MEDICARE PART A & B MEDICARE SUPPLEMENT MEDICARE PART A & B MEDICARE SUPPLEMENT MEDICARE PART A & B Member Subscriber Plan / Payer (Ef fective 2020-Present) Name:eMhdi Vincent Member ID:[id number] Relation to Subscriber:Self Name:Mehdi Vincent Subscriber ID:[id number] Payer ID:[id number] Group ID:Not on file Type:Medicare Address: [employer] [address] MEDICARE SUPPLEMENT MEDICARE PART A & B Member Subscriber Plan / Payer (Ef fective 2020-Present) Name:Mehdi Vincent Member ID:[id number] Relation to Subscriber:Self Name:Mehdi Vincent Subscriber ID:[id number] Payer ID:[id number] Group ID:Not on file Type:Medicare Address: [employer] [address] MEDICARE SUPPLEMENT MEDICARE PART A & B MEDICARE SUPPLEMENT MEDICARE PART A & B Member Subscriber Plan / Payer (Ef fective 2020-Present) Name:Mehdi Vincent Member ID:[id number] Relation to Subscriber:Self Name:Mehdi Vincent Subscriber ID:[id number] Payer ID:[id number] Group ID:Not on file Type:Medicare Address: [employer] [address] MEDICARE SUPPLEMENT Care Teams Rickshaw Driver Relationship Specialty Start Date End Date Donald Pérez MD [address] [place] [address] [email or web address] PCP - General Internal Medicine 12/06/19 Donald Pérez MD [address] [place] [address] [email or web address] Insurance Assigned Provider 01/09/24 Nino Mullins MD [address] [address] Neurosurgery 09/16/23 Daniel Toure MD [address] [place] [address], [address] [place] [address] [email or web address] Neurology 01/05/24 Additional Source Comments The information contained in this document represents components of the legal health record. It is not the complete legal health record.[facility]
--- OUTSIDE RECORDS SUMMARY | 2025-07-26 21:34 | XMS_ITS | Clinical Summary ---
Author Organization [facility] Address [address] [place] [address] Care Team Providers Care Reel Hooker Name Role Phone Donald Pérez MD Primary Care Provider [phone] Medications Medication Sig Dispensed Refills Start Date End Date Status gabapentin (NEURONTIN) 100 MG capsule Take 600 mg by mouth. 0 08/06/2020 Active Social History Tobacco Use Types Packs/Day Years Used Date Smoking Tobacco: Never Assessed Sex and Gender Information Value Date Recorded Sex Assigned at Not on file Gender Identity Not on file Sexual Orientation Not on file Job Start Date Occupation Industry Not on file Not on file Not on file Last Filed Vital Signs Vital Sign Reading Time Taken Comments Blood Pressure - - Pulse - - Temperature - - Respiratory Rate - - Oxygen Saturation - - Inhaled Oxygen Concentration - - Weight 127 kg (280 lb) 10/31/2021 3:00 PM EST Height 198.1 cm (6' 6 ) 10/31/2021 3:00 PM EST Body Mass Index 32.36 10/31/2021 3:00 PM EST Plan of Treatment Health Maintenance Due Date Last Done Comments Hepatitis C Screening 1955 COVID-19 Vaccine (#1) 06/10/1956 Depression Screening 1967 BMI Counseling 12/08/1973 Preventative Health Evaluation 12/08/1973 Colon Cancer Screening (Colonoscopy) 12/08/2000 DTap / Tdap / Td (1 - Tdap) 01/29/2018 04/2 03/2018, 10/05/2007 Fall Risk Assessment 12/08/2020 Pneumococcal Vaccine (1 of 1 - PCV) 12/08/2020 Influenza Vaccine (#1) 2025 RSV Adult > 60+ Yrs or (1 - 1-dose 75+ series) 12/08/2030 Shingrix-Zoster Vaccine Completed 10/22/19 20, 08/06/2019 Hepatitis B Vaccines Aged Out No long er eligible based on patient's age to complete this topic RSV Ped < 20 months Aged Out No longe r eligible based on patient's age to complete this topic Care Teams Reel Hooker Relationship Specialty Start Date End Date Donald Pérez MD [address] [place] [address] [place] [address] PCP - General Internal Medicine 05/16/21
== END 2025-07-26 15:19 | disposition home or self-care (01) ==
LOC: HO.XRAY 15:18
PROVIDERS: PCP Internal Medicine; Visit Provider Internal Medicine
DX: M25.511 Pain in right shoulder (principal); M25.512 Pain in left shoulder; G89.29 Other chronic pain
CPT/HCPCS: 73030

== ENCOUNTER → 2025-07-26 15:29 | Outpatient (BNV) | payer MEDICARE, OTHER, SELFPAY | PROVIDERS: PCP Internal Medicine; Visit Provider Radiology Diagnostic Radiology | DX: M19.011 Primary osteoarthritis, right shoulder (principal); M19.012 Primary osteoarthritis, left shoulder | CPT/HCPCS: 73030 ==